=== PATIENT | female | born 1955 | race Caucasian/White ===

== ENCOUNTER → 2020-09-16 09:24 | Outpatient (BNVA) | payer OTHER, SELFPAY | PROVIDERS: PCP Internal Medicine; Visit Provider Orthopaedic Surgery | DX: M25.461 Effusion, right knee (principal); M17.0 Bilateral primary osteoarthritis of knee | CPT/HCPCS: 20610; J1100 ==

== ENCOUNTER 2024-01-16 13:41 | Outpatient (AMB) | payer MEDICARE, OTHER, SELFPAY ==
--- NOTE | 2024-01-16 14:05 | MHC.OFFVIS ---
Vital Signs 01/16/24 14:09 Height 5 ft Weight 140 lb BMI 27.3 Intake Visit Reasons: OV-B/L knee pain Intake Note: Izzy is a 68 year old female who presents as a new patient with bilateral knee pain. Patient reports her pain has been going on for about 2 years and is a 6 on the 1-10 pain scale. She is using advil, ice and elevation for the pain with some relief. She states she has had surgery on her left knee in 2014. She got fairly good relief from the surgery initially. She denies injury. Her Right knee is worse she can't kneel on it at all. She has had 2 cortisone injections given into her knees over the last 9 years. The injections gave her fairly good relief. She wishes to hold off on surgery if at all possible. Allergies doxycycline Allergy (Unknown, Verified 01/16/24 14:12) hives meperidine [From DEMEROL] Allergy (Unknown, Verified 01/16/24 14:12) PASSED OUT Medication List - Last Reconciled 01/16/24 by Koko Miramontes MD amlodipine 2.5 mg PO DAILY losartan-hydrochlorothiazide 50-12.5 mg 1 tab PO DAILY PFSH Surgical History Status post arthroscopic surgery of left knee (~2014) Family History Father No problems noted. Mother No problems noted. Social History Alcohol intake: current Patient Tobacco Use Status: Never used Tobacco Current occupational status: retired Current occupation: right handed Physical Exam Vital Signs: BMI result Body Mass Index 27.3 Const Other: Well-nourished well-developed very friendly female awake alert and oriented x3 in no acute distress Extrem Other: Bilateral lower extremity examination shows good capillary refill, no skin lesions noted, normal sensation light touch Bilateral knee examination shows minimal effusions, palpable crepitus with range of motion, pain with range of motion, no instability Results Reviewed Results Reviewed: X-rays of the patient's bilateral knee show joint space narrowing, subchondral sclerosis, no acute bony abnormalities Assessment & Plan Assessment & Plan (1) Arthritis of left knee: Code(s): M17.12 - Unilateral primary osteoarthritis, left knee Category: Medical (2) Arthritis of right knee: Code(s): M17.11 - Unilateral primary osteoarthritis, right knee Category: Medical Plan Ms. Hale presents with bilateral knee pains due to degenerative joint disease. I had a lengthy discussion with the patient regarding the treatment options. She wishes to hold off on surgery for as long as possible. I agree with this plan. The risks and benefits of bilateral knee cortisone injections were discussed at length with the patient. The patient wishes to proceed with the injections in 2 weeks just before she goes on a 1 month vacation in [place]. She will follow-up as instructed. Feel free to call me at any time should questions regarding her orthopedic management arise. Thank you very much for asking me to see this very friendly patient. I spent 22 minutes in reviewing the patient's records and imaging studies, seeing the patient and documenting in the medical record. Orders: Orders XR knee LT 3V Today M25.562 - Pain in left knee XR knee RT 3V Today M25.561 - Pain in right knee Coding Level of Care Code New Pt Level 2 (05849) Diagnoses Arthritis of left knee M17.12 Arthritis of right knee M17.11
[2024-01-16 14:09] VITALS: BMI 27.3
== END 2024-01-16 14:31 | disposition home or self-care (01) ==
PROVIDERS: PCP Internal Medicine; Visit Provider Orthopaedic Surgery
DX: M17.0 Bilateral primary osteoarthritis of knee (principal)
CPT/HCPCS: 99203

== ENCOUNTER 2024-01-16 14:34 | Outpatient (REF) | payer MEDICARE, OTHER, SELFPAY ==
--- NOTE | ~2024-01-16 | XR_ITS ---
EXAMINATION: XR BILATERAL KNEES CLINICAL INFORMATION: Pain in bilateral knees. COMPARISON: 11/28/2018. TECHNIQUE: 3 views of each knee. FINDINGS: LEFT KNEE: Bones are diffusely demineralized. Fcvhqqvd-uc-vpiukq narrowing of the medial compartment with prominent marginal osteophytes. Trace joint effusion. Increased posterior patellar osteophytes. Increased narrowing of the patellofemoral compartment. RIGHT KNEE: Bones are diffusely demineralized. Dskgiibw-pc-ckmnwf narrowing of the medial compartment with prominent marginal osteophytes. Trace joint effusion. Increased posterior patellar osteophytes. Increased narrowing of the patellofemoral compartment. XR/XR knee RT 3V IMPRESSION: Progression of degenerative changes in the bilateral knees.
--- NOTE | ~2024-01-16 | XR_ITS ---
EXAMINATION: XR BILATERAL KNEES CLINICAL INFORMATION: Pain in bilateral knees. COMPARISON: 11/28/2018. TECHNIQUE: 3 views of each knee. FINDINGS: LEFT KNEE: Bones are diffusely demineralized. Zuxkxvza-rg-xdvdxw narrowing of the medial compartment with prominent marginal osteophytes. Trace joint effusion. Increased posterior patellar osteophytes. Increased narrowing of the patellofemoral compartment. RIGHT KNEE: Bones are diffusely demineralized. Zpkuynmq-df-cwcihm narrowing of the medial compartment with prominent marginal osteophytes. Trace joint effusion. Increased posterior patellar osteophytes. Increased narrowing of the patellofemoral compartment. XR/XR knee LT 3V IMPRESSION: Progression of degenerative changes in the bilateral knees.
== END 2024-01-16 14:35 | disposition home or self-care (01) ==
LOC: HO.HOSX 14:34
PROVIDERS: Visit Provider Orthopaedic Surgery
DX: M17.0 Bilateral primary osteoarthritis of knee (principal)
CPT/HCPCS: 73562

== ENCOUNTER 2024-02-06 10:24 | Outpatient (AMB) | payer MEDICARE, OTHER, SELFPAY ==
[2024-02-06 10:35] VITALS: BMI 27.3
--- NOTE | 2024-02-06 10:35 | A.OFFVIS_ITS ---
Vital Signs 02/06/24 10:35 Height 5 ft Weight 140 lb BMI 27.3 Intake Visit Reasons: OV- B/L knee inj Intake Note: Izzy is a 68 year old female who presents for a follow up for her bilateral knee pain. Patient reports her pain is worse in her Right knee and has little pain in her Left knee at this time. She would like a cortisone injection in her Right knee today. She has done physical therapy exercises which aggravated her pain. She has also tried Tylenol and anti-inflammatory medicines which gave her minimal relief. Allergies doxycycline Allergy (Unknown, Verified 02/06/24 10:42) hives meperidine [From DEMEROL] Allergy (Unknown, Verified 02/06/24 10:42) PASSED OUT Medication List - Last Reconciled 02/07/24 by Koko Miramontes MD amlodipine 2.5 mg PO DAILY losartan-hydrochlorothiazide 50-12.5 mg 1 tab PO DAILY PFSH Surgical History Status post arthroscopic surgery of left knee (~2014) Family History Father No problems noted. Mother No problems noted. Social History Alcohol intake: current Patient Tobacco Use Status: Never used Tobacco Current occupational status: retired Current occupation: right handed Physical Exam Vital Signs: BMI result Body Mass Index 27.3 Const Other: Well-nourished well-developed very friendly female awake alert and oriented x3 in no acute distress Extrem Other: Bilateral lower extremity examination shows good capillary refill, no skin lesions noted, normal sensation light touch Right knee examination shows a minimal, mild crepitus with range of motion, pain with range of motion, no instability Office Procedures Joint Injection/Drain Joint Injection/Drain Primary Site: right knee Prep: site was prepped using aseptic technique Injected: 40 mg of, DepoMedrol and 1% plain lidocaine Procedure: The patient tolerated the procedure well Coding 48835 - Large joint Procedure code (CPT) selection complete Results Reviewed Results Reviewed: X-rays of the patient's right knee show joint space narrowing, subchondral sclerosis, no acute bony abnormalities Assessment & Plan Assessment & Plan (1) Arthritis of right knee: Code(s): M17.11 - Unilateral primary osteoarthritis, right knee Category: Medical Plan Ms. Hale presents with bilateral knee pains, right greater than left, due to degenerative joint disease. I had a lengthy discussion with the patient re garding the treatment options. The risks and benefits of a right knee cortisone injection were discussed at length with the patient. The patient wished to proceed. She tolerated the injection well. At this point the patient's left knee discomfort is tolerable to her. She will continue with her home exercise program. She will follow up me on an as-needed basis should her symptoms not plateau at an unacceptable level over the next few months. Feel free to call me at any time should questions regarding her orthopedic management arise. I spent 21 minutes in reviewing the patient's records and imaging studies, seeing the patient and documenting in the medical record. Orders: Orders AMB Joint Injection/Aspiration 02/06/24 M17.11 - Unilateral primary osteoarthritis, right knee Coding Level of Care Code Est Pt Level 3 (50385) Diagnoses Arthritis of right knee M17.11 CPT Codes Coding - 30570 Large joint: 81898 - Large joint ([id number])
== END 2024-02-06 11:09 | disposition home or self-care (01) ==
PROVIDERS: PCP Internal Medicine; Visit Provider Orthopaedic Surgery
DX: M17.11 Unilateral primary osteoarthritis, right knee (principal)
CPT/HCPCS: 20610; 99213

== ENCOUNTER → 2024-02-06 10:24 | Outpatient (BNVA) | payer OTHER, SELFPAY | PROVIDERS: PCP Internal Medicine; Visit Provider Orthopaedic Surgery | DX: M17.11 Unilateral primary osteoarthritis, right knee (principal) | CPT/HCPCS: 20610; J1010 ==

== ENCOUNTER 2024-09-09 08:36 | Outpatient (AMB) | payer MEDICARE, OTHER, SELFPAY ==
[2024-09-09 08:39] VITALS: BMI 27.3
--- NOTE | 2024-09-09 08:39 | MHC.OFFVIS ---
Vital Signs 09/09/24 08:39 Height 5 ft Weight 140 lb BMI 27.3 Intake Visit Reasons: Low back pain radiating down right leg Intake Note: Izzy is a 68 year old female who presents with complaints of progressively worsening low back pain which radiates down her right leg to her right foot. She also has intermittent neck pain. The patient describes her back pain as sharp in nature. The patient states that at times her pain is so severe that she has difficulty walking. She has tried Tylenol and anti-inflammatory medicines which gave her minimal relief. Her pain has gotten worse over the last year in spite of continued non operative treatments. She has failed the last 6 weeks of conservative treatment which has included physical therapy exercises, topical creams, Tylenol and anti-inflammatory medicines. At this point the patient's low back pain is interfering with her activities of daily living and her ability to sleep well through the night. Allergies doxycycline Allergy (Unknown, Verified 09/09/24 08:48) hives meperidine [From DEMEROL] Allergy (Unknown, Verified 09/09/24 08:48) PASSED OUT Medication List - Last Reconciled 09/09/24 by Koko Miramontes MD amlodipine 2.5 mg PO DAILY losartan-hydrochlorothiazide 50-12.5 mg 1 tab PO DAILY [facility] Surgical History Status post arthroscopic surgery of left knee (~2014) Family History Father No problems noted. Mother No problems noted. Social History Alcohol intake: current Patient Tobacco Use Status: Never used Tobacco Current occupational status: retired Current occupation: right handed Physical Exam Vital Signs: BMI result Body Mass Index 27.3 Const Other: Well-nourished well-developed very friendly female awake alert and oriented x3 in no acute distress Back/Spine/Pelvis Other: Low back examination shows right-sided paraspinal muscle tenderness, pain with range of motion, positive straight leg raise test on the right at 70 degrees, 4/5 strength with testing of her right hip flexors and knee extensors when compared to 5/5 strength on her left side Assessment & Plan Assessment & Plan (1) Low back pain radiating to right leg: Code(s): M54.50 - Low back pain, unspecified; M79.604 - Pain in right leg Category: Medical Plan Ms. Hale presents with progressively worsening low back pain which radiates down her right leg as well as associated right leg weakness possibly due to lumbar stenosis or a disc herniation. Thus, I will send the patient for an MRI of her lumbar spine for further evaluation. I will see her back once the MRI is completed. She will call me prior to that time should her symptoms worsen in any way. Feel free to call me at any time should questions regarding her orthopedic management arise. I spent 21 minutes in reviewing the patient's records and imaging studies, seeing the patient and documenting in the medical record. Orders: Orders MR lumbar spine wo con Today M54.50 - Low back pain, unspecified, M79.604 - Pain in right leg Coding Level of Care Code Est Pt Level 3 (60234) Complex EM visit Add On G2211 Diagnoses Low back pain radiating to right leg M54.50; M79.604
== END 2024-09-09 09:00 | disposition home or self-care (01) ==
PROVIDERS: PCP Internal Medicine; Visit Provider Orthopaedic Surgery
DX: M54.50 Low back pain, unspecified (principal); M79.604 Pain in right leg
CPT/HCPCS: 99213; G2211

== ENCOUNTER → 2024-09-09 08:36 | Outpatient (BNVA) | payer MEDICARE, OTHER, SELFPAY | PROVIDERS: PCP Internal Medicine; Visit Provider Orthopaedic Surgery | DX: M54.50 Low back pain, unspecified (principal); M79.604 Pain in right leg | CPT/HCPCS: 99212 ==

== ENCOUNTER → 2024-10-02 10:18 | Outpatient (BNV) | payer MEDICARE, OTHER, SELFPAY | PROVIDERS: PCP Internal Medicine; Visit Provider Specialist | DX: M79.604 Pain in right leg (principal) | CPT/HCPCS: 72148 ==

== ENCOUNTER 2024-10-02 10:25 | Outpatient (REF) | payer MEDICARE, OTHER, SELFPAY ==
--- NOTE | ~2024-10-02 | MR_ITS ---
CLINICAL HISTORY: M79.604 - Pain in right leg MR lumbar spine without gadolinium Comparison: None Findings: No scoliosis or spondylolisthesis. No acute fracture or pathologic bone lesion. Cauda equina and conus medullaris within normal limits. Multiple level minimal to moderate broad-based degenerative disc bulge and degenerative facet change No stenoses. Paraspinous musculature intact. IMPRESSION: No acute findings. This document has been electronically signed by: Mazin Espinoza MD on 10/03/2024 08:37:28
== END 2024-10-02 10:26 | disposition home or self-care (01) ==
LOC: HO.MRI 10:25
PROVIDERS: PCP Internal Medicine; Visit Provider Orthopaedic Surgery
DX: M79.604 Pain in right leg (principal); M54.50 Low back pain, unspecified
CPT/HCPCS: 72148

== ENCOUNTER 2024-11-25 10:56 | Outpatient (AMB) | payer MEDICARE, OTHER, SELFPAY ==
--- NOTE | 2024-11-25 10:58 | MHC.OFFVIS ---
Vital Signs 11/25/24 11:01 Height 5 ft Weight 140 lb BMI 27.3 Intake Visit Reasons: OV- lumbar spine MRI review Intake Note: Izzy is a 68 year old female who presents with complaints of progressively worsening low back pain which radiates down her right leg to her right foot as well as pain along the posterior aspect of her right knee. She also has intermittent neck pain. The patient describes her back pain as sharp in nature. The patient states that at times her knee pain is so severe that she has difficulty walking. She has tried Tylenol and anti-inflammatory medicines which gave her minimal relief. Her pain has gotten worse over the last year in spite of continued non operative treatments. She has failed the last 6 weeks of conservative treatment which has included physical therapy exercises, topical creams, Tylenol and anti-inflammatory medicines. At this point the patient's low back pain and posterior right knee pain are interfering with her activities of daily living and her ability to sleep well through the night. Allergies doxycycline Allergy (Unknown, Verified 11/25/24 11:01) hives meperidine [From DEMEROL] Allergy (Unknown, Verified 11/25/24 11:01) PASSED OUT Medication List - Last Reconciled 11/25/24 by Koko Miramontes MD amlodipine 2.5 mg PO DAILY losartan-hydrochlorothiazide 50-12.5 mg 1 tab PO DAILY [facility] Surgical History Status post arthroscopic surgery of left knee (~2014) Family History Father No problems noted. Mother No problems noted. Social History Alcohol intake: current Patient Tobacco Use Status: Never used Tobacco Current occupational status: retired Current occupation: right handed Physical Exam Vital Signs: BMI result Body Mass Index 27.3 Const Other: Well-nourished well-developed very friendly female awake alert and oriented x3 in no acute distress Back/Spine/Pelvis Other: Low back examination shows right-sided paraspinal muscle tenderness, pain with range of motion, positive straight leg raise test on right at 70 degrees Extrem Other: Right knee examination shows a minimal effusion, palpable crepitus with range of motion, pain with range of motion, no instability Results Reviewed Results Reviewed: X-rays of the patient's right knee taken previously show moderate joint space narrowing most significant in the patellofemoral joint, no acute bony abnormalities MRI of the patient's lumbar spine shows ?multiple level of minimal to moderate broad-based degenerative disc bulge and degenerative facet changes Assessment & Plan Assessment & Plan (1) Right knee pain: Code(s): M25.561 - Pain in right knee Category: Medical (2) Low back pain radiating to right leg: Code(s): M54.50 - Low back pain, unspecified; M79.604 - Pain in right leg Category: Medical Plan: Ms. Hale presents with low back pain which radiates down her right leg as well as pain along the posterior aspect of her right knee of unclear etiology. The patient's symptoms might be coming from her degenerative disc disease or her right knee arthritis. Thus, I will arrange for her to have a follow-up appointment with Dr. Whitmore from our pain management Department to see if she is a candidate for diagnostic and possibly therapeutic injections into her knee or back. Feel free to call me at any time should questions regarding her orthopedic arise. I spent 21 minutes in reviewing the patient's records and imaging studies, seeing the patient and documenting in the medical record. Plan I spent 21 minutes in reviewing the patient's records and imaging studies, seeing the patient and documenting in the medical record. Orders: Referrals Pain Management Referral M25.561 - Pain in right knee, M54.50 - Low back pain, unspecified, M79.604 - Pain in right leg Coding Level of Care Code Est Pt Level 3 (09204) Complex EM visit Add On G2211 Diagnoses Right knee pain M25.561 Low back pain radiating to right leg M54.50; M79.604
[2024-11-25 11:01] VITALS: BMI 27.3
== END 2024-11-25 11:35 | disposition home or self-care (01) ==
LOC: HO.HOS 10:57
PROVIDERS: PCP Internal Medicine; Visit Provider Orthopaedic Surgery
DX: M54.50 Low back pain, unspecified (principal); M79.604 Pain in right leg; M25.561 Pain in right knee
CPT/HCPCS: 99213; G2211

== ENCOUNTER → 2024-11-25 10:56 | Outpatient (BNVA) | payer MEDICARE, OTHER, SELFPAY | PROVIDERS: PCP Internal Medicine; Visit Provider Orthopaedic Surgery | DX: M25.561 Pain in right knee (principal); M54.50 Low back pain, unspecified; M79.604 Pain in right leg | CPT/HCPCS: 99212 ==

== ENCOUNTER 2025-01-14 10:18 | Outpatient (AMB) | payer MEDICARE, OTHER, SELFPAY ==
--- NOTE | 2025-01-14 10:24 | MHC.OFFVIS ---
Vital Signs 01/14/25 10:26 Height 5 ft Weight 144 lb BMI 28.1 BP 171/72 H Blood Pressure Location Lt brachial Position Sitting Respiration 16 Pulse 63 Pulse Source Pulse Oximeter Pulse Oximetry (%) 97 Oxygen Delivery Method Room Air Intake Visit Reasons: Pain in right knee Vice President Of Compliance Required: No Allergies doxycycline Allergy (Unknown, Verified 01/14/25 10:28) hives meperidine [From DEMEROL] Allergy (Unknown, Verified 01/14/25 10:28) PASSED OUT Medication List - Last Reconciled 01/14/25 by Jo Celis LPN amlodipine 2.5 mg PO DAILY losartan-hydrochlorothiazide 50-12.5 mg 1 tab PO DAILY HPI HPI Pain in right knee: Details: History of Present Illness The patient is a 69-year-old female presenting with complaints related to low back degenerative disc disease and arthritis of her right knee. Over the last six months, she has been experiencing sharp, stabbing pain behind her knees, triggered by movement such as pivoting, but not by stationary positions or during rest. The episodes, which last for about two minutes, reach a pain intensity of 10/10 but do not impact her sleep or day-to-day activities. Previously performed MRI scans suggest possible issues with lower spinal discs; however, they do not confirm these as sources of the knee pain. Cortisone injections taken for knee arthritis did not affect this particular pain issue. Historically, pain began on the right side and progressed to include the left, exacerbated without swelling, stiffness, or at rest discomfort, leading to consideration of local knee issues rather than nerve-related discomfort. The patient, with a known left-sided meniscus resection 10 years ago, now also fears instability and possible falls, exacerbated by environmental conditions such as cobblestone walking. Pain Description - Onset: Approximately six months ago. - Pain quality: Sharp, stabbing sensation. No burning, numbness or tingling. - Location: Behind the knees. - Triggering movements: Pivoting or moving rapidly in either direction. - Peak pain intensity: 10/10. - Duration: Lasting about two minutes per episode. - Frequency: Occurs with movement, absent at rest or inactivity. - Exacerbating factors: Any dynamic movement, especially pivoting. - Alleviating factors: Stationary positions or rest. - Impact on activities: No interference with sleep or daily activities. Physical Exam - Appears afebrile. - Alert and oriented. - Mood and affect appropriate. - Follows and participates in conversation appropriately. - Respiratory effort is unlabored. - Able to transition from sit to stand unassisted. - Ambulates with bilaterally normal heel strike and toe off. - Able to stand and walk on toes and heels. - Mild tenderness to palpation in the popliteal fossa bilaterally. Results - MRI of the lumbar spine: No definitive findings connecting back issues to knee pain. - Cortisone injections history for knee arthritis: No relief for current pain episodes. Pain Management - Affect: Anxiety regarding potential falls due to knee instability. - Analgesia: High pain ratings during episodes; current medication effectiveness unreported. - Adverse Effects: NONE stated. - Activities of Daily Living: Pain affects movement but not sleep; fear of falling persists during sudden changes in motion. - Aberrant Drug Related Behaviors: NONE reported. [facility] Surgical History Status post arthroscopic surgery of left knee (~2014) Family History Father No problems noted. Mother No problems noted. Social History Alcohol intake: current Patient Tobacco Use Status: Never used Tobacco Current occupational status: retired Current occupation: right handed Physical Exam Vital Signs: Last Vital Signs Pulse 63 01/14/25 10:26 Resp 16 01/14/25 10:26 BP 171/72 H 01/14/25 10:26 Pulse Ox 97 01/14/25 10:26 Oxygen Delivery Method Room Air 01/14/25 10:26 BMI result Body Mass Index 28.1 Assessment & Plan Assessment & Plan (1) Left knee pain: Code(s): M25.562 - Pain in left knee Category: Medical (2) Right knee pain: Code(s): M25.561 - Pain in right knee Category: Medical Plan Plan - Arrange MRI for knees to gather more information on internal structure and possible pathology. - Assess potential benefits from PRP injections for inflammation mitigation and soft tissue regeneration post-MRI. - Collaborate with patient regarding physical therapy as mechanical issues grow clearer. - Monitor progression and effectiveness of interventions following the MRI results. Patient was informed and verbally consented to the use of an ambient scribe for clinic note documentation during this visit. Discussion Notes I discussed the potential sources of the patient's knee pain, likely originating from within the knee rather than the back. The recommendation involves an MRI specifically targeting the knees, as prior lumbar spine MRI did not reveal the cause tied to nerve root entrapment. We discussed the notion of soft tissue involvement, potentially addressing meniscal or soft tissue issues affecting the knee. Differentials include distal hamstring tendinopathy and meniscal injury. After reviewing her concerns regarding mobility and risk of falling, an MRI was ordered to visualize the knee's internal structures better and seek clarity on future interventions. I proposed potential treatments, such as platelet-rich plasma injections, should inflammation or soft tissue degeneration prove significant. We also reviewed the possibility of mechanical pain derivation, recommending evaluating further based on MRI determinations. I assured the patient that diagnostic procedures and follow-up options would be communicated timely, ensuring optimal pain management and adventist of function. Patient Instructions - Await phone call to schedule knee MRI appointment. - Monitor and note any changes in pain pattern or frequency. - Contact if any new concerning symptoms arise. - Prepare for additional physical therapy consultation post-MRI if pain mechanics warrant it. - Continue usual daily activities, avoiding sudden motions that trigger pain. Orders: Orders MR knee LT wo con 01/14/25 M25.562 - Pain in left knee MR knee RT wo con 01/14/25 M25.561 - Pain in right knee Coding Level of Care Code New Pt Level 4 (55885) Diagnoses Left knee pain M25.562 Right knee pain M25.561
[2025-01-14 10:26] VITALS: BP 171/72; PULSE 63; RESP 16; O2SAT 97; BMI 28.1
--- OUTSIDE RECORDS SUMMARY | 2025-01-14 11:33 | XMS_ITS | Encounter Summary ---
Author Organization [facility] Address [address] [place] [address] Care Team Providers Care Newspaper Inserter Name Role Phone Brigette Garcia MD Primary Care Provider [facility] Dale Cardenas MD Unavailable [phone] Joan Lynn NP Unavailable [phone] Encounter Details Date Type Department Care Team Description 12/25/2023 SCAN Card[facility] [address] [facility] [address] [place] [id number] Abstract, Provider Social History Tobacco Use Types Packs/Day Years Used Date Smoking Tobacco: Never Smokeless Tobacco: Never Alcohol Use Standard Drinks/Week Comments Yes 0 (1 standard drink = 0.6 oz pur e alcohol) red wine 3-4 times/weekly Sex Assigned at Date Recorded Not on file Job Start Date Occupation Industry Not on file Not on file Not on file documented as of this encounter Plan of Treatment Not on file documented as of this encounter Visit Diagnoses Not on filedocumented in this encounter Care Teams Newspaper Inserter Relationship Specialty Start Date End Date Brigette Garcia MD PCP - General Internal Medicine 07/25/22 Dale Cardenas MD [address] [facility] [address] [place] [address] Development Executive Cardiovascular Disease 12/28/23 Joan Lynn NP [address] [place] [address] [address] [place] [address] Cardiology 05/14/24 documented as of this encounter
--- OUTSIDE RECORDS SUMMARY | 2025-01-14 11:33 | XMS_ITS | Clinical Summary ---
Author Organization [facility] Address [address] [place] [address] Care Team Providers Care Aquatics Coordinator Name Role Phone Brigette Garcia MD Primary Care Provider [phone] Allergies Active Allergy Reactions Criticality Noted Date Comments Meperidine 05/04/2022 Doxycycline 05/04/2022 Medications Medication Sig Dispensed Refills Start Date End Date Status alendronate (FOSAMAX) tablet 10 mg Take 10 mg by mouth every morning before breakfast. Take with water on empty stomach/Nothing by mouth and do not lie down for next 30 minutes 0 Active Active Problems No known active problems Social History Tobacco Use Types Packs/Day Years Used Date Smoking Tobacco: Never Smokeless Tobacco: Never Alcohol Use Standard Drinks/Week Comments Yes 7 (1 standard drink = 0.6 oz pur e alcohol) Sex and Gender Information Value Date Recorded Sex Assigned at Not on file Gender Identity Not on file Sexual Orientation Not on file Job Start Date Occupation Industry Not on file Not on file Not on file Last Filed Vital Signs Vital Sign Reading Time Taken Comments Blood Pressure 150/71 04/27/2022 11:26 AM EDT Pulse 69 04/27/2022 11:26 AM EDT Temperature 36.8 ??C (98.2 ??F) 04/27/2022 11:26 AM E DT Respiratory Rate - - Oxygen Saturation 99% 04/27/2022 11:26 AM EDT Inhaled Oxygen Concentration - - Weight 63 kg (139 lb) 04/27/2022 11:26 AM EDT Height - - Body Mass Index - - Plan of Treatment Health Maintenance Due Date Last Done Comments Hepatitis C Screening 1955 COVID-19 Vaccine (#1) 05/13/1958 Depression Screening 1969 Preventative Health Evaluation 11/11/1975 Colon Cancer Screening (Colonoscopy) 2002 Breast Cancer Screening (Mammogram) 11/11/2007 Shingrix-Zoster Vaccine (1 of 2) 11/11/2007 DTap / Tdap / Td (2 - Td or Tdap) 05/15/2017 007 Fall Risk Assessment 2022 Osteoporosis Screening (DEXA Scan) 2022 Pneumococcal Vaccine (1 of 1 - PCV) 2022 Influenza Vaccine (#1) 2024 RSV Adult > 60+ Yrs or Pregn ant (1 - 1-dose 75+ series) 2032 Hepatitis B Vaccines Aged Out No long er eligible based on patient's age to complete this topic RSV Ped < 20 months Aged Out No longe r eligible based on patient's age to complete this topic Care Teams Aquatics Coordinator Relationship Specialty Start Date End Date Brigette Garcia MD [address] [place] [address] PCP - General Internal Medicine 03/27/22
--- OUTSIDE RECORDS SUMMARY | 2025-01-14 11:33 | XMS_ITS | Encounter Summary ---
Author Organization [facility] Address [address] [place] [address] Care Team Providers Care Senior Principal Name Role Phone Nimo Cerda MD Primary Care Provider [phone] Brigette Garcia MD Primary Care Provider Dale Lawton MD Unavailable [phone] Joan Lynn NP Unavailable [phone] Reason for Visit * Reason Onset Date Comments REFERRAL 02/25/2014 Encounter Details Date Type Department Care Team Description 02/25/2014 Telephone Adult Medicine [address] [id number] Berkley See PA-C REFERRAL Social History Tobacco Use Types Packs/Day Years Used Date Smoking Tobacco: Never Smokeless Tobacco: Never Alcohol Use Standard Drinks/Week Comments Yes 0 (1 standard drink = 0.6 oz pur e alcohol) red wine 3-4 times/weekly Sex Assigned at Date Recorded Not on file Job Start Date Occupation Industry Not on file Not on file Not on file documented as of this encounter Miscellaneous Notes * Telephone Encounter - Adelaida Navarrete - 02/25/2014 1:19 PM EDT Pt was put on the Urology referrals report for: uti frequent; Priority: Next Available; Pt was called and a letter was sent; pt has not responded. documented in this encounter Plan of Treatment Not on file documented as of this encounter Visit Diagnoses Not on filedocumented in this encounter Care Teams Senior Principal Relationship Specialty Start Date End Date Nimo Cerda MD [address] [place] [address] PCP - General 01/02/1998 07/24/22 Brigette Garcia MD [address] [place] [address] PCP - General Internal Medicine 07/25/22 Dale Cardenas MD [address] [place] [address] [address] [place] [address] Sugar Boiler Cardiovascular Disease 12/28/23 Joan Lynn NP [address] [place] [address] [address] [place] [address] Cardiology 05/14/24 documented as of this encounter
--- OUTSIDE RECORDS SUMMARY | 2025-01-14 11:33 | XMS_ITS | Encounter Summary ---
Author Organization [facility] Address [address] [place] [address] Care Team Providers Care Extruding Press Adjuster Name Role Phone Nimo Cerda MD Primary Care Provider [phone] Brigette Garcia MD Primary Care Provider Dale Lawton MD Unavailable [phone] Joan Lynn NP Unavailable [phone] Encounter Details Date Type Department Care Team Description 03/16/2005 Orders Only Medical [address] [place] [address] [phone] Nimo Cerda MD [address] [place] [address] [phone] ROUTINE GENERAL MEDICAL EXAMINATION AT A HEALTH CARE FACILITY (Primary Dx) Social History Tobacco Use Types Packs/Day Years Used Date Smoking Tobacco: Never Assessed Sex Assigned at Date Recorded Not on file Job Start Date Occupation Industry Not on file Not on file Not on file documented as of this encounter Plan of Treatment Scheduled Orders Name Type Priority Associated Diagnoses Orde r Schedule VENIPUNCTURE Lab Routine Routine General Medical Examination At A Health Care Facility Ordered: 03/16/2005 documented as of this encounter Procedures Procedure Name Priority Date/Time Associated Diagnosis Comments CHG BLOOD COUNT COMPLETE AUTO&AUTO DIFRNTL WBC Routine 03/16/2005 9:26 AM EDT Routine General Medical Examination At A Health Care Facility CHG LIPID PANEL Routine 03/16/2005 9:26 AM EDT Routine General Medical Examination At A Health Care Facility documented in this encounter Results * (ABNORMAL) CBC (AUTO DIFF & PLATELET) (03/16/2005 9:26 AM EDT) WHITE BLOOD COUNT 4.5(L) 4.8 - 10.8 x10-3 [facility] RED BLOOD COUNT 5.0(H) 3.8 - 4.8 x10-6 [facility] Hemoglobin 14.1 12.0 - 15.0 g/dL [facility] Hematocrit 42.8 36 - 46 % [facility] MEAN CORPUSCULAR VOLUME 85.9 79 - 98 fl [facility] MEAN CORPUSCULAR HEMOGLOBIN 28.3 27 - 32 pg [facility] MEAN CORPUSCULAR HGB CONC 32.9 32 - 37 g/dl [facility] RED CELL DISTRIBUTION WIDTH 12.5 11 - 15 % [facility] PLT COUNT 215 130 - 400 x10-3 [facility] NEUTROPHILS % 53 41 - 85 % [facility] LYMPH % 35 15 - 48 % [facility] 03/16/2005 9:26 AM EDT 03/16/2005 9:27 AM EDT Nimo Cerda MD LAB [facility] * LIPID PROFILE (03/16/2005 9:26 AM EDT) Cholesterol 156 0 - 200 mg/dL [facility] TRIGLYCERIDES 42 0 - 150 mg/dL [facility] HDL CHOLESTEROL 78 >40 mg/dL [facility] LDL CALCULATED 70 0 - 100 mg/dL [facility] TC-HDLC RATIO 2.0 0 - 4.4 mg/dL [facility] 03/16/2005 9:26 AM EDT 03/16/2005 9:27 AM EDT Nimo Cerda MD LAB [facility] documented in this encounter Visit Diagnoses Diagnosis Routine general medical examination at a health care facility- Primary documented in this encounter Care Teams Extruding Press Adjuster Relationship Specialty Start Date End Date Nimo Cerda MD [address] [place] [address] PCP - General 01/02/1998 07/24/22 Brigette Garcia MD [address] [place] [address] PCP - General Internal Medicine 07/25/22 Dale Cardenas MD [address] [place] [address] [address] [place] [address] Television Service Engineer Cardiovascular Disease 12/28/23 Joan Lynn NP [address] [place] [address] [address] [place] [address] Cardiology 05/14/24 documented as of this encounter
--- OUTSIDE RECORDS SUMMARY | 2025-01-14 11:33 | XMS_ITS | Encounter Summary ---
Author Organization [facility] Address [address] [place] [address] Care Team Providers Care Aged Or Disabled Carer Name Role Phone Nimo Cerda MD Primary Care Provider [phone] Brigette Garcia MD Primary Care Provider Dale Lawton MD Unavailable Joan Lynn LICENSED REAL ESTATE BROKER Unavailable [phone] Encounter Details Date Type Department Care Team Description 04/17/2017 Telephone Medical Records [address] [place] [address] Abstract, Provider Social History Tobacco Use Types [...] on filedocumented in this encounter Care Teams Aged Or Disabled Carer Relationship Specialty Start Date End Date Nimo Cerda MD [address] [place] [address] PCP - General 01/02/1998 07/24/22 Brigette Garcia MD [address] [place] [address] PCP - General Internal Medicine 07/25/22 Dale Cardenas MD [address] [place] [address] Electro Winning Operator Cardiovascular Disease 12/28/23 Joan Lynn NP [address] [place] [address] [address] [place] [address] Cardiology 05/14/24 documented as of this encounter
--- OUTSIDE RECORDS SUMMARY | 2025-01-14 11:33 | XMS_ITS | Encounter Summary ---
Author Organization [facility] Address [address] [place] [address] Care Team Providers Care Custodial Operations Manager Name Role Phone Nimo Cerda MD Primary Care Provider [phone] Brigette Garcia MD Primary Care Provider Dale Lawton MD Unavailable [phone] Jona Lynn NP Unavailable [phone] Encounter Details Date Type Department Care Team Description 02/10/2021 Photovoltaic Installer Report Medical Records [address] [place] [address] Debbie Turner MD Social History Tobacco Use Types Packs/Day Years [...] on filedocumented in this encounter Care Teams Custodial Operations Manager Relationship Specialty Start Date End Date Nimo Cerda MD [address] [place] [address] PCP - General 01/02/1998 07/24/22 Brigette Garcia MD [address] [place] [address] PCP - General Internal Medicine 07/25/22 Dale Cardenas MD [address] [place] [address] [address] [place] [address] Power Digger Operator Cardiovascular Disease 12/28/23 Joan Lynn, LIBRADO [address] [place] [address] [address] [place] [address] Cardiology 05/14/24 documented as of this encounter
--- OUTSIDE RECORDS SUMMARY | 2025-01-14 11:33 | XMS_ITS ---
Author Organization [facility] Address [address] [place] [address] Care Team Providers Care Eap Counselor Name Role Phone PATRICIA STEWARD Unavailable [phone] YOBANY SIMMS Unavailable [phone] REASON FOR VISIT appt and medicine Encounters Encounter Location Date Provider Diagnosis [phone] [address] 12/24/2024 YOBANY SIMMS PLAN OF TREATMENT Next Appt Details Provider Name:YOBANY SIMMS, 03/31/2025 11:15:00 AM, [address], [place], [address], Progress Notes * HALELori GONZALEZjorgeDOB:1955 (69 yo F)Acc No.[id number]:12/24/2024 Patient:??Izzy HLAE :1955?Age:69 Y?Sex:Fe male Address:[address] [place] [address] * true * Date:??
--- OUTSIDE RECORDS SUMMARY | 2025-01-14 11:33 | XMS_ITS | Encounter Summary ---
Author Organization [facility] Address [address] [place] [address] Care Team Providers Care Lead Systems Analyst Name Role Phone Nimo Cerda MD Primary Care Provider [phone] Brigette Garcia MD Primary Care Provider Dale Lawton MD Unavailable [phone] Joan Lynn CLINICAL APPLICATION MANAGER Unavailable [phone] Encounter Details Date Type Department Care Team Description 04/10/2017 Correctional Guard Report Medical Records [address] [place] [address] Olvin Herrera Social History Tobacco Use Types Packs/Day Years [...] on filedocumented in this encounter Care Teams Lead Systems Analyst Relationship Specialty Start Date End Date Nimo Cerda MD [address] [place] [address] PCP - General 01/02/1998 07/24/22 Brigette Garcia MD [address] [place] [address] PCP - General Internal Medicine 07/25/22 Dale Cardenas MD [address] [place] [address] [place] [address] Harbormaster Cardiovascular Disease 12/28/23 Joan Lynn NP [address] [place] [address] [address] [place] [address] Cardiology 05/14/24 documented as of this encounter
--- OUTSIDE RECORDS SUMMARY | 2025-01-14 11:33 | XMS_ITS | Encounter Summary ---
Author Organization [facility] Address [address] [place] [address] Care Team Providers Care Community Health Navigator Name Role Phone Nimo Cerda MD Primary Care Provider [phone] Brigette Garcia MD Primary Care Provider [facility]availformerly [facility] e Dale Cardenas MD Unavailable [phone] Joan Lynn NP Unavailable [phone] Encounter Details Date Type Department Care Team Description 03/15/2017 Fiberglass Insulation Installer Report Medical Records [address] [place] [address] [facility] [address] [place] [address] Social History Tobacco Use Types Packs/Day Years [...] on filedocumented in this encounter Care Teams Community Health Navigator Relationship Specialty Start Date End Date Nimo Cerda MD [address] [place] [address] PCP - General 01/02/1998 07/24/22 Brigette Garcia MD [address] [place] [address] PCP - General Internal Medicine 07/25/22 Dale Cardenas MD [address] [place] [address] [address] [place], [place] [id number] Center Machine Set Up Operator Cardiovascular Disease 12/28/23 Joan Lynn, LIBRADO [address] [place] [address] [address] [place] [address] Cardiology 05/14/24 documented as of this encounter
--- OUTSIDE RECORDS SUMMARY | 2025-01-14 11:33 | XMS_ITS | Encounter Summary ---
Author Organization [facility] Address [address] [place] [address] Care Team Providers Care Metal Expediter Name Role Phone Nimo Cerda MD Primary Care Provider [phone] Brigette Garcia MD Primary Care Provider Dale Lawton MD Unavailable [phone] Joan Lnyn NAVAL ARCHITECT Unavailable [phone] Encounter Details Date Type Department Care Team Description 10/28/2014 Release of Information Medical Records [address] [place] [address] Abstract, Provider Social History Tobacco Use Types [...] on filedocumented in this encounter Care Teams Metal Expediter Relationship Specialty Start Date End Date Nimo Cerda MD [address] [place] [address] PCP - General 01/02/1998 07/24/22 Brigette Garcia MD [address] [place] [address] PCP - General Internal Medicine 07/25/22 Dale Cardenas MD [address] [place] [address] Director Apparel Cardiovascular Disease 12/28/23 Joan Lynn NP [address] [place] [address] [address] [place] [address] Cardiology 05/14/24 documented as of this encounter
--- OUTSIDE RECORDS SUMMARY | 2025-01-14 11:33 | XMS_ITS | Encounter Summary ---
Author Organization [facility] Address [address] [place] [address] Care Team Providers Care Front Line Leader Name Role Phone Nimo Cerda MD Primary Care Provider [phone] Brigette Garcia MD Primary Care Provider Dale Lawton MD Unavailable [phone] Joan Lynn NP Unavailable [phone] Reason for Visit * Reason Onset Date Comments Provider Call Back 09/11/2013 Encounter Details Date Type Department Care Team Description 09/11/2013 Telephone Gastroenterology - [address] [address] Venu Nogueira MD Provider Call Back Social History Tobacco Use Types Packs/Day Years Used Date Smoking Tobacco: Never Smokeless Tobacco: Never Alcohol Use Standard Drinks/Week Comments Yes 0 (1 standard drink = 0.6 oz pur e alcohol) socially Sex Assigned at Date Recorded Not on file Job Start Date Occupation Industry Not on file Not on file Not on file documented as of this encounter Miscellaneous Notes * Telephone Encounter - Venu Nogueira MD - 09/11/2013 11:57 AM EST She can continue this. * Telephone Encounter - Patsy Matos - 09/11/2013 10:20 AM EST Patient is calling because she is on an Antibiotic for Styes in her eyes, it is call Doxycycline-Hyclate- 50mg per day, would she be okay to continue taking this or should she stop documented in this encounter Plan of Treatment Not on file documented as of this encounter Visit Diagnoses Not on filedocumented in this encounter Care Teams Front Line Leader Relationship Specialty Start Date End Date Nimo Cerda MD [address] [place] [address] PCP - General 01/02/1998 07/24/22 Brigette Garcia MD [address] [place] [address] PCP - General Internal Medicine 07/25/22 Dale Cardenas MD [address] [place] [address] [address] [place] [address] Tube Lancer Cardiovascular Disease 12/28/23 Joan Lynn NP [address] [place] [address] [address] [place] [address] Cardiology 05/14/24 documented as of this encounter
--- OUTSIDE RECORDS SUMMARY | 2025-01-14 11:34 | XMS_ITS | Encounter Summary ---
Author Organization [facility] Address [address] [place] [address] Care Team Providers Care Logging Crew Supervisor Name Role Phone Nimo Cerda MD Primary Care Provider [phone] Brigette Garcia MD Primary Care Provider Dale Lawton MD Unavailable [phone] Joan Lynn NP Unavailable [phone] Reason for Visit * Reason Onset Date Comments Urinary Tract Infection 12/06/2012 Encounter Details Date Type Department Care Team Description 12/06/2012 Telephone Adult Medicine [address] [phone] Nimo Cerda MD [address] [place] [address] [phone] Urinary Tract Infection Social History Tobacco Use Types Packs/Day Years [...] encounter Miscellaneous Notes * Telephone Encounter - Farheen Manuela López - 12/06/2012 11:56 AM EDT Pt has had bladder pain and pressure x 3 days Pt has not had any chest pain or SOB, denies any N/V/D or fever, has lower abd pain and pressure with bloating in the lower pelvic area .she has no dysuria, no urgency or frequency, she has no blood in the urine, she has not been constipated Pt to see Jesse stephenson at 3:00 Past Medical History Diagnosis Date ??? 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 Chest pain, unspecified 05/15/2007 ETT (-) 2005 Outpatient Prescriptions Prior to Visit Medication Sig Dispense Refill ??? MULTIVITAMIN OR qd * Telephone Encounter - Toña Kowalski - 12/06/2012 11:39 AM EDT Symptoms patient is presenting: pt has uti or bladder infection, pt having pain and pressure How long has patient had these symptoms?: 3 days PCP: Nimo Cerda MD [facility] Plan: PPO $15 [place] [id number] Product Type: PPO [id number] documented in this encounter Plan of Treatment Not on file documented as of this encounter Visit Diagnoses Not on filedocumented in this encounter Care Teams Logging Crew Supervisor Relationship Specialty Start Date End Date Nimo Cerda MD [address] [place] [address] PCP - General 01/02/1998 07/24/22 Brigette Garcia MD [address] [place] [address] PCP - General Internal Medicine 07/25/22 Dale Cardenas MD [address] [place] [address] [place] [address] Plate Glass Polisher Cardiovascular Disease 12/28/23 Joan Lynn NP [address] [place] [address] [place] [address] Cardiology 05/14/24 documented as of this encounter
--- OUTSIDE RECORDS SUMMARY | 2025-01-14 11:34 | XMS_ITS | Clinical Summary ---
Author Organization [facility] Address [address] [place] [address] Care Team Providers Care Property Custodian Name Role Phone Brigette Garcia MD Primary Care Provider Dale Lawton MD Unavailable [phone] Joan Lynn NP Unavailable [phone] Allergies Active Allergy Reactions Severity Noted Date Comments Meperidine Hcl 2005 Doxycycline 2019 hives Medications Medication Sig Dispensed Refills Start Date End Date Status Multiple Vitamins-Minerals (MULTIVITAMIN & MINERAL OR) Take 1 Tablet by mouth daily. 0 Active losartan (COZAAR) 50 MG tablet Take 1 Tablet by mouth daily. 0 Active aspirin 81 MG EC tablet Take 1 Tablet by mouth daily. 0 Active amlodipine (NORVASC) 5 MG tablet Take 1 Tablet by mouth daily. 90 Tablet 2 05/14/2024 Active Active Problems Problem Noted Date Snoring 05/14/2024 Last Assessment & Plan: Patient reports that she does snore during the night. Will order sleep apnea study. SEAY (dyspnea on exertion) 05/14/2024 Last Assessment & Plan: Patient still reporting some dyspnea on exertion especially when she is going upstairs. She has had recent 48-hour Holter monitor, EKG, and stress echo testing which did not reveal an underlying cause. Did discuss with the patient the importance of proper weight management, she has added 10 pounds over the past year which could be contributing to this dyspnea on exertion. I have also educated the patient on the importance of exercise. I have instructed her to follow-up with her PCP as source of dyspnea on exertion does not appear to be cardiac related. Abnormal stress test 01/07/2024 Last Assessment & Plan: Patient's stress test is abnormal from EKG standpoint and from a dyspnea standpoint. I suspect the EKG changes are unchanged compared to what was noted on the abnormal stress test she had done in 2005. My suspicion is that these changes are secondary to mild left ventricular hypertrophy with ST segment changes secondary to diastolic dysfunction. In fact majority of her symptoms may be secondary to diastolic dysfunction due to poorly controlled blood pressure. Her pressure in the office today is high on multiple times checked. I started her on 2.5 mg of amlodipine and she stay on lisinopril hydrochlorothiazide. I am sending her for repeat stress echocardiogram. Send her for 48-hour Holter monitor to assess for arrhythmia. Palpitation 01/07/2024 Last Assessment & Plan: May be secondary to poorly controlled blood pressure Burn 10/06/2019 Last Assessment & Plan: Explained appears to be healing, based on her history that it is getting smaller and less inflamed. She should continue urgent care instructions and schedule follow up with PCP. Elevated BP without diagnosis of hyperte nsion 10/06/2019 Last Assessment & Plan: Patient with significant hypertension.I think this patient suffers from hypertension and diastolic dysfunction. In the past she has had poorly controlled blood pressures. I am adding 2.5 mg of amlodipine I warned about lightheadedness and dizziness but I really think that the majority of her symptoms are brought on by diastolic dysfunction. We can repeat the stress test using stress echocardiography but again my suspicion is that this is diastolic dysfunction playing a part in her symptoms Hyperlipidemia 01/09/2019 Bursitis of right hip 11/14/2017 Perioral Dermatitis/ cheilitis/ PATCH TE STING BY ALLERGY ALL NEGATIVE 04/02/2017 Hypertension 04/02/2017 Last Assessment & Plan: Patient is hypertensive at today's appointment at 140/90. She reports this is consistent with readings at home and at her other medical appointments. She is currently utilizing 2.5 mg amlodipine p.o. as well as the combination losartan 50 mg/hydrochlorothiazide 12.5 mg p.o. daily. Patient will have amlodipine titrated up to 5 mg p.o. daily. She will be asked to continue to take blood pressure measurements at home. She has been educated on the common side effects of these medications. Patient has an appointment with her primary care provider next month at which point her blood pressure will be monitored again. If necessary would recommend increasing amlodipine to 10 mg daily if her blood pressure remains elevated. OSTEOPOROSIS 09/06/2006 Resolved Problems Problem Noted Date Resolved Date Elevated lipoprotein(a) 01/09/2019 01/10/20 19 Overweight 11/15/2015 04/13/2017 Chest pain, unspecified 05/15/2007 04/02/20 17 Overview: ETT (-) 2005 Immunizations Name Administration Dates Next Due TD (STATE SUPPLIED FOR ADULTS AND CHILDREN) 12/10 Tdap 05/15/2007 Family History Medical History Relation Name Comments Cancer of the Colon Father Cancer, Other Father [place] Father at age 75 Multiple Myeloma Mother 75 neg breast Other 1 neg ovarian Other 2 No Known Problems Sister Rajani CA Breast Negative Hx CA Ovarian Negative Hx Cancer of the Pancreas Negative Hx Cancer of the Prostate Negative Hx Uterine Cancer Negative Hx Relation Name Status Comments Father (Age 75) Mother (Age 75) Other 1 Other 2 Sister Rajani Alive Social History Tobacco Use Types Packs/Day Years Used Date Smoking Tobacco: Never Passive Smoke Exposure: Never Smokeless Tobacco: Never Tobacco Cessation:Counseling Given: Not Answered Alcohol Use Standard Drinks/Week Comments Yes 0 (1 standard drink = 0.6 oz pur e alcohol) red wine 3-4 times/weekly Sex Assigned at Date Recorded Not on file Job Start Date Occupation Industry Not on file Not on file Not on file Last Filed Vital Signs Vital Sign Reading Time Taken Comments Blood Pressure 140/90 05/14/2024 8:14 AM EDT Pulse 53 05/14/2024 8:14 AM EDT Temperature 36.4 ??C (97.6 ??F) 12/08/2021 8:35 AM ED T Respiratory Rate 16 12/08/2021 8:35 AM EDT Oxygen Saturation 98% 05/14/2024 8:14 AM EDT Inhaled Oxygen Concentration - - Weight 66.3 kg (146 lb 1.6 oz) 05/14/2024 8:14 A M EDT Height 152.4 cm (5') 05/14/2024 8:14 AM EDT Body Mass Index 28.53 05/14/2024 8:14 AM EDT Plan of Treatment Health Maintenance Due Date Last Done Comments Covid-19 Vaccine (#1) 05/13/1956 DEPRESSION SCREEN 1969 SHINGLES VACCINE (1 of 2) 11/11/2007 FALL RISK ASSESSMENT 2022 PNEUMOCOCCAL VACCINE (1 - PCV) 2022 BONE DENSITY SCREENING 01/10/2023 , 01/09/2018, 01/26/2016, Additional history exists MAMMOGRAM 07/30/2024 07/30/2023, 07/11, 07/21/2021, Additional history exists BMI CHECK/ADVISE 09/10/2024 07/22/2020, 10/2019, 01/09/2019, Additional history exists CHOLESTEROL SCREENING 01/06/2025 01/07/2020 , 01/02/2019, 04/02/2017, Additional history exists INFLUENZA (Season Ended) 2025 DTAP/TDAP/TD (3 - Td or Tdap) 01/02/2029 01/02/2019, 05/15/2007 COLON CANCER SCREENING 01/18/2031 , 01/18/2021, 09/17/2013, Additional history exists HEPATITIS C SCREENING Completed 07/27/2014 Care Teams Property Custodian Relationship Specialty Start Date End Date Brigette Garcia MD PCP - General Internal Medicine 07/25/22 Dale Cardenas MD [address] [place] [address] [address] [place] [address] [employer] Cardiovascular Disease 12/28/23 Joan Lynn NP [address] [place] [address] [address] [place] [address] Cardiology 05/14/24
--- OUTSIDE RECORDS SUMMARY | 2025-01-14 11:34 | XMS_ITS | Patient Health Record ---
Author Organization [employer] [facility] Address [address] [facility] [place] [address] Care Team Providers Care Improvement Intern Name Role Phone PATRICIA GARCIA Unavailable [phone] YOBANY SIMMS Unavailable [phone] LAUREANO HAGAN Unavailable [phone] ALLERGIES Allergen (clinical drug ingredient) Drug/Non Drug Allergy documented on EMR Reaction Allergy Type Onset Date Status meperidine Demerol Unknown Drug Allergy Active doxycycline Doxycycline Unknown Drug Allergy Act rob RESULTS Component Value Reference Range Notes Tristan Dexa Axial Skeleton Reviewed date:02/12/2024 10:49:46 AM Interpretation: Performing Lab: Notes/Report: Original Ordering Provider: PATRICIA GARCIA MD [facility] LIPID PANEL, STANDARD Reviewed date:03/27/2024 08:07:17 AM Interpretation: Performing Lab:NL2, [facility] [address] [place], [place] [address] Annita Cunningham Notes/Report: FASTING:YES FASTING: YES CHOLESTEROL, TOTAL 208 <200 mg/dL HDL CHOLESTEROL 74 > OR = 50 mg/dL TRIGLYCERIDES 98 <150 mg/dL LDL-CHOLESTEROL 114 Reference range: <100 Desirable range <100 mg/dL for primary prevention; <70 mg/dL for patients with CHD or diabetic patients with > or = 2 CHD risk factors. LDL-C is now calculated using the Tamiko calculation, which is a validated novel method providing better accuracy than the Friedewald equation in the estimation of LDL-C. Klaus BAKER et al. PEG. 2013;310(19): 1189-2929 (http://education.[employer].com/f aq/RQM329) CHOL/HDLC RATIO 2.8 <5.0 (calc) NON HDL CHOLESTEROL 134 <130 mg/dL (calc) For patients with diabetes plus 1 major ASCVD risk factor, treating to a non-HDL-C goal of <100 mg/dL (LDL-C of <70 mg/dL) is considered a therapeutic option. COMPREHENSIVE METABOLIC PANE L Reviewed date:03/27/2024 08:07:11 AM Interpretation: Performing Lab:2, [facility] [address] Annita Cunningham Notes/Report: FASTING:YES FASTING: YES GLUCOSE 88 65-99 mg/dL Fasting reference interval UREA NITROGEN (BUN) 13 7-25 mg/dL CREATININE 0.57 0.50-1.05 mg/dL EGFR 100 > OR = 60 mL/min/1.73m2 BUN/CREATININE RATIO SEE NOTE: 6-22 (calc) Not Reported: BUN and Creatinine are within reference range. SODIUM 140 135-146 mmol/L POTASSIUM 4.1 3.5-5.3 mmol/L CHLORIDE 103 98-110 mmol/L CARBON DIOXIDE 34 20-32 mmol/L CALCIUM 9.4 8.6-10.4 mg/dL PROTEIN, TOTAL 6.6 6.1-8.1 g/dL ALBUMIN 4.2 3.6-5.1 g/dL GLOBULIN 2.4 1.9-3.7 g/dL (calc) ALBUMIN/GLOBULIN RATIO 1.8 1.0-2.5 (calc) BILIRUBIN, TOTAL 0.5 0.2-1.2 mg/dL ALKALINE PHOSPHATASE 50 37-153 U/L AST 19 10-35 U/L ALT 23 6-29 U/L CBC (INCLUDES DIFF/PLT) Reviewed date:03/27/2024 08:06:54 AM Interpretation: Performing Lab:NL2, [facility] [address] Annita Cunningham Notes/Report: FASTING:YES FASTING: YES WHITE BLOOD CELL COUNT 4.7 3.8-10.8 Thousand/uL RED BLOOD CELL COUNT 4.92 3.80-5.10 Million/uL HEMOGLOBIN 14.1 11.7-15.5 g/dL HEMATOCRIT 44.6 35.0-45.0 % MCV 90.7 80.0-100.0 fL MCH 28.7 27.0-33.0 pg MCHC 31.6 32.0-36.0 g/dL RDW 13.3 11.0-15.0 % PLATELET COUNT 255 140-400 Thousand/uL MPV 9.4 7.5-12.5 fL ABSOLUTE NEUTROPHILS [phone] cells/uL ABSOLUTE LYMPHOCYTES 7008 034-7607 cells/uL ABSOLUTE MONOCYTES 277 200-950 cells/uL ABSOLUTE EOSINOPHILS 80 15-500 cells/uL ABSOLUTE BASOPHILS 38 0-200 cells/uL NEUTROPHILS 60.9 LYMPHOCYTES 30.7 MONOCYTES 5.9 EOSINOPHILS 1.7 BASOPHILS 0.8 URINALYSIS, COMPLETE Reviewed date:03/27/2024 08:07:02 AM Interpretation: Performing Lab:NL2, [facility] [id number] [place], [place] [address] Annita Cunningham Notes/Report: FASTING:YES FASTING: YES COLOR YELLOW YELLOW APPEARANCE CLEAR CLEAR SPECIFIC GRAVITY 1.010 1.001-1.035 PH 7.5 5.0-8.0 GLUCOSE NEGATIVE NEGATIVE BILIRUBIN NEGATIVE NEGATIVE KETONES NEGATIVE NEGATIVE OCCULT BLOOD NEGATIVE NEGATIVE PROTEIN NEGATIVE NEGATIVE NITRITE NEGATIVE NEGATIVE LEUKOCYTE ESTERASE TRACE NEGATIVE WBC NONE SEEN < OR = 5 /HPF RBC NONE SEEN < OR = 2 /HPF SQUAMOUS EPITHELIAL CELLS NONE SEEN < OR = 5 /HPF BACTERIA NONE SEEN NONE SEEN /HPF HYALINE CAST NONE SEEN NONE SEEN /LPF NOTE This urine was analyzed for the presence of WBC, RBC, bacteria, casts, and other formed elements. Only those elements seen were reported. D-DIMER Reviewed date:07/29/2024 08:16:15 AM Interpretation: Performing Lab: Notes/Report: D-Dimer <230 ng/mL (D-Dimer units) is the threshold for exclusion of DVT/PE. D-Dimer may be elevated in: Critically ill, severely infected, trauma patients, DIC, acute CVA, acute VA, unstable angina, AF, old age, , and smoking. D-Dimer may be decreased with: Initiation of heparin therapy and oral anticoagulants. D-Dimer, Quant (D-DU) <150 <=230 ng/mL DDU MG MAMMO DIGITAL SCREENING W KAREY QUEZADA Reviewed date:08/13/2024 03:00:15 PM Interpretation: Performing Lab: Notes/Report: Note See Note [facility], a member of [employer] Patient Name: IZZY HALE Date of : 1955 Reason for Exam: Breast cancer screen, avg risk, asymptomatic (Age => 42y) Exam Date: 08/11/2024 [id number] EST Report Status: Final Ordering Provider: PATRICIA GARCIA PCP: PATRICIA GARCIA EXAM: MG MAMMO DIGIT AL SCREENING W KAREY QUEZADA EXAM DATE: 08/11/2024 8:03 AM HISTORY: Breast canc er screen, avg risk, asymptomatic (Age => 42y) COMPARISON: Mammogra ms dating back to 05/25/2020 with most recent of 07/30/2023. TECHNIQUE: Bilateral digital breast tomosynthesis was performed in the CC and MLO projections. Computer aided detection with ralali 3D 3.1 was employed. TISSUE DENSITY: b. T here are scattered areas of fibroglandular density. FINDINGS: No suspicious masses , grouped microcalcifications, or areas of architectural distortion are seen. The skin and vascularity are unremarkable. IMPRESSION: Stable mammographic appearance of the breasts. No evidence of malignancy is seen. A negative mammogram in the presence of a clinically suspicious palpable abnormality does not preclude the possibility of malignancy or alter the indications for biopsy. BI-RADS: Category 1: Negative RECOMMENDATION(S): 1: Routine screening mammogram BILATERAL in 1 year. Mammo Location: [facility] Radiology Department, [address] [place] [address], [address], . -------- FINAL REPOR T -------- Dictated By: Monique Nunez Dictated Date: 08/11 15:10 ET Assigned Physician: Monique Nunez Reviewed and Electronically Signed By: Monique Nunez Signed Date: 024 15:12 ET Workstation ID: [id number] Transcribed By: Self Edit Transcribed Date: 08/11/2024 15:10 ET XR ESOPHAGRAM Reviewed date:10/02/2024 07:57:32 AM Interpretation: Performing Lab: Notes/Report: Note See Note [facility], a member of [employer] Patient Name: IZZY HALE Date of : 1955 Reason for Exam: R09.[id number] Exam Date: 10/01/2024 [id number] EST Report Status: Final Ordering Provider: LAUREANO HAGAN PCP: PATRICIA GARCIA FINDINGS: Double con trast esophagram performed. COMPARISON: None HISTORY: Pt complain s of constant need to clear throat, globus sensation, SOB x ~ 1 year, increased frequency of symptoms, rare heartburn- TUMS relieves symptoms, stable wgt, no previous surgery. Medical Representative radiographs: Frontal view of the chest. Lateral view of the neck Technique: Medical Representative radiographs: Frontal view of the chest. Lateral view of the neck Gas-forming crystals were administered orally. High density and low density barium administered orally under fluoroscopic control. The patient was exam ined upright and recumbent. Simple provocative maneuvers were performed to assess for the presence of gastroesophageal reflux. A 12.5 mm barium tab let was administered. Findings: Medical Representative: CHEST: No mediastina l or hilar mass. Lung volumes are large. No consolidation or major zone of atelectasis. Mild convex right scoliosis. Biapical thickening likely postinflammatory. Chondroid lesion in the proximal left humerus could be enchondroma or bone infarct. Lateral view of the neck: Mild anterolisthesis of C4 relative to C5. The airway is patent. No prevertebral soft tissue swelling. Pharyngoesophagram: Rapid sequence imaging of the hypopharynx during swallowing demonstrates prompt initiation of swallowing. There is normal soft palate elevation and normal epiglottic motion. There is no laryngeal penetration or ivan aspiration. There is no residual in the vallecula nor in the piriform sinuses. Thoracic esophagus: Normal distensibility and mucosal pattern without evidence of ulceration, stricture or mass formation. Hiatal hernia: A sma ll reducible sliding type hiatal hernia was present. Reflux: There was mi ld GE reflux demonstrated while rolling on the table. 12.5 mm Barium pill: Swallowed without difficulty. Prompt passage of pill from the esophagus into the stomach. DAP: 431.9 mGym^2 IMPRESSION: Small hiatal hernia. Mild GE reflux. No mass or ulcer. -------- FINAL REPOR T -------- Dictated By: John Alex Dictated Date: 10/01 10:41 ET Assigned Physician: John Burgess Reviewed and Electronically Signed By: John Burgess Signed Date: 025 10:47 ET Workstation ID: [id number] Transcribed By: Self Edit Transcribed Date: 10/01/2024 10:41 ET Urinalysis, Complete-[id number] Reviewed date:10/05/2024 07:16:40 PM Interpretation: Performing Lab:[facility], [address] [place] [address], Phone - [phone], Director - [place] Notes/Report: Specific Atwood 1.009 1.005-1.030 pH 7.5 5.0-7.5 Urine-Color Yellow Yellow Appearance Clear Clear WBC Esterase Trace Negative Protein Negative Negative/Trace Glucose Negative Negative Ketones Negative Negative Occult Blood Negative Negative Bilirubin Negative Negative Urobilinogen,Semi-Qn 0.2 0.2-1.0 mg/dL Nitrite, Urine Negative Negative Microscopic Examination See below: Microscopic was indicated and was performed. Microscopic Examination WBC None seen 0 - 5 /hpf RBC None seen 0 - 2 /hpf Epithelial Cells (non renal) None seen 0 - 10 /hpf Epithelial Cells (renal) Casts None seen None seen /lpf Cast Type Crystals Crystal Type Mucus Threads Bacteria None seen None seen/Few Yeast Trichomonas Comment CBC With Differential/Platel et-[id number] Reviewed date:10/05/2024 07:09:56 PM Interpretation: Performing Lab:[facility], [address] [place] [address], Phone - [phone], Director - [place] Notes/Report: WBC 4.3 3.4-10.8 x10E3/uL RBC 5.02 3.77-5.28 x10E6/uL Hemoglobin 14.3 11.1-15.9 g/dL Hematocrit 43.2 34.0-46.6 % MCV 86 79-97 fL MCH 28.5 26.6-33.0 pg MCHC 33.1 31.5-35.7 g/dL RDW 12.4 11.7-15.4 % Platelets 224 150-450 x10E3/uL Neutrophils 55 Not Estab. % Lymphs 34 Not Estab. % Monocytes 8 Not Estab. % Eos 2 Not Estab. % Basos 1 Not Estab. % Immature Cells Neutrophils (Absolute) 2.4 1.4-7.0 x10E3/uL Lymphs (Absolute) 1.4 0.7-3.1 x10E3/uL Monocytes(Absolute) 0.3 0.1-0.9 x10E3/uL Eos (Absolute) 0.1 0.0-0.4 x10E3/uL Baso (Absolute) 0.0 0.0-0.2 x10E3/uL Immature Granulocytes 0 Not Estab. % Immature Grans (Abs) 0.0 0.0-0.1 x10E3/uL NRBC Hematology Comments: Lipid Panel-[id number] Reviewed date:10/05/2024 07:09:56 PM Interpretation: Performing Lab:[facility], [facility], Phone - [phone], Director - MDJodry Notes/Report: Cholesterol, Total 176 100-199 mg/dL Triglycerides 54 0-149 mg/dL HDL Cholesterol 73 >39 mg/dL VLDL Cholesterol Maicol 11 5-40 mg/dL LDL Chol Calc (NIH) 92 0-99 mg/dL LDL Calc Comment: Comp. Metabolic Panel (14)-3 [id number] Reviewed date:10/05/2024 07:16:50 PM Interpretation: Performing Lab:[facility], [facility], [place], Phone - [phone], Director - MDJodry Notes/Report: Glucose 95 70-99 mg/dL BUN 16 8-27 mg/dL Creatinine 0.66 0.57-1.00 mg/dL eGFR 97 >59 mL/min/1.73 BUN/Creatinine Ratio 24 12-28 Sodium 141 134-144 mmol/L Potassium 4.4 3.5-5.2 mmol/L Chloride 103 96-106 mmol/L Carbon Dioxide, Total 26 20-29 mmol/L Calcium 9.4 8.7-10.3 mg/dL Protein, Total 6.3 6.0-8.5 g/dL Albumin 4.4 3.9-4.9 g/dL Globulin, Total 1.9 1.5-4.5 g/dL Bilirubin, Total 0.5 0.0-1.2 mg/dL Alkaline Phosphatase 43 44-121 IU/L AST (SGOT) 19 0-40 IU/L ALT (SGPT) 17 0-32 IU/L REASON FOR REFERRAL Reason please evaluate. Diagnosis 1 Shortness of breath (R06.02) Referral Organization [facility] Referring Provider First Name LAUREANO Referring Provider Last Name BENTLEY Referring Provider Speciality Internal M edicine Referred Provider Specialty Pulmonology Clinical Notes Arabella Will 04/2024 09:47:09 AM > faxed pt info to dr. Jordan's office. p) [phone] f) [phone], Octavio Tee 08/21/2024 01:42:25 PM > refaxed, Octavio Tee 11/24/2024 02:36:18 PM > refaxed to [phone] Referral Priority Routine MEDICATIONS Medication SIG (Take, Route, Frequency, Duration) Notes Start Date End Date Status Prolia 60 MG/ML 60 mg Subcutaneous e very 6 months for 1 days 06/03/2024 Active Azithromycin 250 MG two tablets day 1, o ne tablet day 2-5 Orally daily for 5 days 01/08/2025 Active Losartan Potassium-HCTZ 50-12.5 MG TAKE 1 TABLET BY MOUTH EVERY DAY FOR 90 DAYS for 90 Active Calcium Active Multivitamin Active Aspir-Low Active amLODIPine Besylate 2.5 MG 1 tablet Oral ly Once a day for 90 days Active Lpueeqve-Foopwpdat-Myqfwki h 3.5-01814-3.1 1 application into the lower eyelid of affected eye Ophthalmic Three times a day for 7 days 01/08/2025 Active IMMUNIZATIONS Vaccine Route Administration Date Status Comme nts SHINGRIX SC Subcutaneous 06/06/2022 Administered SHINGRIX IM Intramuscular 10/19/2022 Administered PROBLEMS Problem Type ICD Code Onset Dates Problem Status W/U Status Risk SNOMED Code Notes Problem Vitamin D deficiency, unspecified (E55.9) Active confirmed 67182784 Problem Age-related osteoporosis without current pathological fracture (M81.0) Active confirmed 46908665 Problem Shortness of breath (R06.02) Active confirmed Shortness of breath (006825366) Problem Encounter for screening for diabetes mellitus (Z13.1) Active confirmed 441181116 Problem Type 2 diabetes mellitus without complications (E11.9) Active confirmed Type II diabete s mellitus without complication (088863334) Problem Essential hypertension (I10) Active confirmed 00486217 Problem Hyperlipidemia, unspecified hyperlipidemia type (E78.5) Active confirmed 76868113 Problem Annual physical exam (Z00.00) Active confirmed 308021581 Problem Seasonal allergies (J30.2) Active confirmed Seasonal a llergy (368230581) Problem Vitamin D deficiency (E55.9) Active confirmed Vitamin D deficiency (52789154) Problem Osteoporosis without current pathological fracture, unspecified osteoporosis type (M81.0) Active confirmed 20912830 Problem Clavicle pain (M89.8X1) Active confirmed Clavicle pain (773196824) Problem Platelets decreased (D69.6) Active confirmed Thrombocyt openic disorder (746714636) Problem Mass of lower extremity, unspecified laterality (R22.40) Active confirmed Problem Elevated lipids (E78.5) Active confirmed Elevated fastin g lipid profile (167977587685) Problem Lipid screening (Z13.220) Active confirmed 684565328 Problem Osteoporosis (M81.0) Active confirmed Osteoporosis (47057202) Problem GERD (gastroesophageal reflux disease) (K21.9) Active confirmed Gastroesophagea l reflux disease (941587167) Problem Knee pain (M25.569) Active confirmed Knee pain (7925977241) Problem Osteoarthritis (M19.90) Active confirmed Osteoarthritis (456022646) Problem Globus sensation (R09.A2) Active confirmed Globus sensatio n (475312549) VITAL SIGNS Heart Rate 76 /min 01/08/2025 Oximetry 97 % 01/08/2025 Blood pressure diastolic 84 mm Hg 01/08/2025 Height 60 in 01/08/2025 Blood pressure systolic 134 mm Hg 01/08/2025 Weight 148.5 lbs 01/08/2025 BMI 29 kg/m2 01/08/2025 Encounters Encounter Location Date Provider Diagnosis [facility] [address] [place] [address] 07/09/2024 TALAL GARCIA Pernicious anemia D51.0 [facility] [address] [place] [address] 08/15/2024 LAUREANO HAGAN [facility] [address] [place] [address] 10/07/2024 YOBANY SIMMS [facility] [address] [place] [address] 04/02/2024 YOBANY SIMMS Hypertension, unspecified type I10 ; Wellness examination Z00.00 ; Osteoporosis without current pathological fracture, unspecified osteoporosis type M81.0 ; Elevated lipids E78.5 ; Shortness of breath R06.02 ; Encounter for screening for depression Z13.31 ; Encounter for screening for other disorder Z13.89 and Other specified counseling Z71.89 [facility] [address] [place] [address] 07/15/2024 LAUREANO BENTLEY Knee pain M25.569 ; Clavicle pain M89.8X1 ; Globus sensation R09.A2 and Essential hypertension I10 [facility] [address] [place] [address] 10/09/2024 YOBANY SIMMS Hypertension, unspecified type I10 ; Osteoporosis without current pathological fracture, unspecified osteoporosis type M81.0 ; Elevated lipids E78.5 ; Shortness of breath R06.02 ; Seasonal allergies J30.2 and Vitamin D deficiency E55.9 [facility] [address] [place] [address] 01/08/2025 YOBANY SIMMS Elevated lipids E78. 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 and Hordeolum externum of right upper eyelid H00.011 [address] [place] [address] 02/18/2024 PATRICIA GARCIA [facility] [address] [place] [address] 04/23/2024 PATRICIA GARCIA [facility] [address] [place] [address] 06/03/2024 TALVIKI GARCIA [facility] [address] [place] [address] 06/18/2024 TALVIKI GARCIA [facility] [address] [place] [address] 06/27/[address] [place] [address] 06/30/2024 YOBANY SIMMS [address] [place] [address] 07/22/[address] [place] [address] 08/14/[address] [place] [address] 10/06/2024 YOBANY SIMMS [facility] [address] [facility] [place] [address] 10/09/2024 PATRICIA GARCIA [facility] [address] [place] [address] 11/20/2024 PATRICIA GARCIA [facility] [address] [place] [address] 11/20/2024 YOBANY SIMMS Osteoporosis without current pathological fracture, unspecified osteoporosis type M81.0 [address] [place] [address] 12/24/2024 YOBANY SIMMS [address] [place] [address] 01/07/2025 PATRICIA GARCIA ASSESSMENTS Encounter Date Diagnosis Assessment Notes Treatment Notes Treatment Clinical Notes Section Notes 04/02/2024 Hypertension, unspecified type (ICD-10 - I10) Patient up-to-date on all routine screening and vaccines. Healthcare proxy is her Fran. # Chest palpitations: EKG showing bradycardia at Previous visit, but otherwise without concern. Ordered exercise stress test which was positive during the test, so she is following with cardiology Dr. Cardenas. Having repeat echo, was put on a monitor, Taking amlodipine 2.5 mg. Blood pressure stable. Follow with cardiology in May. # Osteoporosis: Decrease in bone density 5 4% since 2022. Patient has tried Fosamax, which she got jaw pain so she discontinued. Also trialed Evista, which she did not tolerate well. Discussed Prolia, but she is not interested at this time. States she will take vitamin D/calcium, and think about it for her next visit in 6 months. Is aware of the risk factors of untreated osteoporosis. #Hypertension: BP today in office is stable. Continue with hydrochlorothiazide, losartan, and amlodipine. #Multivitamin: Patient should continue taking for an added benefit of nutrition #Vitamin D3: Patient should continue taking supplement for her Osteoporosis # Hyperlipidemia: Total cholesterol 208. Discussed lifestyle # Patient with shortness of breath, following with cardiology to rule out cardiac etiology, they think it is related to her blood pressure, questioning also pulmonary anterolaterally. Carbon dioxide 34. Will start with chest x-ray due to shortness of breath but may need pulmonary function testing. Patient to follow-up in 6 months for repeat blood work, chest x-ray in the meantime. Follow-up with cardiology in the meantime. Patient seen and examined. Comprehensive discussion was done on the following. 1. Nutrition: It is important to follow a healthy diet based on lots of vegetables and legumes and good fat. Avoid processed food and processed carbohydrates. Prepare your own meals. Read labels and avoid high fructose corn syrup, processed chemicals added to increase shelf life and preprepared meals. Avoid fast foods. Eat slowly and plan meals for a week. Try to count calories and be mindful off daily calorie intake. Get into the habit of keeping an eye on your weight by using an appropriate scale. Learn to log exercise and discussed fitness Apps like [employer] which can help keep log off calories taken versus calories burned. Local food should be preferred. Discussed Dirty Dozen Versus Clean Fifteen. Discussed healthy supplements like fish oil, Tumeric, Curcumin, Melatonin, Resveratrol, Probiotics, Vitamin-D, Alpha-Lipoic acid, Vitamin-D and coconut oil. 2. It is important to exercise regularly. Is a good habit to walk at least 30 minutes a day. Gentle weightlifting with standard precautions to protect the back. Finding activity like cycling or hiking and get into the habit of engaging in it. Stretching before and after the exercises important. It is also important to contact me if there are any problems like shortness of breath, chest pain, back pain and joint or muscle pain associated with the exercise. 3. Discussed age appropriate screening guidelines. Colonoscopy needs to start at age 50 with stool for occult blood as appropriate. There is a new test that can test for genetic abnormalities in the stool sample, Cologuard. This would not replace a colonoscopy but could be used as a screening tool for patients who do not want a colonoscopy. We discussed the importance of early detection of colon cancer. 4. Discussed current guidelines with respect to breast examination, mammogram and pap smear for early detection of breast and cervical cancer. Patient advised to follow up with these appointments. 5. Discussed safe driving and no use of smart phone while driving 6. Age-appropriate immunizations were discussed. A tetanus booster is needed every 10 years. Flu vaccine is recommended every year just before the start of the flu season. Shingles vaccine is recommended after age 50 but not all insurances cover it. Pneumonia vaccine is given after age 65 unless there are certain comorbidities for which it is started earlier. 7. Diagnostic labs were discussed. These could include/not limited to CBC CMP and lipids with fasting blood glucose and insulin levels. Vitamin D and hemoglobin A1c testing might be appropriate. All quetsions answered to patients satisfaction. Patient verbalized understanding of diagnosis and treatments explained. To call sooner prior to next visit it any questions/concerns arise. Case discussed with collaborating physician Sukhi Garcia who reviewed the assessment and plan. Chart, medications, labs, vital signs reviewed. Dictation was accomplished with the use of [employer] voice recognition software, prone to medical misidentifications and grammatical errors. This is unintentional and the practitioner does try to identify and correct these, but some could still be present. Please do not hesitate to contact practitioner for clarification. 04/02/2024 Wellness examination (ICD-10 - Z00.00) Patient up-to-date on all routine screening and vaccines. Healthcare proxy is her Fran. # Chest palpitations: EKG showing bradycardia at Previous visit, but otherwise without concern. Ordered exercise stress test which was positive during the test, so she is following with cardiology Dr. Cardenas. Having repeat echo, was put on a monitor, Taking amlodipine 2.5 mg. Blood pressure stable. Follow with cardiology in May. # Osteoporosis: Decrease in bone density 5 4% since 2022. Patient has tried Fosamax, which she got jaw pain so she discontinued. Also trialed Evista, which she did not tolerate well. Discussed Prolia, but she is not interested at this time. States she will take vitamin D/calcium, and think about it for her next visit in 6 months. Is aware of the risk factors of untreated osteoporosis. #Hypertension: BP today in office is stable. Continue with hydrochlorothiazide, losartan, and amlodipine. #Multivitamin: Patient should continue taking for an added benefit of nutrition #Vitamin D3: Patient should continue taking supplement for her Osteoporosis # Hyperlipidemia: Total cholesterol 208. Discussed lifestyle # Patient with shortness of breath, following with cardiology to rule out cardiac etiology, they think it is related to her blood pressure, questioning also pulmonary anterolaterally. Carbon dioxide 34. Will start with chest x-ray due to shortness of breath but may need pulmonary function testing. Patient to follow-up in 6 months for repeat blood work, chest x-ray in the meantime. Follow-up with cardiology in the meantime. Patient seen and examined. Comprehensive discussion was done on the following. 1. Nutrition: It is important to follow a healthy diet based on lots of vegetables and legumes and good fat. Avoid processed food and processed carbohydrates. Prepare your own meals. Read labels and avoid high fructose corn syrup, processed chemicals added to increase shelf life and preprepared meals. Avoid fast foods. Eat slowly and plan meals for a week. Try to count calories and be mindful off daily calorie intake. Get into the habit of keeping an eye on your weight by using an appropriate scale. Learn to log exercise and discussed fitness Apps like [employer] which can help keep log off calories taken versus calories burned. Local food should be preferred. Discussed D[employer] Vers[employer] Fifteen. Discussed healthy supplements like fish oil, Tumeric, Curcumin, Melatonin, Resveratrol, Probiotics, Vitamin-D, Alpha-Lipoic acid, Vitamin-D and coconut oil. 2. It is important to exercise regularly. Is a good habit to walk at least 30 minutes a day. Gentle weightlifting with standard precautions to protect the back. Finding activity like cycling or hiking and get into the habit of engaging in it. Stretching before and after the exercises important. It is also important to contact me if there are any problems like shortness of breath, chest pain, back pain and joint or muscle pain associated with the exercise. 3. Discussed age appropriate screening guidelines. Colonoscopy needs to start at age 50 with stool for occult blood as appropriate. There is a new test that can test for genetic abnormalities in the stool sample, Cologuard. This would not replace a colonoscopy but could be used as a screening tool for patients who do not want a colonoscopy. We discussed the importance of early detection of colon cancer. 4. Discussed current guidelines with respect to breast examination, mammogram and pap smear for early detection of breast and cervical cancer. Patient advised to follow up with these appointments. 5. Discussed safe driving and no use of smart phone while driving 6. Age-appropriate immunizations were discussed. A tetanus booster is needed every 10 years. Flu vaccine is recommended every year just before the start of the flu season. Shingles vaccine is recommended after age 50 but not all insurances cover it. Pneumonia vaccine is given after age 65 unless there are certain comorbidities for which it is started earlier. 7. Diagnostic labs were discussed. These could include/not limited to CBC CMP and lipids with fasting blood glucose and insulin levels. Vitamin D and hemoglobin A1c testing might be appropriate. All quetsions answered to patients satisfaction. Patient verbalized understanding of diagnosis and treatments explained. To call sooner prior to next visit it any questions/concerns arise. Case discussed with collaborating physician Sukhi Garcia who reviewed the assessment and plan. Chart, medications, labs, vital signs reviewed. Dictation was accomplished with the use of [employer] voice recognition software, prone to medical misidentifications and grammatical errors. This is unintentional and the practitioner does try to identify and correct these, but some could still be present. Please do not hesitate to contact practitioner for clarification. 07/15/2024 Clavicle pain (ICD-10 - M89.8X1) Izzy is a pleasant 68-year-old female who presents today for multitude of concerns. #Elevated blood pressure readin/80, patient states that her blood pressure normally does not run this high, checks it at home we will continue to monitor #Right knee pain: States that she experiences a occasional sharp pain behind her right knee, states that this knee has been bothersome, follows with [facility]. Sustained a cortisone injection back in January, intermittently becomes swollen she utilizes icing and Aleve to alleviate the swelling. Ordered a behind the right knee ultrasound today to rule out a Quinones's cyst. Consider obtaining an MRI if imaging is normal. Additionally ordered a right knee x-ray to ensure there are no bony abnormalities. #Shortness of breath: Patient was seen on 05/18/2024, she underwent a stress echo that revealed normal resting echo with preserved ejection fraction and no regional wall motion abnormalities. Additionally in January 2024 she underwent 48-hour Holter monitoring that revealed predominant sinus rhythm. Additionally she had a EKG conducted, and was ordered a sleep study. Will refer to pulmonology, as the patient may benefit from pulmonary function testing. #Right clavicular discomfort: Patient states that her clavicle is growing into her trachea, upon physical exam there are no abnormalities between her right and left clavicular bones. Bilateral clavicular x-ray ordered today. #Globus sensation: Barium swallow ordered today All questions have been answered to patient's satisfaction. Patient verbalized understanding of diagnosis and treatments explained. Advised to call sooner prior to next visit it any questions/concerns arise. Case discussed with Sukhi FRANK who reviewed the assessment and plan. Chart, medications, labs, vital signs reviewed. Dictation was accomplished with the use of [employer] voice recognition software, which is prone to medical misidentifications and grammatical errors. This are unintentional and the practitioner does try to identify and correct these, but some could still be present. Please do not hesitate to contact practitioner for clarification. 07/15/2024 Knee pain (ICD-10 - M25.569) Izzy is a pleasant 68-year-old female who presents today for multitude of concerns. #Elevated blood pressure readin/80, patient states that her blood pressure normally does not run this high, checks it at home we will continue to monitor #Right knee pain: States that she experiences a occasional sharp pain behind her right knee, states that this knee has been bothersome, follows with [facility]. Sustained a cortisone injection back in January, intermittently becomes swollen she utilizes icing and Aleve to alleviate the swelling. Ordered a behind the right knee ultrasound today to rule out a Quinones's cyst. Consider obtaining an MRI if imaging is normal. Additionally ordered a right knee x-ray to ensure there are no bony abnormalities. #Shortness of breath: Patient was seen on 05/18/2024, she underwent a stress echo that revealed normal resting echo with preserved ejection fraction and no regional wall motion abnormalities. Additionally in January 2024 she underwent 48-hour Holter monitoring that revealed predominant sinus rhythm. Additionally she had a EKG conducted, and was ordered a sleep study. Will refer to pulmonology, as the patient may benefit from pulmonary function testing. #Right clavicular discomfort: Patient states that her clavicle is growing into her trachea, upon physical exam there are no abnormalities between her right and left clavicular bones. Bilateral clavicular x-ray ordered today. #Globus sensation: Barium swallow ordered today All questions have been answered to patient's satisfaction. Patient verbalized understanding of diagnosis and treatments explained. Advised to call sooner prior to next visit it any questions/concerns arise. Case discussed with Sukhi FRANK who reviewed the assessment and plan. Chart, medications, labs, vital signs reviewed. Dictation was accomplished with the use of [employer] voice recognition software, which is prone to medical misidentifications and grammatical errors. This are unintentional and the practitioner does try to identify and correct these, but some could still be present. Please do not hesitate to contact practitioner for clarification. 07/09/2024 Pernicious anemia (ICD-10 - D51.0) 10/09/2024 Hypertension, unspecified type (ICD-10 - I10) # Chest palpitations: EKG showing bradycardia at Previous visit, but otherwise without concern. Ordered exercise stress test which was positive during the test, so she is following with cardiology Dr. Cardenas. Having repeat echo, was put on a monitor, Taking amlodipine 2.5 mg. Blood pressure stable. Follow with cardiology November 2024. # Osteoporosis: Decrease in bone density 5 4% since 2022. Patient has tried Fosamax, which she got jaw pain so she discontinued. Also trialed Evista, which she did not tolerate well.States she will take vitamin D/calcium. Has been doing Prolia, first injection was July 10, 2024, due end of December/beginning of January for second injection. Will schedule. #Hypertension: BP today in office is stable. Continue with hydrochlorothiazide, losartan, and amlodipine. #Multivitamin: Patient should continue taking for an added benefit of nutrition #Vitamin D3: Patient should continue taking supplement for her Osteoporosis # Hyperlipidemia: Total cholesterol 208. Most recent lipid panel 10/04/2024 with resolution. Total cholesterol 176, LDL 92. Patient is pleased with progress and continuing with lifestyle changes. # Patient with shortness of breath, following with cardiology , Ruling out cardiac ideology. Also questioning pulmonary etiology. Chest x-ray was within normal limits. Sent for pulmonary function testing, results still pending. Patient scheduled for a sleep study 2024 # Patient had a barium swallow secondary to concerns for globus sensation. Barium swallow showing small hiatal hernia and acid reflux. Discussed conservative treatments. Patient states it is tolerable, no further workup needed at this time but if symptoms persist consider endoscopy. # Patient was having concerns in regards to her right clavicle, x-ray obtained which was within normal limits. No further workup needed at this time # Patient has concerns for knee pain, ultrasound ordered to rule out bursitis which was not obtained. She did get an x-ray showing osteoarthritis. Following with orthopedics in November # Patient's following with orthopedics, just had an MRI of her spine which was within normal limits for acute ideology but showing degenerative changes and disc bulge. Patient scheduled with orthopedics in November. Patient will follow-up at the end of December/ of January for Prolia injection, sooner as needed. Time spent with patient 60 minutes or greater than 50% on patient occasion and care coordination All quetsions answered to patients satisfaction. Patient verbalized understanding of diagnosis and treatments explained. To call sooner prior to next visit it any questions/concerns arise. Case discussed with collaborating physician Sukhi Garcia who reviewed the assessment and plan. Chart, medications, labs, vital signs reviewed. Dictation was accomplished with the use of [employer] voice recognition software, prone to medical misidentifications and grammatical errors. This is unintentional and the practitioner does try to identify and correct these, but some could still be present. Please do not hesitate to contact practitioner for clarification. 10/09/2024 Osteoporosis without current pathological fracture, unspecified osteoporosis type (ICD-10 - M81.0) # Chest palpitations: EKG showing bradycardia at Previous visit, but otherwise without concern. Ordered exercise stress test which was positive during the test, so she is following with cardiology Dr. Cardenas. Having repeat echo, was put on a monitor, Taking amlodipine 2.5 mg. Blood pressure stable. Follow with cardiology November 2024. # Osteoporosis: Decrease in bone density 5 4% since 2022. Patient has tried Fosamax, which she got jaw pain so she discontinued. Also trialed Evista, which she did not tolerate well.States she will take vitamin D/calcium. Has been doing Prolia, first injection was July 10, 2024, due end of December/january for second injection. Will schedule. #Hypertension: BP today in office is stable. Continue with hydrochlorothiazide, losartan, and amlodipine. #Multivitamin: Patient should continue taking for an added benefit of nutrition #Vitamin D3: Patient should continue taking supplement for her Osteoporosis # Hyperlipidemia: Total cholesterol 208. Most recent lipid panel 10/04/2024 with resolution. Total cholesterol 176, LDL 92. Patient is pleased with progress and continuing with lifestyle changes. # Patient with shortness of breath, following with cardiology , Ruling out cardiac ideology. Also questioning pulmonary etiology. Chest x-ray was within normal limits. Sent for pulmonary function testing, results still pending. Patient scheduled for a sleep study 2024 # Patient had a barium swallow secondary to concerns for globus sensation. Barium swallow showing small hiatal hernia and acid reflux. Discussed conservative treatments. Patient states it is tolerable, no further workup needed at this time but if symptoms persist consider endoscopy. # Patient was having concerns in regards to her right clavicle, x-ray obtained which was within normal limits. No further workup needed at this time # Patient has concerns for knee pain, ultrasound ordered to rule out bursitis which was not obtained. She did get an x-ray showing osteoarthritis. Following with orthopedics in November # Patient's following with orthopedics, just had an MRI of her spine which was within normal limits for acute ideology but showing degenerative changes and disc bulge. Patient scheduled with orthopedics in November. Patient will follow-up at the end of December/beginning of January for Prolia injection, sooner as needed. Time spent with patient 60 minutes or greater than 50% on patient occasion and care coordination All quetsions answered to patients satisfaction. Patient verbalized understanding of diagnosis and treatments explained. To call sooner prior to next visit it any questions/concerns arise. Case discussed with collaborating physician Sukhi Garcia who reviewed the assessment and plan. Chart, medications, labs, vital signs reviewed. Dictation was accomplished with the use of [employer] voice recognition software, prone to medical misidentifications and grammatical errors. This is unintentional and the practitioner does try to identify and correct these, but some could still be present. Please do not hesitate to contact practitioner for clarification. 11/20/2024 Osteoporosis without current pathological fracture, unspecified osteoporosis type (ICD-10 - M81.0) 01/08/2025 Age-related osteoporosis without current pathological fracture (ICD-10 - M81.0) # Stye/blepharitis of the right eye. Patient will contact energy audit advisor. Allergic to doxycycline therefore we will try azithromycin, and topical neomycin polymyxin dexamethasone ointment. Discussed proper use, and side effects. # Chest palpitations: EKG showing bradycardia at Previous visit, but otherwise without concern. Ordered exercise stress test which was positive during the test, so she is following with cardiology Dr. Cardenas. Having repeat echo, was put on a monitor, Taking amlodipine 2.5 mg. Blood pressure stable. Follow with cardiology # Osteoporosis: Decrease in bone density 5 4% since 2022. Patient has tried Fosamax, which she got jaw pain so she discontinued. Also trialed Evista, which she did not tolerate well.States she will take vitamin D/calcium. Has been doing Prolia, first injection was July 10, 2024, Second injection January 08, 2025,Will be due in July. #Hypertension: BP today in office is stable. Continue with hydrochlorothiazide, losartan, and amlodipine. #Multivitamin: Patient should continue taking for an added benefit of nutrition #Vitamin D3: Patient should continue taking supplement for her Osteoporosis # Hyperlipidemia: Total cholesterol 208. Most recent lipid panel 10/04/2024 with resolution. Total cholesterol 176, LDL 92. Patient is pleased with progress and continuing with lifestyle changes. # Patient with shortness of breath, following with cardiology , Ruling out cardiac ideology. Also questioning pulmonary etiology. Chest x-ray was within normal limits. Sent for pulmonary function testing, results still pending. Patient had sleep study on 2024. # Patient had a barium swallow secondary to concerns for globus sensation. Barium swallow showing small hiatal hernia and acid reflux. Discussed conservative treatments. Patient states it is tolerable, no further workup needed at this time but if symptoms persist consider endoscopy. # Patient was having concerns in regards to her right clavicle, x-ray obtained which was within normal limits. No further workup needed at this time # Patient has concerns for knee pain, ultrasound ordered to rule out bursitis which was not obtained. She did get an x-ray showing osteoarthritis. Following with orthopedics # Patient's following with orthopedics, just had an MRI of her spine which was within normal limits for acute ideology but showing degenerative changes and disc bulge. Patient scheduled with orthopedics in November. Follow-up in March for Medicare wellness visit with fasting labs. Sooner as needed.In the meantime. 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 Esqueda. Patient wants me to hold off on referral today. All quetsions answered to patients satisfaction. Patient verbalized understanding of diagnosis and treatments explained. To call sooner prior to next visit it any questions/concerns arise. Case discussed with collaborating physician Sukhi Garcia who reviewed the assessment and plan. Chart, medications, labs, vital signs reviewed. Dictation was accomplished with the use of [employer] voice recognition software, prone to medical misidentifications and grammatical errors. This is unintentional and the practitioner does try to identify and correct these, but some could still be present. Please do not hesitate to contact practitioner for clarification. 01/08/2025 Elevated lipids (ICD-10 - E78.5) # Stye/blepharitis of the right eye. Patient will contact energy audit advisor. Allergic to doxycycline therefore we will try azithromycin, and topical neomycin polymyxin dexamethasone ointment. Discussed proper use, and side effects. # Chest palpitations: EKG showing bradycardia at Previous visit, but otherwise without concern. Ordered exercise stress test which was positive during the test, so she is following with cardiology Dr. Cardenas. Having repeat echo, was put on a monitor, Taking amlodipine 2.5 mg. Blood pressure stable. Follow with cardiology # Osteoporosis: Decrease in bone density 5 4% since 2022. Patient has tried Fosamax, which she got jaw pain so she discontinued. Also trialed Evista, which she did not tolerate well.States she will take vitamin D/calcium. Has been doing Prolia, first injection was July 10, 2024, Second injection January 08, 2025,Will be due in July. #Hypertension: BP today in office is stable. Continue with hydrochlorothiazide, losartan, and amlodipine. #Multivitamin: Patient should continue taking for an added benefit of nutrition #Vitamin D3: Patient should continue taking supplement for her Osteoporosis # Hyperlipidemia: Total cholesterol 208. Most recent lipid panel 10/04/2024 with resolution. Total cholesterol 176, LDL 92. Patient is pleased with progress and continuing with lifestyle changes. # Patient with shortness of breath, following with cardiology , Ruling out cardiac ideology. Also questioning pulmonary etiology. Chest x-ray was within normal limits. Sent for pulmonary function testing, results still pending. Patient had sleep study on 2024. # Patient had a barium swallow secondary to concerns for globus sensation. Barium swallow showing small hiatal hernia and acid reflux. Discussed conservative treatments. Patient states it is tolerable, no further workup needed at this time but if symptoms persist consider endoscopy. # Patient was having concerns in regards to her right clavicle, x-ray obtained which was within normal limits. No further workup needed at this time # Patient has concerns for knee pain, ultrasound ordered to rule out bursitis which was not obtained. She did get an x-ray showing osteoarthritis. Following with orthopedics # Patient's following with orthopedics, just had an MRI of her spine which was within normal limits for acute ideology but showing degenerative changes and disc bulge. Patient scheduled with orthopedics in November. Follow-up in March for Medicare wellness visit with fasting labs. Sooner as needed.In the meantime. 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 Esqueda. Patient wants me to hold off on referral today. All quetsions answered to patients satisfaction. Patient verbalized understanding of diagnosis and treatments explained. To call sooner prior to next visit it any questions/concerns arise. Case discussed with collaborating physician Sukhi Garcia who reviewed the assessment and plan. Chart, medications, labs, vital signs reviewed. Dictation was accomplished with the use of [employer] voice recognition software, prone to medical misidentifications and grammatical errors. This is unintentional and the practitioner does try to identify and correct these, but some could still be present. Please do not hesitate to contact practitioner for clarification. 01/08/2025 Seasonal allergies (ICD-10 - J30.2) # Stye/blepharitis of the right eye. Patient will contact energy audit advisor. Allergic to doxycycline therefore we will try azithromycin, and topical neomycin polymyxin dexamethasone ointment. Discussed proper use, and side effects. # Chest palpitations: EKG showing bradycardia at Previous visit, but otherwise without concern. Ordered exercise stress test which was positive during the test, so she is following with cardiology Dr. Cardenas. Having repeat echo, was put on a monitor, Taking amlodipine 2.5 mg. Blood pressure stable. Follow with cardiology # Osteoporosis: Decrease in bone density 5 4% since 2022. Patient has tried Fosamax, which she got jaw pain so she discontinued. Also trialed Evista, which she did not tolerate well.States she will take vitamin D/calcium. Has been doing Prolia, first injection was July 10, 2024, Second injection January 08, 2025,Will be due in July. #Hypertension: BP today in office is stable. Continue with hydrochlorothiazide, losartan, and amlodipine. #Multivitamin: Patient should continue taking for an added benefit of nutrition #Vitamin D3: Patient should continue taking supplement for her Osteoporosis # Hyperlipidemia: Total cholesterol 208. Most recent lipid panel 10/04/2024 with resolution. Total cholesterol 176, LDL 92. Patient is pleased with progress and continuing with lifestyle changes. # Patient with shortness of breath, following with cardiology , Ruling out cardiac ideology. Also questioning pulmonary etiology. Chest x-ray was within normal limits. Sent for pulmonary function testing, results still pending. Patient had sleep study on 2024. # Patient had a barium swallow secondary to concerns for globus sensation. Barium swallow showing small hiatal hernia and acid reflux. Discussed conservative treatments. Patient states it is tolerable, no further workup needed at this time but if symptoms persist consider endoscopy. # Patient was having concerns in regards to her right clavicle, x-ray obtained which was within normal limits. No further workup needed at this time # Patient has concerns for knee pain, ultrasound ordered to rule out bursitis which was not obtained. She did get an x-ray showing osteoarthritis. Following with orthopedics # Patient's following with orthopedics, just had an MRI of her spine which was within normal limits for acute ideology but showing degenerative changes and disc bulge. Patient scheduled with orthopedics in November. Follow-up in March for Medicare wellness visit with fasting labs. Sooner as needed.In the meantime. 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 Esqueda. Patient wants me to hold off on referral today. All quetsions answered to patients satisfaction. Patient verbalized understanding of diagnosis and treatments explained. To call sooner prior to next visit it any questions/concerns arise. Case discussed with collaborating physician Sukhi Garcia who reviewed the assessment and plan. Chart, medications, labs, vital signs reviewed. Dictation was accomplished with the use of [employer] voice recognition software, prone to medical misidentifications and grammatical errors. This is unintentional and the practitioner does try to identify and correct these, but some could still be present. Please do not hesitate to contact practitioner for clarification. 10/09/2024 Elevated lipids (ICD-10 - E78.5) # Chest palpitations: EKG showing bradycardia at Previous visit, but otherwise without concern. Ordered exercise stress test which was positive during the test, so she is following with cardiology Dr. Cardenas. Having repeat echo, was put on a monitor, Taking amlodipine 2.5 mg. Blood pressure stable. Follow with cardiology November 2024. # Osteoporosis: Decrease in bone density 5 4% since 2022. Patient has tried Fosamax, which she got jaw pain so she discontinued. Also trialed Evista, which she did not tolerate well.States she will take vitamin D/calcium. Has been doing Prolia, first injection was July 10, 2024, due end of December/january for second injection. Will schedule. #Hypertension: BP today in office is stable. Continue with hydrochlorothiazide, losartan, and amlodipine. #Multivitamin: Patient should continue taking for an added benefit of nutrition #Vitamin D3: Patient should continue taking supplement for her Osteoporosis # Hyperlipidemia: Total cholesterol 208. Most recent lipid panel 10/04/2024 with resolution. Total cholesterol 176, LDL 92. Patient is pleased with progress and continuing with lifestyle changes. # Patient with shortness of breath, following with cardiology , Ruling out cardiac ideology. Also questioning pulmonary etiology. Chest x-ray was within normal limits. Sent for pulmonary function testing, results still pending. Patient scheduled for a sleep study 2024 # Patient had a barium swallow secondary to concerns for globus sensation. Barium swallow showing small hiatal hernia and acid reflux. Discussed conservative treatments. Patient states it is tolerable, no further workup needed at this time but if symptoms persist consider endoscopy. # Patient was having concerns in regards to her right clavicle, x-ray obtained which was within normal limits. No further workup needed at this time # Patient has concerns for knee pain, ultrasound ordered to rule out bursitis which was not obtained. She did get an x-ray showing osteoarthritis. Following with orthopedics in November # Patient's following with orthopedics, just had an MRI of her spine which was within normal limits for acute ideology but showing degenerative changes and disc bulge. Patient scheduled with orthopedics in November. Patient will follow-up at the end of December/january for Prolia injection, sooner as needed. Time spent with patient 60 minutes or greater than 50% on patient occasion and care coordination All quetsions answered to patients satisfaction. Patient verbalized understanding of diagnosis and treatments explained. To call sooner prior to next visit it any questions/concerns arise. Case discussed with collaborating physician Sukhi Garcia who reviewed the assessment and plan. Chart, medications, labs, vital signs reviewed. Dictation was accomplished with the use of [employer] voice recognition software, prone to medical misidentifications and grammatical errors. This is unintentional and the practitioner does try to identify and correct these, but some could still be present. Please do not hesitate to contact practitioner for clarification. 07/15/2024 Globus sensation (ICD-10 - R09.A2) Izzy is a pleasant 68-year-old female who presents today for multitude of concerns. #Elevated blood pressure readin/80, patient states that her blood pressure normally does not run this high, checks it at home we will continue to monitor #Right knee pain: States that she experiences a occasional sharp pain behind her right knee, states that this knee has been bothersome, follows with [facility]. Sustained a cortisone injection back in January, intermittently becomes swollen she utilizes icing and Aleve to alleviate the swelling. Ordered a behind the right knee ultrasound today to rule out a Quinones's cyst. Consider obtaining an MRI if imaging is normal. Additionally ordered a right knee x-ray to ensure there are no bony abnormalities. #Shortness of breath: Patient was seen on 05/18/2024, she underwent a stress echo that revealed normal resting echo with preserved ejection fraction and no regional wall motion abnormalities. Additionally in January 2024 she underwent 48-hour Holter monitoring that revealed predominant sinus rhythm. Additionally she had a EKG conducted, and was ordered a sleep study. Will refer to pulmonology, as the patient may benefit from pulmonary function testing. #Right clavicular discomfort: Patient states that her clavicle is growing into her trachea, upon physical exam there are no abnormalities between her right and left clavicular bones. Bilateral clavicular x-ray ordered today. #Globus sensation: Barium swallow ordered today All questions have been answered to patient's satisfaction. Patient verbalized understanding of diagnosis and treatments explained. Advised to call sooner prior to next visit it any questions/concerns arise. Case discussed with Sukhi FRANK who reviewed the assessment and plan. Chart, medications, labs, vital signs reviewed. Dictation was accomplished with the use of [employer] voice recognition software, which is prone to medical misidentifications and grammatical errors. This are unintentional and the practitioner does try to identify and correct these, but some could still be present. Please do not hesitate to contact practitioner for clarification. 04/02/2024 Osteoporosis without current pathological fracture, unspecified osteoporosis type (ICD-10 - M81.0) Patient up-to-date on all routine screening and vaccines. Healthcare proxy is her Fran. # Chest palpitations: EKG showing bradycardia at Previous visit, but otherwise without concern. Ordered exercise stress test which was positive during the test, so she is following with cardiology Dr. Cardenas. Having repeat echo, was put on a monitor, Taking amlodipine 2.5 mg. Blood pressure stable. Follow with cardiology in May. # Osteoporosis: Decrease in bone density 5 4% since 2022. Patient has tried Fosamax, which she got jaw pain so she discontinued. Also trialed Evista, which she did not tolerate well. Discussed Prolia, but she is not interested at this time. States she will take vitamin D/calcium, and think about it for her next visit in 6 months. Is aware of the risk factors of untreated osteoporosis. #Hypertension: BP today in office is stable. Continue with hydrochlorothiazide, losartan, and amlodipine. #Multivitamin: Patient should continue taking for an added benefit of nutrition #Vitamin D3: Patient should continue taking supplement for her Osteoporosis # Hyperlipidemia: Total cholesterol 208. Discussed lifestyle # Patient with shortness of breath, following with cardiology to rule out cardiac etiology, they think it is related to her blood pressure, questioning also pulmonary anterolaterally. Carbon dioxide 34. Will start with chest x-ray due to shortness of breath but may need pulmonary function testing. Patient to follow-up in 6 months for repeat blood work, chest x-ray in the meantime. Follow-up with cardiology in the meantime. Patient seen and examined. Comprehensive discussion was done on the following. 1. Nutrition: It is important to follow a healthy diet based on lots of vegetables and legumes and good fat. Avoid processed food and processed carbohydrates. Prepare your own meals. Read labels and avoid high fructose corn syrup, processed chemicals added to increase shelf life and preprepared meals. Avoid fast foods. Eat slowly and plan meals for a week. Try to count calories and be mindful off daily calorie intake. Get into the habit of keeping an eye on your weight by using an appropriate scale. Learn to log exercise and discussed fitness Apps like [employer] which can help keep log off calories taken versus calories burned. Local food should be preferred. Discussed Dirty Dozen Vers[employer] Clean Fifteen. Discussed healthy supplements like fish oil, Tumeric, Curcumin, Melatonin, Resveratrol, Probiotics, Vitamin-D, Alpha-Lipoic acid, Vitamin-D and coconut oil. 2. It is important to exercise regularly. Is a good habit to walk at least 30 minutes a day. Gentle weightlifting with standard precautions to protect the back. Finding activity like cycling or hiking and get into the habit of engaging in it. Stretching before and after the exercises important. It is also important to contact me if there are any problems like shortness of breath, chest pain, back pain and joint or muscle pain associated with the exercise. 3. Discussed age appropriate screening guidelines. Colonoscopy needs to start at age 50 with stool for occult blood as appropriate. There is a new test that can test for genetic abnormalities in the stool sample, Cologuard. This would not replace a colonoscopy but could be used as a screening tool for patients who do not want a colonoscopy. We discussed the importance of early detection of colon cancer. 4. Discussed current guidelines with respect to breast examination, mammogram and pap smear for early detection of breast and cervical cancer. Patient advised to follow up with these appointments. 5. Discussed safe driving and no use of smart phone while driving 6. Age-appropriate immunizations were discussed. A tetanus booster is needed every 10 years. Flu vaccine is recommended every year just before the start of the flu season. Shingles vaccine is recommended after age 50 but not all insurances cover it. Pneumonia vaccine is given after age 65 unless there are certain comorbidities for which it is started earlier. 7. Diagnostic labs were discussed. These could include/not limited to CBC CMP and lipids with fasting blood glucose and insulin levels. Vitamin D and hemoglobin A1c testing might be appropriate. All quetsions answered to patients satisfaction. Patient verbalized understanding of diagnosis and treatments explained. To call sooner prior to next visit it any questions/concerns arise. Case discussed with collaborating physician Sukhi Garcia who reviewed the assessment and plan. Chart, medications, labs, vital signs reviewed. Dictation was accomplished with the use of [employer] voice recognition software, prone to medical misidentifications and grammatical errors. This is unintentional and the practitioner does try to identify and correct these, but some could still be present. Please do not hesitate to contact practitioner for clarification. 04/02/2024 Elevated lipids (ICD-10 - E78.5) Patient up-to-date on all routine screening and vaccines. Healthcare proxy is her Fran. # Chest palpitations: EKG showing bradycardia at Previous visit, but otherwise without concern. Ordered exercise stress test which was positive during the test, so she is following with cardiology Dr. Cardenas. Having repeat echo, was put on a monitor, Taking amlodipine 2.5 mg. Blood pressure stable. Follow with cardiology in May. # Osteoporosis: Decrease in bone density 5 4% since 2022. Patient has tried Fosamax, which she got jaw pain so she discontinued. Also trialed Evista, which she did not tolerate well. Discussed Prolia, but she is not interested at this time. States she will take vitamin D/calcium, and think about it for her next visit in 6 months. Is aware of the risk factors of untreated osteoporosis. #Hypertension: BP today in office is stable. Continue with hydrochlorothiazide, losartan, and amlodipine. #Multivitamin: Patient should continue taking for an added benefit of nutrition #Vitamin D3: Patient should continue taking supplement for her Osteoporosis # Hyperlipidemia: Total cholesterol 208. Discussed lifestyle # Patient with shortness of breath, following with cardiology to rule out cardiac etiology, they think it is related to her blood pressure, questioning also pulmonary anterolaterally. Carbon dioxide 34. Will start with chest x-ray due to shortness of breath but may need pulmonary function testing. Patient to follow-up in 6 months for repeat blood work, chest x-ray in the meantime. Follow-up with cardiology in the meantime. Patient seen and examined. Comprehensive discussion was done on the following. 1. Nutrition: It is important to follow a healthy diet based on lots of vegetables and legumes and good fat. Avoid processed food and processed carbohydrates. Prepare your own meals. Read labels and avoid high fructose corn syrup, processed chemicals added to increase shelf life and preprepared meals. Avoid fast foods. Eat slowly and plan meals for a week. Try to count calories and be mindful off daily calorie intake. Get into the habit of keeping an eye on your weight by using an appropriate scale. Learn to log exercise and discussed fitness Apps like [employer] which can help keep log off calories taken versus calories burned. Local food should be preferred. Discussed D[employer]zen Versus [employer]teen. Discussed healthy supplements like fish oil, Tumeric, Curcumin, Melatonin, Resveratrol, Probiotics, Vitamin-D, Alpha-Lipoic acid, Vitamin-D and coconut oil. 2. It is important to exercise regularly. Is a good habit to walk at least 30 minutes a day. Gentle weightlifting with standard precautions to protect the back. Finding activity like cycling or hiking and get into the habit of engaging in it. Stretching before and after the exercises important. It is also important to contact me if there are any problems like shortness of breath, chest pain, back pain and joint or muscle pain associated with the exercise. 3. Discussed age appropriate screening guidelines. Colonoscopy needs to start at age 50 with stool for occult blood as appropriate. There is a new test that can test for genetic abnormalities in the stool sample, Cologuard. This would not replace a colonoscopy but could be used as a screening tool for patients who do not want a colonoscopy. We discussed the importance of early detection of colon cancer. 4. Discussed current guidelines with respect to breast examination, mammogram and pap smear for early detection of breast and cervical cancer. Patient advised to follow up with these appointments. 5. Discussed safe driving and no use of smart phone while driving 6. Age-appropriate immunizations were discussed. A tetanus booster is needed every 10 years. Flu vaccine is recommended every year just before the start of the flu season. Shingles vaccine is recommended after age 50 but not all insurances cover it. Pneumonia vaccine is given after age 65 unless there are certain comorbidities for which it is started earlier. 7. Diagnostic labs were discussed. These could include/not limited to CBC CMP and lipids with fasting blood glucose and insulin levels. Vitamin D and hemoglobin A1c testing might be appropriate. All quetsions answered to patients satisfaction. Patient verbalized understanding of diagnosis and treatments explained. To call sooner prior to next visit it any questions/concerns arise. Case discussed with collaborating physician Sukhi Garcia who reviewed the assessment and plan. Chart, medications, labs, vital signs reviewed. Dictation was accomplished with the use of [employer] voice recognition software, prone to medical misidentifications and grammatical errors. This is unintentional and the practitioner does try to identify and correct these, but some could still be present. Please do not hesitate to contact practitioner for clarification. 10/09/2024 Shortness of breath (ICD-10 - R06.02) # Chest palpitations: EKG showing bradycardia at Previous visit, but otherwise without concern. Ordered exercise stress test which was positive during the test, so she is following with cardiology Dr. Cardenas. Having repeat echo, was put on a monitor, Taking amlodipine 2.5 mg. Blood pressure stable. Follow with cardiology November 2024. # Osteoporosis: Decrease in bone density 5 4% since 2022. Patient has tried Fosamax, which she got jaw pain so she discontinued. Also trialed Evista, which she did not tolerate well.States she will take vitamin D/calcium. Has been doing Prolia, first injection was July 10, 2024, due end of December/january for second injection. Will schedule. #Hypertension: BP today in office is stable. Continue with hydrochlorothiazide, losartan, and amlodipine. #Multivitamin: Patient should continue taking for an added benefit of nutrition #Vitamin D3: Patient should continue taking supplement for her Osteoporosis # Hyperlipidemia: Total cholesterol 208. Most recent lipid panel 10/04/2024 with resolution. Total cholesterol 176, LDL 92. Patient is pleased with progress and continuing with lifestyle changes. # Patient with shortness of breath, following with cardiology , Ruling out cardiac ideology. Also questioning pulmonary etiology. Chest x-ray was within normal limits. Sent for pulmonary function testing, results still pending. Patient scheduled for a sleep study 2024 # Patient had a barium swallow secondary to concerns for globus sensation. Barium swallow showing small hiatal hernia and acid reflux. Discussed conservative treatments. Patient states it is tolerable, no further workup needed at this time but if symptoms persist consider endoscopy. # Patient was having concerns in regards to her right clavicle, x-ray obtained which was within normal limits. No further workup needed at this time # Patient has concerns for knee pain, ultrasound ordered to rule out bursitis which was not obtained. She did get an x-ray showing osteoarthritis. Following with orthopedics in November # Patient's following with orthopedics, just had an MRI of her spine which was within normal limits for acute ideology but showing degenerative changes and disc bulge. Patient scheduled with orthopedics in November. Patient will follow-up at the end of December/january for Prolia injection, sooner as needed. Time spent with patient 60 minutes or greater than 50% on patient occasion and care coordination All quetsions answered to patients satisfaction. Patient verbalized understanding of diagnosis and treatments explained. To call sooner prior to next visit it any questions/concerns arise. Case discussed with collaborating physician Sukhi Garcia who reviewed the assessment and plan. Chart, medications, labs, vital signs reviewed. Dictation was accomplished with the use of [employer] voice recognition software, prone to medical misidentifications and grammatical errors. This is unintentional and the practitioner does try to identify and correct these, but some could still be present. Please do not hesitate to contact practitioner for clarification. 07/15/2024 Essential hypertension (ICD-10 - I10) Izzy is a pleasant 68-year-old female who presents today for multitude of concerns. #Elevated blood pressure readin/80, patient states that her blood pressure normally does not run this high, checks it at home we will continue to monitor #Right knee pain: States that she experiences a occasional sharp pain behind her right knee, states that this knee has been bothersome, follows with [facility]. Sustained a cortisone injection back in January, intermittently becomes swollen she utilizes icing and Aleve to alleviate the swelling. Ordered a behind the right knee ultrasound today to rule out a Quinones's cyst. Consider obtaining an MRI if imaging is normal. Additionally ordered a right knee x-ray to ensure there are no bony abnormalities. #Shortness of breath: Patient was seen on 05/18/2024, she underwent a stress echo that revealed normal resting echo with preserved ejection fraction and no regional wall motion abnormalities. Additionally in January 2024 she underwent 48-hour Holter monitoring that revealed predominant sinus rhythm. Additionally she had a EKG conducted, and was ordered a sleep study. Will refer to pulmonology, as the patient may benefit from pulmonary function testing. #Right clavicular discomfort: Patient states that her clavicle is growing into her trachea, upon physical exam there are no abnormalities between her right and left clavicular bones. Bilateral clavicular x-ray ordered today. #Globus sensation: Barium swallow ordered today All questions have been answered to patient's satisfaction. Patient verbalized understanding of diagnosis and treatments explained. Advised to call sooner prior to next visit it any questions/concerns arise. Case discussed with Sukhi FRANK who reviewed the assessment and plan. Chart, medications, labs, vital signs reviewed. Dictation was accomplished with the use of [employer] voice recognition software, which is prone to medical misidentifications and grammatical errors. This are unintentional and the practitioner does try to identify and correct these, but some could still be present. Please do not hesitate to contact practitioner for clarification. 01/08/2025 Vitamin D deficiency (ICD-10 - E55.9) # Stye/blepharitis of the right eye. Patient will contact energy audit advisor. Allergic to doxycycline therefore we will try azithromycin, and topical neomycin polymyxin dexamethasone ointment. Discussed proper use, and side effects. # Chest palpitations: EKG showing bradycardia at Previous visit, but otherwise without concern. Ordered exercise stress test which was positive during the test, so she is following with cardiology Dr. Cardenas. Having repeat echo, was put on a monitor, Taking amlodipine 2.5 mg. Blood pressure stable. Follow with cardiology # Osteoporosis: Decrease in bone density 5 4% since 2022. Patient has tried Fosamax, which she got jaw pain so she discontinued. Also trialed Evista, which she did not tolerate well.States she will take vitamin D/calcium. Has been doing Prolia, first injection was July 10, 2024, Second injection January 08, 2025,Will be due in July. #Hypertension: BP today in office is stable. Continue with hydrochlorothiazide, losartan, and amlodipine. #Multivitamin: Patient should continue taking for an added benefit of nutrition #Vitamin D3: Patient should continue taking supplement for her Osteoporosis # Hyperlipidemia: Total cholesterol 208. Most recent lipid panel 10/04/2024 with resolution. Total cholesterol 176, LDL 92. Patient is pleased with progress and continuing with lifestyle changes. # Patient with shortness of breath, following with cardiology , Ruling out cardiac ideology. Also questioning pulmonary etiology. Chest x-ray was within normal limits. Sent for pulmonary function testing, results still pending. Patient had sleep study on 2024. # Patient had a barium swallow secondary to concerns for globus sensation. Barium swallow showing small hiatal hernia and acid reflux. Discussed conservative treatments. Patient states it is tolerable, no further workup needed at this time but if symptoms persist consider endoscopy. # Patient was having concerns in regards to her right clavicle, x-ray obtained which was within normal limits. No further workup needed at this time # Patient has concerns for knee pain, ultrasound ordered to rule out bursitis which was not obtained. She did get an x-ray showing osteoarthritis. Following with orthopedics # Patient's following with orthopedics, just had an MRI of her spine which was within normal limits for acute ideology but showing degenerative changes and disc bulge. Patient scheduled with orthopedics in November. Follow-up in March for Medicare wellness visit with fasting labs. Sooner as needed.In the meantime. 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 Esqueda. Patient wants me to hold off on referral today. All quetsions answered to patients satisfaction. Patient verbalized understanding of diagnosis and treatments explained. To call sooner prior to next visit it any questions/concerns arise. Case discussed with collaborating physician Sukhi Garcia who reviewed the assessment and plan. Chart, medications, labs, vital signs reviewed. Dictation was accomplished with the use of [employer] voice recognition software, prone to medical misidentifications and grammatical errors. This is unintentional and the practitioner does try to identify and correct these, but some could still be present. Please do not hesitate to contact practitioner for clarification. 01/08/2025 Essential hypertension (ICD-10 - I10) # Stye/blepharitis of the right eye. Patient will contact energy audit advisor. Allergic to doxycycline therefore we will try azithromycin, and topical neomycin polymyxin dexamethasone ointment. Discussed proper use, and side effects. # Chest palpitations: EKG showing bradycardia at Previous visit, but otherwise without concern. Ordered exercise stress test which was positive during the test, so she is following with cardiology Dr. Cardenas. Having repeat echo, was put on a monitor, Taking amlodipine 2.5 mg. Blood pressure stable. Follow with cardiology # Osteoporosis: Decrease in bone density 5 4% since 2022. Patient has tried Fosamax, which she got jaw pain so she discontinued. Also trialed Evista, which she did not tolerate well.States she will take vitamin D/calcium. Has been doing Prolia, first injection was July 10, 2024, Second injection January 08, 2025,Will be due in July. #Hypertension: BP today in office is stable. Continue with hydrochlorothiazide, losartan, and amlodipine. #Multivitamin: Patient should continue taking for an added benefit of nutrition #Vitamin D3: Patient should continue taking supplement for her Osteoporosis # Hyperlipidemia: Total cholesterol 208. Most recent lipid panel 10/04/2024 with resolution. Total cholesterol 176, LDL 92. Patient is pleased with progress and continuing with lifestyle changes. # Patient with shortness of breath, following with cardiology , Ruling out cardiac ideology. Also questioning pulmonary etiology. Chest x-ray was within normal limits. Sent for pulmonary function testing, results still pending. Patient had sleep study on 2024. # Patient had a barium swallow secondary to concerns for globus sensation. Barium swallow showing small hiatal hernia and acid reflux. Discussed conservative treatments. Patient states it is tolerable, no further workup needed at this time but if symptoms persist consider endoscopy. # Patient was having concerns in regards to her right clavicle, x-ray obtained which was within normal limits. No further workup needed at this time # Patient has concerns for knee pain, ultrasound ordered to rule out bursitis which was not obtained. She did get an x-ray showing osteoarthritis. Following with orthopedics # Patient's following with orthopedics, just had an MRI of her spine which was within normal limits for acute ideology but showing degenerative changes and disc bulge. Patient scheduled with orthopedics in November. Follow-up in March for Medicare wellness visit with fasting labs. Sooner as needed.In the meantime. 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 Esqueda. Patient wants me to hold off on referral today. All quetsions answered to patients satisfaction. Patient verbalized understanding of diagnosis and treatments explained. To call sooner prior to next visit it any questions/concerns arise. Case discussed with collaborating physician Sukhi Garcia who reviewed the assessment and plan. Chart, medications, labs, vital signs reviewed. Dictation was accomplished with the use of [employer] voice recognition software, prone to medical misidentifications and grammatical errors. This is unintentional and the practitioner does try to identify and correct these, but some could still be present. Please do not hesitate to contact practitioner for clarification. 10/09/2024 Seasonal allergies (ICD-10 - J30.2) # Chest palpitations: EKG showing bradycardia at Previous visit, but otherwise without concern. Ordered exercise stress test which was positive during the test, so she is following with cardiology Dr. Cardenas. Having repeat echo, was put on a monitor, Taking amlodipine 2.5 mg. Blood pressure stable. Follow with cardiology November 2024. # Osteoporosis: Decrease in bone density 5 4% since 2022. Patient has tried Fosamax, which she got jaw pain so she discontinued. Also trialed Evista, which she did not tolerate well.States she will take vitamin D/calcium. Has been doing Prolia, first injection was July 10, 2024, due end of December/january for second injection. Will schedule. #Hypertension: BP today in office is stable. Continue with hydrochlorothiazide, losartan, and amlodipine. #Multivitamin: Patient should continue taking for an added benefit of nutrition #Vitamin D3: Patient should continue taking supplement for her Osteoporosis # Hyperlipidemia: Total cholesterol 208. Most recent lipid panel 10/04/2024 with resolution. Total cholesterol 176, LDL 92. Patient is pleased with progress and continuing with lifestyle changes. # Patient with shortness of breath, following with cardiology , Ruling out cardiac ideology. Also questioning pulmonary etiology. Chest x-ray was within normal limits. Sent for pulmonary function testing, results still pending. Patient scheduled for a sleep study 2024 # Patient had a barium swallow secondary to concerns for globus sensation. Barium swallow showing small hiatal hernia and acid reflux. Discussed conservative treatments. Patient states it is tolerable, no further workup needed at this time but if symptoms persist consider endoscopy. # Patient was having concerns in regards to her right clavicle, x-ray obtained which was within normal limits. No further workup needed at this time # Patient has concerns for knee pain, ultrasound ordered to rule out bursitis which was not obtained. She did get an x-ray showing osteoarthritis. Following with orthopedics in November # Patient's following with orthopedics, just had an MRI of her spine which was within normal limits for acute ideology but showing degenerative changes and disc bulge. Patient scheduled with orthopedics in November. Patient will follow-up at the end of December/january for Prolia injection, sooner as needed. Time spent with patient 60 minutes or greater than 50% on patient occasion and care coordination All quetsions answered to patients satisfaction. Patient verbalized understanding of diagnosis and treatments explained. To call sooner prior to next visit it any questions/concerns arise. Case discussed with collaborating physician Sukhi Garcia who reviewed the assessment and plan. Chart, medications, labs, vital signs reviewed. Dictation was accomplished with the use of [employer] voice recognition software, prone to medical misidentifications and grammatical errors. This is unintentional and the practitioner does try to identify and correct these, but some could still be present. Please do not hesitate to contact practitioner for clarification. 04/02/2024 Shortness of breath (ICD-10 - R06.02) Patient up-to-date on all routine screening and vaccines. Healthcare proxy is her Fran. # Chest palpitations: EKG showing bradycardia at Previous visit, but otherwise without concern. Ordered exercise stress test which was positive during the test, so she is following with cardiology Dr. Cardenas. Having repeat echo, was put on a monitor, Taking amlodipine 2.5 mg. Blood pressure stable. Follow with cardiology in May. # Osteoporosis: Decrease in bone density 5 4% since 2022. Patient has tried Fosamax, which she got jaw pain so she discontinued. Also trialed Evista, which she did not tolerate well. Discussed Prolia, but she is not interested at this time. States she will take vitamin D/calcium, and think about it for her next visit in 6 months. Is aware of the risk factors of untreated osteoporosis. #Hypertension: BP today in office is stable. Continue with hydrochlorothiazide, losartan, and amlodipine. #Multivitamin: Patient should continue taking for an added benefit of nutrition #Vitamin D3: Patient should continue taking supplement for her Osteoporosis # Hyperlipidemia: Total cholesterol 208. Discussed lifestyle # Patient with shortness of breath, following with cardiology to rule out cardiac etiology, they think it is related to her blood pressure, questioning also pulmonary anterolaterally. Carbon dioxide 34. Will start with chest x-ray due to shortness of breath but may need pulmonary function testing. Patient to follow-up in 6 months for repeat blood work, chest x-ray in the meantime. Follow-up with cardiology in the meantime. Patient seen and examined. Comprehensive discussion was done on the following. 1. Nutrition: It is important to follow a healthy diet based on lots of vegetables and legumes and good fat. Avoid processed food and processed carbohydrates. Prepare your own meals. Read labels and avoid high fructose corn syrup, processed chemicals added to increase shelf life and preprepared meals. Avoid fast foods. Eat slowly and plan meals for a week. Try to count calories and be mindful off daily calorie intake. Get into the habit of keeping an eye on your weight by using an appropriate scale. Learn to log exercise and discussed fitness Apps like [employer] which can help keep log off calories taken versus calories burned. Local food should be preferred. Discussed D[employer] Vers[employer] Fifteen. Discussed healthy supplements like fish oil, Tumeric, Curcumin, Melatonin, Resveratrol, Probiotics, Vitamin-D, Alpha-Lipoic acid, Vitamin-D and coconut oil. 2. It is important to exercise regularly. Is a good habit to walk at least 30 minutes a day. Gentle weightlifting with standard precautions to protect the back. Finding activity like cycling or hiking and get into the habit of engaging in it. Stretching before and after the exercises important. It is also important to contact me if there are any problems like shortness of breath, chest pain, back pain and joint or muscle pain associated with the exercise. 3. Discussed age appropriate screening guidelines. Colonoscopy needs to start at age 50 with stool for occult blood as appropriate. There is a new test that can test for genetic abnormalities in the stool sample, Cologuard. This would not replace a colonoscopy but could be used as a screening tool for patients who do not want a colonoscopy. We discussed the importance of early detection of colon cancer. 4. Discussed current guidelines with respect to breast examination, mammogram and pap smear for early detection of breast and cervical cancer. Patient advised to follow up with these appointments. 5. Discussed safe driving and no use of smart phone while driving 6. Age-appropriate immunizations were discussed. A tetanus booster is needed every 10 years. Flu vaccine is recommended every year just before the start of the flu season. Shingles vaccine is recommended after age 50 but not all insurances cover it. Pneumonia vaccine is given after age 65 unless there are certain comorbidities for which it is started earlier. 7. Diagnostic labs were discussed. These could include/not limited to CBC CMP and lipids with fasting blood glucose and insulin levels. Vitamin D and hemoglobin A1c testing might be appropriate. All quetsions answered to patients satisfaction. Patient verbalized understanding of diagnosis and treatments explained. To call sooner prior to next visit it any questions/concerns arise. Case discussed with collaborating physician Sukhi Garica who reviewed the assessment and plan. Chart, medications, labs, vital signs reviewed. Dictation was accomplished with the use of [employer] voice recognition software, prone to medical misidentifications and grammatical errors. This is unintentional and the practitioner does try to identify and correct these, but some could still be present. Please do not hesitate to contact practitioner for clarification. 10/09/2024 Vitamin D deficiency (ICD-10 - E55.9) # Chest palpitations: EKG showing bradycardia at Previous visit, but otherwise without concern. Ordered exercise stress test which was positive during the test, so she is following with cardiology Dr. Cardenas. Having repeat echo, was put on a monitor, Taking amlodipine 2.5 mg. Blood pressure stable. Follow with cardiology November 2024. # Osteoporosis: Decrease in bone density 5 4% since 2022. Patient has tried Fosamax, which she got jaw pain so she discontinued. Also trialed Evista, which she did not tolerate well.States she will take vitamin D/calcium. Has been doing Prolia, first injection was July 10, 2024, due end of December/beginning january for second injection. Will schedule. #Hypertension: BP today in office is stable. Continue with hydrochlorothiazide, losartan, and amlodipine. #Multivitamin: Patient should continue taking for an added benefit of nutrition #Vitamin D3: Patient should continue taking supplement for her Osteoporosis # Hyperlipidemia: Total cholesterol 208. Most recent lipid panel 10/04/2024 with resolution. Total cholesterol 176, LDL 92. Patient is pleased with progress and continuing with lifestyle changes. # Patient with shortness of breath, following with cardiology , Ruling out cardiac ideology. Also questioning pulmonary etiology. Chest x-ray was within normal limits. Sent for pulmonary function testing, results still pending. Patient scheduled for a sleep study 2024 # Patient had a barium swallow secondary to concerns for globus sensation. Barium swallow showing small hiatal hernia and acid reflux. Discussed conservative treatments. Patient states it is tolerable, no further workup needed at this time but if symptoms persist consider endoscopy. # Patient was having concerns in regards to her right clavicle, x-ray obtained which was within normal limits. No further workup needed at this time # Patient has concerns for knee pain, ultrasound ordered to rule out bursitis which was not obtained. She did get an x-ray showing osteoarthritis. Following with orthopedics in November # Patient's following with orthopedics, just had an MRI of her spine which was within normal limits for acute ideology but showing degenerative changes and disc bulge. Patient scheduled with orthopedics in November. Patient will follow-up at the end of December/january for Prolia injection, sooner as needed. Time spent with patient 60 minutes or greater than 50% on patient occasion and care coordination All quetsions answered to patients satisfaction. Patient verbalized understanding of diagnosis and treatments explained. To call sooner prior to next visit it any questions/concerns arise. Case discussed with collaborating physician Sukhi Garcia who reviewed the assessment and plan. Chart, medications, labs, vital signs reviewed. Dictation was accomplished with the use of [employer] voice recognition software, prone to medical misidentifications and grammatical errors. This is unintentional and the practitioner does try to identify and correct these, but some could still be present. Please do not hesitate to contact practitioner for clarification. 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 Patient will contact energy audit advisor. Allergic to doxycycline therefore we will try azithromycin, and topical neomycin polymyxin dexamethasone ointment. Discussed proper use, and side effects. # Chest palpitations: EKG showing bradycardia at Previous visit, but otherwise without concern. Ordered exercise stress test which was positive during the test, so she is following with cardiology Dr. Cardenas. Having repeat echo, was put on a monitor, Taking amlodipine 2.5 mg. Blood pressure stable. Follow with cardiology # Osteoporosis: Decrease in bone density 5 4% since 2022. Patient has tried Fosamax, which she got jaw pain so she discontinued. Also trialed Evista, which she did not tolerate well.States she will take vitamin D/calcium. Has been doing Prolia, first injection was July 10, 2024, Second injection January 08, 2025,Will be due in July. #Hypertension: BP today in office is stable. Continue with hydrochlorothiazide, losartan, and amlodipine. #Multivitamin: Patient should continue taking for an added benefit of nutrition #Vitamin D3: Patient should continue taking supplement for her Osteoporosis # Hyperlipidemia: Total cholesterol 208. Most recent lipid panel 10/04/2024 with resolution. Total cholesterol 176, LDL 92. Patient is pleased with progress and continuing with lifestyle changes. # Patient with shortness of breath, following with cardiology , Ruling out cardiac ideology. Also questioning pulmonary etiology. Chest x-ray was within normal limits. Sent for pulmonary function testing, results still pending. Patient had sleep study on 2024. # Patient had a barium swallow secondary to concerns for globus sensation. Barium swallow showing small hiatal hernia and acid reflux. Discussed conservative treatments. Patient states it is tolerable, no further workup needed at this time but if symptoms persist consider endoscopy. # Patient was having concerns in regards to her right clavicle, x-ray obtained which was within normal limits. No further workup needed at this time # Patient has concerns for knee pain, ultrasound ordered to rule out bursitis which was not obtained. She did get an x-ray showing osteoarthritis. Following with orthopedics # Patient's following with orthopedics, just had an MRI of her spine which was within normal limits for acute ideology but showing degenerative changes and disc bulge. Patient scheduled with orthopedics in November. Follow-up in March for Medicare wellness visit with fasting labs. Sooner as needed.In the meantime. 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 Esqueda. Patient wants me to hold off on referral today. All quetsions answered to patients satisfaction. Patient verbalized understanding of diagnosis and treatments explained. To call sooner prior to next visit it any questions/concerns arise. Case discussed with collaborating physician Sukhi Garcia who reviewed the assessment and plan. Chart, medications, labs, vital signs reviewed. Dictation was accomplished with the use of [employer] voice recognition software, prone to medical misidentifications and grammatical errors. This is unintentional and the practitioner does try to identify and correct these, but some could still be present. Please do not hesitate to contact practitioner for clarification. 04/02/2024 Encounter for screening for depression (ICD-10 - Z13.31) Patient up-to-date on all routine screening and vaccines. Healthcare proxy is her Fran. # Chest palpitations: EKG showing bradycardia at Previous visit, but otherwise without concern. Ordered exercise stress test which was positive during the test, so she is following with cardiology Dr. Cardenas. Having repeat echo, was put on a monitor, Taking amlodipine 2.5 mg. Blood pressure stable. Follow with cardiology in May. # Osteoporosis: Decrease in bone density 5 4% since 2022. Patient has tried Fosamax, which she got jaw pain so she discontinued. Also trialed Evista, which she did not tolerate well. Discussed Prolia, but she is not interested at this time. States she will take vitamin D/calcium, and think about it for her next visit in 6 months. Is aware of the risk factors of untreated osteoporosis. #Hypertension: BP today in office is stable. Continue with hydrochlorothiazide, losartan, and amlodipine. #Multivitamin: Patient should continue taking for an added benefit of nutrition #Vitamin D3: Patient should continue taking supplement for her Osteoporosis # Hyperlipidemia: Total cholesterol 208. Discussed lifestyle # Patient with shortness of breath, following with cardiology to rule out cardiac etiology, they think it is related to her blood pressure, questioning also pulmonary anterolaterally. Carbon dioxide 34. Will start with chest x-ray due to shortness of breath but may need pulmonary function testing. Patient to follow-up in 6 months for repeat blood work, chest x-ray in the meantime. Follow-up with cardiology in the meantime. Patient seen and examined. Comprehensive discussion was done on the following. 1. Nutrition: It is important to follow a healthy diet based on lots of vegetables and legumes and good fat. Avoid processed food and processed carbohydrates. Prepare your own meals. Read labels and avoid high fructose corn syrup, processed chemicals added to increase shelf life and preprepared meals. Avoid fast foods. Eat slowly and plan meals for a week. Try to count calories and be mindful off daily calorie intake. Get into the habit of keeping an eye on your weight by using an appropriate scale. Learn to log exercise and discussed fitness Apps like [employer] which can help keep log off calories taken versus calories burned. Local food should be preferred. Discussed [employer] Versus [employer]. Discussed healthy supplements like fish oil, Tumeric, Curcumin, Melatonin, Resveratrol, Probiotics, Vitamin-D, Alpha-Lipoic acid, Vitamin-D and coconut oil. 2. It is important to exercise regularly. Is a good habit to walk at least 30 minutes a day. Gentle weightlifting with standard precautions to protect the back. Finding activity like cycling or hiking and get into the habit of engaging in it. Stretching before and after the exercises important. It is also important to contact me if there are any problems like shortness of breath, chest pain, back pain and joint or muscle pain associated with the exercise. 3. Discussed age appropriate screening guidelines. Colonoscopy needs to start at age 50 with stool for occult blood as appropriate. There is a new test that can test for genetic abnormalities in the stool sample, Cologuard. This would not replace a colonoscopy but could be used as a screening tool for patients who do not want a colonoscopy. We discussed the importance of early detection of colon cancer. 4. Discussed current guidelines with respect to breast examination, mammogram and pap smear for early detection of breast and cervical cancer. Patient advised to follow up with these appointments. 5. Discussed safe driving and no use of smart phone while driving 6. Age-appropriate immunizations were discussed. A tetanus booster is needed every 10 years. Flu vaccine is recommended every year just before the start of the flu season. Shingles vaccine is recommended after age 50 but not all insurances cover it. Pneumonia vaccine is given after age 65 unless there are certain comorbidities for which it is started earlier. 7. Diagnostic labs were discussed. These could include/not limited to CBC CMP and lipids with fasting blood glucose and insulin levels. Vitamin D and hemoglobin A1c testing might be appropriate. All quetsions answered to patients satisfaction. Patient verbalized understanding of diagnosis and treatments explained. To call sooner prior to next visit it any questions/concerns arise. Case discussed with collaborating physician Sukhi Garcia who reviewed the assessment and plan. Chart, medications, labs, vital signs reviewed. Dictation was accomplished with the use of [employer] voice recognition software, prone to medical misidentifications and grammatical errors. This is unintentional and the practitioner does try to identify and correct these, but some could still be present. Please do not hesitate to contact practitioner for clarification. 01/08/2025 Hordeolum externum of right upper eyelid (ICD-10 - H00.011) # Stye/blepharitis of the right eye. Patient will contact energy audit advisor. Allergic to doxycycline therefore we will try azithromycin, and topical neomycin polymyxin dexamethasone ointment. Discussed proper use, and side effects. # Chest palpitations: EKG showing bradycardia at Previous visit, but otherwise without concern. Ordered exercise stress test which was positive during the test, so she is following with cardiology Dr. Cardenas. Having repeat echo, was put on a monitor, Taking amlodipine 2.5 mg. Blood pressure stable. Follow with cardiology # Osteoporosis: Decrease in bone density 5 4% since 2022. Patient has tried Fosamax, which she got jaw pain so she discontinued. Also trialed Evista, which she did not tolerate well.States she will take vitamin D/calcium. Has been doing Prolia, first injection was July 10, 2024, Second injection January 08, 2025,Will be due in July. #Hypertension: BP today in office is stable. Continue with hydrochlorothiazide, losartan, and amlodipine. #Multivitamin: Patient should continue taking for an added benefit of nutrition #Vitamin D3: Patient should continue taking supplement for her Osteoporosis # Hyperlipidemia: Total cholesterol 208. Most recent lipid panel 10/04/2024 with resolution. Total cholesterol 176, LDL 92. Patient is pleased with progress and continuing with lifestyle changes. # Patient with shortness of breath, following with cardiology , Ruling out cardiac ideology. Also questioning pulmonary etiology. Chest x-ray was within normal limits. Sent for pulmonary function testing, results still pending. Patient had sleep study on 2024. # Patient had a barium swallow secondary to concerns for globus sensation. Barium swallow showing small hiatal hernia and acid reflux. Discussed conservative treatments. Patient states it is tolerable, no further workup needed at this time but if symptoms persist consider endoscopy. # Patient was having concerns in regards to her right clavicle, x-ray obtained which was within normal limits. No further workup needed at this time # Patient has concerns for knee pain, ultrasound ordered to rule out bursitis which was not obtained. She did get an x-ray showing osteoarthritis. Following with orthopedics # Patient's following with orthopedics, just had an MRI of her spine which was within normal limits for acute ideology but showing degenerative changes and disc bulge. Patient scheduled with orthopedics in November. Follow-up in March for Medicare wellness visit with fasting labs. Sooner as needed.In the meantime. 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 Esqueda. Patient wants me to hold off on referral today. All quetsions answered to patients satisfaction. Patient verbalized understanding of diagnosis and treatments explained. To call sooner prior to next visit it any questions/concerns arise. Case discussed with collaborating physician Sukhi Garcia who reviewed the assessment and plan. Chart, medications, labs, vital signs reviewed. Dictation was accomplished with the use of [employer] voice recognition software, prone to medical misidentifications and grammatical errors. This is unintentional and the practitioner does try to identify and correct these, but some could still be present. Please do not hesitate to contact practitioner for clarification. 04/02/2024 Encounter for screening for other disorder (ICD-10 - Z13.89) Patient up-to-date on all routine screening and vaccines. Healthcare proxy is her Fran. # Chest palpitations: EKG showing bradycardia at Previous visit, but otherwise without concern. Ordered exercise stress test which was positive during the test, so she is following with cardiology Dr. Cardenas. Having repeat echo, was put on a monitor, Taking amlodipine 2.5 mg. Blood pressure stable. Follow with cardiology in May. # Osteoporosis: Decrease in bone density 5 4% since 2022. Patient has tried Fosamax, which she got jaw pain so she discontinued. Also trialed Evista, which she did not tolerate well. Discussed Prolia, but she is not interested at this time. States she will take vitamin D/calcium, and think about it for her next visit in 6 months. Is aware of the risk factors of untreated osteoporosis. #Hypertension: BP today in office is stable. Continue with hydrochlorothiazide, losartan, and amlodipine. #Multivitamin: Patient should continue taking for an added benefit of nutrition #Vitamin D3: Patient should continue taking supplement for her Osteoporosis # Hyperlipidemia: Total cholesterol 208. Discussed lifestyle # Patient with shortness of breath, following with cardiology to rule out cardiac etiology, they think it is related to her blood pressure, questioning also pulmonary anterolaterally. Carbon dioxide 34. Will start with chest x-ray due to shortness of breath but may need pulmonary function testing. Patient to follow-up in 6 months for repeat blood work, chest x-ray in the meantime. Follow-up with cardiology in the meantime. Patient seen and examined. Comprehensive discussion was done on the following. 1. Nutrition: It is important to follow a healthy diet based on lots of vegetables and legumes and good fat. Avoid processed food and processed carbohydrates. Prepare your own meals. Read labels and avoid high fructose corn syrup, processed chemicals added to increase shelf life and preprepared meals. Avoid fast foods. Eat slowly and plan meals for a week. Try to count calories and be mindful off daily calorie intake. Get into the habit of keeping an eye on your weight by using an appropriate scale. Learn to log exercise and discussed fitness Apps like [employer] which can help keep log off calories taken versus calories burned. Local food should be preferred. Discussed Dirty Dozen Versus Clean Fifteen. Discussed healthy supplements like fish oil, Tumeric, Curcumin, Melatonin, Resveratrol, Probiotics, Vitamin-D, Alpha-Lipoic acid, Vitamin-D and coconut oil. 2. It is important to exercise regularly. Is a good habit to walk at least 30 minutes a day. Gentle weightlifting with standard precautions to protect the back. Finding activity like cycling or hiking and get into the habit of engaging in it. Stretching before and after the exercises important. It is also important to contact me if there are any problems like shortness of breath, chest pain, back pain and joint or muscle pain associated with the exercise. 3. Discussed age appropriate screening guidelines. Colonoscopy needs to start at age 50 with stool for occult blood as appropriate. There is a new test that can test for genetic abnormalities in the stool sample, Cologuard. This would not replace a colonoscopy but could be used as a screening tool for patients who do not want a colonoscopy. We discussed the importance of early detection of colon cancer. 4. Discussed current guidelines with respect to breast examination, mammogram and pap smear for early detection of breast and cervical cancer. Patient advised to follow up with these appointments. 5. Discussed safe driving and no use of smart phone while driving 6. Age-appropriate immunizations were discussed. A tetanus booster is needed every 10 years. Flu vaccine is recommended every year just before the start of the flu season. Shingles vaccine is recommended after age 50 but not all insurances cover it. Pneumonia vaccine is given after age 65 unless there are certain comorbidities for which it is started earlier. 7. Diagnostic labs were discussed. These could include/not limited to CBC CMP and lipids with fasting blood glucose and insulin levels. Vitamin D and hemoglobin A1c testing might be appropriate. All quetsions answered to patients satisfaction. Patient verbalized understanding of diagnosis and treatments explained. To call sooner prior to next visit it any questions/concerns arise. Case discussed with collaborating physician Sukhi Garcia who reviewed the assessment and plan. Chart, medications, labs, vital signs reviewed. Dictation was accomplished with the use of [employer] voice recognition software, prone to medical misidentifications and grammatical errors. This is unintentional and the practitioner does try to identify and correct these, but some could still be present. Please do not hesitate to contact practitioner for clarification. 04/02/2024 Other specified counseling (ICD-10 - Z71.89) Patient up-to-date on all routine screening and vaccines. Healthcare proxy is her Fran. # Chest palpitations: EKG showing bradycardia at Previous visit, but otherwise without concern. Ordered exercise stress test which was positive during the test, so she is following with cardiology Dr. Cardenas. Having repeat echo, was put on a monitor, Taking amlodipine 2.5 mg. Blood pressure stable. Follow with cardiology in May. # Osteoporosis: Decrease in bone density 5 4% since 2022. Patient has tried Fosamax, which she got jaw pain so she discontinued. Also trialed Evista, which she did not tolerate well. Discussed Prolia, but she is not interested at this time. States she will take vitamin D/calcium, and think about it for her next visit in 6 months. Is aware of the risk factors of untreated osteoporosis. #Hypertension: BP today in office is stable. Continue with hydrochlorothiazide, losartan, and amlodipine. #Multivitamin: Patient should continue taking for an added benefit of nutrition #Vitamin D3: Patient should continue taking supplement for her Osteoporosis # Hyperlipidemia: Total cholesterol 208. Discussed lifestyle # Patient with shortness of breath, following with cardiology to rule out cardiac etiology, they think it is related to her blood pressure, questioning also pulmonary anterolaterally. Carbon dioxide 34. Will start with chest x-ray due to shortness of breath but may need pulmonary function testing. Patient to follow-up in 6 months for repeat blood work, chest x-ray in the meantime. Follow-up with cardiology in the meantime. Patient seen and examined. Comprehensive discussion was done on the following. 1. Nutrition: It is important to follow a healthy diet based on lots of vegetables and legumes and good fat. Avoid processed food and processed carbohydrates. Prepare your own meals. Read labels and avoid high fructose corn syrup, processed chemicals added to increase shelf life and preprepared meals. Avoid fast foods. Eat slowly and plan meals for a week. Try to count calories and be mindful off daily calorie intake. Get into the habit of keeping an eye on your weight by using an appropriate scale. Learn to log exercise and discussed fitness Apps like [employer] which can help keep log off calories taken versus calories burned. Local food should be preferred. Discussed Dirty Dozen Versus Clean Fifteen. Discussed healthy supplements like fish oil, Tumeric, Curcumin, Melatonin, Resveratrol, Probiotics, Vitamin-D, Alpha-Lipoic acid, Vitamin-D and coconut oil. 2. It is important to exercise regularly. Is a good habit to walk at least 30 minutes a day. Gentle weightlifting with standard precautions to protect the back. Finding activity like cycling or hiking and get into the habit of engaging in it. Stretching before and after the exercises important. It is also important to contact me if there are any problems like shortness of breath, chest pain, back pain and joint or muscle pain associated with the exercise. 3. Discussed age appropriate screening guidelines. Colonoscopy needs to start at age 50 with stool for occult blood as appropriate. There is a new test that can test for genetic abnormalities in the stool sample, Cologuard. This would not replace a colonoscopy but could be used as a screening tool for patients who do not want a colonoscopy. We discussed the importance of early detection of colon cancer. 4. Discussed current guidelines with respect to breast examination, mammogram and pap smear for early detection of breast and cervical cancer. Patient advised to follow up with these appointments. 5. Discussed safe driving and no use of smart phone while driving 6. Age-appropriate immunizations were discussed. A tetanus booster is needed every 10 years. Flu vaccine is recommended every year just before the start of the flu season. Shingles vaccine is recommended after age 50 but not all insurances cover it. Pneumonia vaccine is given after age 65 unless there are certain comorbidities for which it is started earlier. 7. Diagnostic labs were discussed. These could include/not limited to CBC CMP and lipids with fasting blood glucose and insulin levels. Vitamin D and hemoglobin A1c testing might be appropriate. All quetsions answered to patients satisfaction. Patient verbalized understanding of diagnosis and treatments explained. To call sooner prior to next visit it any questions/concerns arise. Case discussed with collaborating physician Sukhi Garcia who reviewed the assessment and plan. Chart, medications, labs, vital signs reviewed. Dictation was accomplished with the use of [employer] voice recognition software, prone to medical misidentifications and grammatical errors. This is unintentional and the practitioner does try to identify and correct these, but some could still be present. Please do not hesitate to contact practitioner for clarification. PLAN OF TREATMENT Pending Test Test Name Order Date Barium Swallow 07/15/2024 Mammogram 06/13/2022 X ray : Knee, right 2 views 07/15/2024 X ray : Chest with 2 views 04/02/2024 Bone Density 01/11/2023 Bone Density 01/14/2024 X ray : Clavicle, left 07/15/2024 X ray : Clavicle, right 07/15/2024 EKG 10/22/2023 LIPID PANEL, STANDARD 01/08/2025 LIPID PANEL, STANDARD 01/14/2024 LIPID PANEL, STANDARD 04/02/2024 LIPID PANEL, STANDARD 03/07/2023 LIPID PANEL, STANDARD 01/19/2022 FOOD ALLERGY PROFILE 01/19/2022 COMPREHENSIVE METABOLIC PANEL 01/19/2022 COMPREHENSIVE METABOLIC PANEL 01/14/2024 COMPREHENSIVE METABOLIC PANEL 01/08/2025 CBC (INCLUDES DIFF/PLT) 01/08/2025 CBC (INCLUDES DIFF/PLT) 01/14/2024 CBC (INCLUDES DIFF/PLT) 01/19/2022 URINALYSIS, COMPLETE 01/19/2022 URINALYSIS, COMPLETE 01/14/2024 URINALYSIS, COMPLETE 01/08/2025 RHEUMATOID FACTOR 01/19/2022 AUSTEN SCR,IFA W/REFL TITER/ PATTERN/LUPUS PNL 1 01/19/2022 DNA (DS) ANTIBODY 01/19/2022 HEMOGLOBIN A1c 01/08/2025 VITAMIN D,25-OH,TOTAL,IA 01/08/2025 VITAMIN D,25-OH,TOTAL,IA 01/19/2022 AMANDA ROSALES VIRUS ANTIBODY PANEL 2021 T[place] BORNE DISEASE, ANTIBODY PANEL 01/19 Next Appt Details Provider Name:YOBANY SIMMS, 03/31/2025 11:15:00 AM, [address], [place], [address], Insurance Providers Payer Name Payer Address Payer Phone Subscriber Number Group Number Insured Name Patient Relationship to Insured Coverage Start Date Coverage End Date Medicare Part B J14 [address] [place] [id number] [id number] Izzy Hale Self - patient is the insured 3 [employer] [address] [place] [id number] [phone] [id number] Izzy Hale Self - patient is the insured MEDICATIONS ADMINISTERED Medication Instructions Date of Administration Dosage Notes Prolia 01/08/2025 1 mL LOT #[id number] MEDICAL (GENERAL) HISTORY Medical History History ICD Code Osteoporosis M81.0 Seasonal allergies J30.2 Hiatal hernia K44.9 Osteoarthritis M19.90 GERD (gastroesophageal reflux disease) K 21.9 Surgical History Surgery Date(Month/Year) oral surgery - gum grafting left knee surgery 2014 laser eye surgery - right eye June 29
--- OUTSIDE RECORDS SUMMARY | 2025-01-14 11:34 | XMS_ITS | Encounter Summary ---
Author Organization [facility] Address [address] [place] [address] Care Team Providers Care Kettle Loader Name Role Phone Brigette Garcia MD Primary Care Provider [facility] Dale Cardenas MD Unavailable [phone] Joan Lynn NP Unavailable [phone] Encounter Details Date Type Department Care Team Description 09/14/2022 SCAN Cardio [facility] [address] [facility] [address] [place] [id number] Abstract, Provider Social History Tobacco Use Types [...] on filedocumented in this encounter Care Teams Kettle Loader Relationship Specialty Start Date End Date Brigette Garcia MD PCP - General Internal Medicine 07/25/22 Dale Cardenas MD [address] [facility] [address] [place] [address] Aircraft Inspector Cardiovascular Disease 12/28/23 Joan Lynn NP [address] [place] [address] [address] [place] [address] Cardiology 05/14/24 documented as of this encounter
--- OUTSIDE RECORDS SUMMARY | 2025-01-14 11:34 | XMS_ITS | Encounter Summary ---
Author Organization [facility] Address [address] [place] [address] Care Team Providers Care Engine Designer Name Role Phone Nimo Cerda MD Primary Care Provider [phone] Brigette Garcia MD Primary Care Provider Dale Lawton MD Unavailable [phone] Joan Lynn NP Unavailable [phone] Encounter Details Date Type Department Care Team Description 07/10/2012 Telephone Adult Medicine [address] [id number] Nimo Cerda MD [address] [place] [address] [id number] Social History Tobacco Use Types Packs/Day Years [...] Telephone Encounter - Farheen Manuela López - 07/10/2012 3:09 PM EDT Pt stung by bee on her Thumb Pt has no chest pain or SOB, denies any swelling of the face,lips tongue or mouth, she has no trouble swallowing, her thumb is swollen and red, has nl [facility] Advised home care following the insect bite Protocol. RN reinforced telephone consultation and advice. Reviewed with the patient the signs and symptoms to watch for that would require immediate attention. If symptoms change, worsen or increase in intensity, to call back immediately. Pt to call for any problems documented in this encounter Plan of Treatment Not on file documented as of this encounter Visit Diagnoses Not on filedocumented in this encounter Care Teams Engine Designer Relationship Specialty Start Date End Date Nimo Cerda MD [address] [place] [id number] PCP - General 01/02/1998 07/24/22 Brigette Garcia MD [address] [place] [phone] PCP - General Internal Medicine 07/25/22 Dale Cardenas MD [address] [place] [address] [address] [place] [address] Aquatic Director Cardiovascular Disease 12/28/23 Joan Lynn NP [address] [place] [address] [address] [place] [address] Cardiology 05/14/24 documented as of this encounter
--- OUTSIDE RECORDS SUMMARY | 2025-01-14 11:34 | XMS_ITS ---
Author Organization [employer] [facility] Address [address] [place] [address] Care Team Providers Care Paper Tube Grader Name Role Phone PATRICIA GARCIA Unavailable [phone] PADILLA SIMMSY Unavailable [phone] ALLERGIES Allergen (clinical drug ingredient) Drug/Non Drug Allergy documented on EMR Reaction Allergy Type Onset Date Status meperidine Demerol Unknown Drug Allergy Active doxycycline Doxycycline Unknown Drug Allergy Act rob REASON FOR VISIT Patient presents for follow up. MEDICATIONS Medication SIG (Take, Route, Frequency, Duration) [...] 90 DAYS for 90 Active Calcium Active Eflswdyz-Djhmanhth-Mkhptsm h 3.5-66728-2.1 1 application into the lower eyelid of affected eye Ophthalmic Three times a day for 7 days 01/08/2025 Active Multivitamin Active Aspir-Low Active amLODIPine Besylate 2.5 MG 1 tablet Oral ly Once a day for 90 days Active PROBLEMS Problem Type ICD Code Onset Dates Problem Status W/U Status Risk SNOMED Code Notes Problem Age-related osteoporosis without current pathological fracture (M81.0) Active confirmed 01562285 VITAL SIGNS Blood pressure systolic 134 mm Hg 01/09/20 25 Blood pressure diastolic 84 mm Hg 025 Heart Rate 76 /min 01/08/2025 Height 60 in 01/08/2025 Weight 148.5 lbs 01/08/2025 BMI 29 kg/m2 01/08/2025 Oximetry 97 % 01/08/2025 Encounters Encounter Location Date Provider Diagnosis [facility] [address] [place] [address] 01/08/2025 YOBANY SIMMS Elevated lipids E78. 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 Patient will contact blind eyeletter. Allergic to doxycycline therefore we will try [...] unable to get in with her own blind eyeletter, could consider referral to Dr. Esqueda. Patient [...] Dictation was accomplished with the use of [employer] voice recognition software, prone to medical misidentifications and grammatical errors. This is unintentional and the practitioner does try to identify and correct these, but some could still be present. Please do not hesitate to contact practitioner for clarification. 01/08/2025 Age-related osteoporosis without current pathological fracture (ICD-10 - M81.0) # Stye/blepharitis of the right eye. Patient will contact blind eyeletter. Allergic to doxycycline therefore we will try [...] unable to get in with her own blind eyeletter, could consider referral to Dr. Esqueda. Patient [...] Dictation was accomplished with the use of [employer] voice recognition software, prone to medical misidentifications and grammatical errors. This is unintentional and the practitioner does try to identify and correct these, but some could still be present. Please do not hesitate to contact practitioner for clarification. 01/08/2025 Seasonal allergies (ICD-10 - J30.2) # Stye/blepharitis of the right eye. Patient will contact blind eyeletter. Allergic to doxycycline therefore we will try [...] unable to get in with her own blind eyeletter, could consider referral to Dr. Esqueda. Patient [...] Dictation was accomplished with the use of [employer] voice recognition software, prone to medical misidentifications and grammatical errors. This is unintentional and the practitioner does try to identify and correct these, but some could still be present. Please do not hesitate to contact practitioner for clarification. 01/08/2025 Vitamin D deficiency (ICD-10 - E55.9) # Stye/blepharitis of the right eye. Patient will contact blind eyeletter. Allergic to doxycycline therefore we will try [...] unable to get in with her own blind eyeletter, could consider referral to Dr. Esqueda. Patient [...] Dictation was accomplished with the use of [employer] voice recognition software, prone to medical misidentifications and grammatical errors. This is unintentional and the practitioner does try to identify and correct these, but some could still be present. Please do not hesitate to contact practitioner for clarification. 01/08/2025 Essential hypertension (ICD-10 - I10) # Stye/blepharitis of the right eye. Patient will contact blind eyeletter. Allergic to doxycycline therefore we will try [...] unable to get in with her own blind eyeletter, could consider referral to Dr. Esqueda. Patient [...] Dictation was accomplished with the use of [employer] voice recognition software, prone to medical misidentifications and grammatical errors. This is unintentional and the practitioner does try to identify and correct these, but some could still be present. Please do not hesitate to contact practitioner for clarification. 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 Patient will contact blind eyeletter. Allergic to doxycycline therefore we will try [...] unable to get in with her own blind eyeletter, could consider referral to Dr. Esqueda. Patient [...] Dictation was accomplished with the use of [employer] voice recognition software, prone to medical misidentifications and grammatical errors. This is unintentional and the practitioner does try to identify and correct these, but some could still be present. Please do not hesitate to contact practitioner for clarification. 01/08/2025 Hordeolum externum of right upper eyelid (ICD-10 - H00.011) # Stye/blepharitis of the right eye. Patient will contact blind eyeletter. Allergic to doxycycline therefore we will try [...] unable to get in with her own blind eyeletter, could consider referral to Dr. Esqueda. Patient [...] Dictation was accomplished with the use of [employer] voice recognition software, prone to medical misidentifications and grammatical errors. This is unintentional and the practitioner does try to identify and correct these, but some could still be present. Please do not hesitate to contact practitioner for clarification. PLAN OF TREATMENT Medication Medication Name Sig Start Date Stop Date Notes Azithromycin 250 MG two tablets day 1, o ne tablet day 2-5 Orally daily for 5 days 01/08/2025 Uctnqqoj-Zwlgrbfxh-Ygnnfgel 3.5-31013-1.1 1 application into the lower eyelid of affected eye Ophthalmic Three times a day for 7 days 01/08/2025 Pending Test Test Name Order Date LIPID PANEL, STANDARD 01/08/2025 COMPREHENSIVE METABOLIC PANEL 01/08/2025 CBC (INCLUDES DIFF/PLT) 01/08/2025 URINALYSIS, COMPLETE 01/08/2025 HEMOGLOBIN A1c 01/08/2025 VITAMIN D,25-OH,TOTAL,IA 01/08/2025 Next Appt Details Provider Name:YOBANY SIMMS, 03/31/2025 11:15:00 AM, [address], [place], [address], MEDICATIONS ADMINISTERED Medication Instructions Date of Administration Dosage Notes Prolia 01/08/2025 1 mL LOT #[id number] Progress Notes * Izzy HALEDOB:1955 (69 yo F)Acc No.[id number]:01/08/2025 Progress Notes Patient:??Izzy HALE Provider:??YOBANY RACHEL PA-C :1955?Age:69 Y?Sex:Fe male Date:01/08/2025 [address] [id number] Subjective: * Chief Complaints: * ?1. Patient presents fo r follow up.. * HPI: ?Constitutional:? Izzy is a pleasant 69-year-old female who presents the office for follow-up visit. Past medical history includes osteoporosis, seasonal allergies, hiatal hernia, osteoarthritis, and GERD. Medication reconciliation completed today, patient's blood pressure stable.Had Prolia in June, due now. ?Taken today without any concern. Will follow-up in March for complete physical with labs. Is also doing a life screening, through a program in [place], for preventative medicine and will give us results as update. ?Does have 1 acute concern today, a stye in her right eye, that has been draining pus, with some vision changes. Has had a stye lanced in the past. Is been going on for 4 days. He has been using washes, and cold compresses. Does admit to some improved swelling, but is having Discomfort. No contacts. * ROS:?Constitutional: Patient denies any excessive fatigue with exercise, no weight loss, no fever and no night sweats ???Eyes: + eye discharge, no itching, + redness. Advised the significance of regular eye exams to screen for glaucoma and other eye problems ???Ear nose throat: no sore throat, postnasal drip, runny nose, Sneezing ???Cardiovascular: No chest pain, no shortness of breath, no dyspnea on exertion, no PND, no orthopnea, no irregular pulse ???Respiratory: No chronic cough, no hemoptysis, no sputum, no wheezing ???GI, no diarrhea, no constipation no blood in the stools, no pain associated with eating, no indigestion ???Genitourinary: No painful urination no hesitancy no blood in the urine ???Musculoskeletal,+ right clavicular discomfort, +no limitations to walking and running, +Tenderness behind right knee,no joint deformity, no joint stiffness, no chronic back pain, no noise with joint movement ???Integumentary, no new skin rash. No new changes in skin moles ???Neurological: No history of seizures, memory loss, No language dysfunction, No inability to concentrate, no localized weakness, no sensation loss, no confusion ???Psychiatric: No depression, no suicidal thoughts, no anxiety ???Endocrine: No polyuria no polyphagia or polydipsia, no heat intolerance no cold intolerance ???Hematological: No easy bruising or Lymph node swelling. * Medical History:??Osteoporos is, Seasonal allergies, Hiatal hernia, Osteoarthritis, GERD (gastroesophageal reflux disease). * Surgical History:??oral surg pepper - gum grafting , left knee surgery 2014, laser eye surgery - right eye June 2023. * Hospitalization/Major Diagno stic Procedure:??Denies Past Hospitalization. * Family History:??Father: dec eased.??Mother: .??1 sister(s) . 1 son(s) , 1 daughter(s) . .?? mom multimyloma dad heart attack and colon cancer. * Social History:?Alcohol: Declines ???Tobacco: Declines. * Medications:??Taking Calcium , Taking amLODIPine Besylate 2.5 MG Tablet 1 tablet Orally Once a day , Taking Aspir-Low , Taking Multivitamin , Taking Losartan Potassium-HCTZ 50-12.5 MG Tablet TAKE 1 TABLET BY MOUTH EVERY DAY FOR 90 DAYS , Taking Prolia 60 MG/ML Solution Prefilled Syringe 60 mg Subcutaneous every 6 months * Allergies:??Doxycycline, Dem sreekanth. Objective: * Vitals:??HR:76/min, BP:134/8 4mm Hg, Wt:148.5lbs, BMI:29Index, Ht: 60 in, Oxygen sat %:97%. * Physical Examination:?General: Age appropriate female, well appearing, no acute distress, speaking in full sentences without respiratory compromise. Well groomed, well developed. Alert, Interactive. ?Skin: Warm, dry and intact. No lesions/rashes/erythema. ?HEENT: Normocephalic/atraumatic. EOMI intact. PERRLA. Vision intact. No ptosis or lid lag. Crusting lesion with erythematous mass above right eyelid consistent with stye/blepharitis Nares without discharge or inflammation. Oral cavity free of plaques or exudates. Dentition well maintained. No pharyngeal erythema. Ear canal without cerumen or discharge. Tympanic membrane visualized including bony structures and cone of light. ?Neck/Thyroid: Supple, with no lymphadenopathy. Full ROM. Thyroid free of nodules and nonenlarged. ?Lung: Clear to auscultation bilaterally, no wheezes, rales or rhonchi. No barrel chest. Equal chest rise and fall bilaterally. ?Cardiac: S1 and S2 appreciated. No murmurs/rubs or gallops. ?Neuro: CN II-XI grossly intact. Steady gait with ambulation observed. ?Psych: Stable mood and affect. 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 # Stye/blepharitis of the ri ght eye. Patient will contact blind eyeletter. Allergic to doxycycline therefore we will try [...] unable to get in with her own blind eyeletter, could consider referral to Dr. Esqueda. Patient [...] Dictation was accomplished with the use of [employer] voice recognition software, prone to medical misidentifications and grammatical errors. This is unintentional and the practitioner does try to identify and correct these, but some could still be present. Please do not hesitate to contact practitioner for clarification. Plan: * Treatment: * Therapeutic Injections:? Prolia : 1 mL (Route: Intramuscular) given by LUIS ARMANDO HOANG on left deltoid * Labs:?? * ?Lab: HEMOGLOBIN A1 c ?Lab: VITAMIN D,25- OH,TOTAL,IA ?Lab: URINALYSIS, C OMPLETE ?Lab: COMPREHENSIVE METABOLIC PANEL ?Lab: CBC (INCLUDES DIFF/PLT) ?Lab: LIPID PANEL, STANDARD * Procedure Codes:??J0897 INJE CTION DENOSUMAB 1 MG, 51676 THER/PROPH/DIAG INJ, SC/IM * Images: Billing Information: * Visit Code:?? 31964 Office Visit, Est Pt., Level 4. Modifiers: SA * Procedure Codes:?? J0897 INJECTION DENOSUMAB 1 MG. 29794 THER/PROPH/DIAG INJ, SC/IM. Care Plan Details* * Sign off status: Completed true * Provider:??YOBANY RACHEL PA-C Date:??09/2024 History and Physical Notes * HPI (History of Present Illness) Category Sub-Category Detail Notes Category Not es Constitutional Izzy is a pleasant 69-year-old female who presents the office for follow-up visit. Past medical history includes osteoporosis, seasonal allergies, hiatal hernia, osteoarthritis, and GERD. Medication reconciliation completed today, patient's blood pressure stable.Had Prolia in June, due now. Taken today without any concern. Will follow-up in March for complete physical with labs. Is also doing a life screening, through a program in [place], for preventative medicine and will give us results as update. Does have 1 acute concern today, a stye in her right eye, that has been draining pus, with some vision changes. Has had a stye lanced in the past. Is been going on for 4 days. He has been using washes, and cold compresses. Does admit to some improved swelling, but is having Discomfort. No contacts. Physical Examination Category Sub-Category Detail Notes Section Note s General: Age appropriate female, well appearing, no acute distress, speaking in full sentences without respiratory compromise. Well groomed, well developed. Alert, Interactive. Skin: Warm, dry and intact. No lesions/rashes/erythema. HEENT: Normocephalic/atraumatic. EOMI intact. PERRLA. Vision intact. No ptosis or lid lag. Crusting lesion with erythematous mass above right eyelid consistent with stye/blepharitis Nares without discharge or inflammation. Oral cavity free of plaques or exudates. Dentition well maintained. No pharyngeal erythema. Ear canal without cerumen or discharge. Tympanic membrane visualized including bony structures and cone of light. Neck/Thyroid: Supple, with no lymphadenopathy. Full ROM. Thyroid free of nodules and nonenlarged. Lung: Clear to auscultation bilaterally, no wheezes, rales or rhonchi. No barrel chest. Equal chest rise and fall bilaterally. Cardiac: S1 and S2 appreciated. No murmurs/rubs or gallops. Neuro: CN II-XI grossly intact. Steady gait with ambulation observed. Psych: Stable mood and affect
--- OUTSIDE RECORDS SUMMARY | 2025-01-14 11:34 | XMS_ITS | Clinical Summary ---
Author Organization [facility] Address [address] [place] [address] Phone Care Team Providers Care Pilot Steam Yacht Name Role Phone Patricia Garcia MD Primary Care Provider [phone] Allergies Active Allergy Reactions Criticality Noted Date Comments Meperidine Shortness of breath High 07/28/2024 Doxycycline Hives High 07/28/2024 Severe itchin Medications amLODIPine (NORVASC) 5 mg tablet Take by mouth 1 (one) time each day. Active losartan-hydroCH LOROthiazide (HYZAAR) 50-12.5 mg per tablet Take 1 tablet by mouth 1 (one) time each day. Active denosumab (Prolia) 60 mg/mL syringe syringe Inject 1 mL (60 mg total) under the skin 1 (one) time. Every 6 mth Active aspirin 81 mg EC tablet Take 1 tablet (81 mg total) by mouth 1 (one) time each day. Active Surgical History Surgery Date Site/Laterality Comments OTHER SURGICAL HISTORY PROCEDURE: ---- OTHER ----; COMMENT: gum surgery COLONOSCOPY 2013 PROCEDURE: HISTORICAL COLONOSCOPY; COMMENT: no polyps COLONOSCOPY 2002 PROCEDURE: HISTORICAL COLONOSCOPY; COMMENT: no polyps COLONOSCOPY 01/18/2021 PROCEDURE: HISTORICAL COLONOSCOPY; COMMENT: Minimal diverticulosis, no polyps. Repeat in 10 years. Medical History Medical History Date Comments Senile osteoporosis 09/06/2006 DX:Senile os teoporosis Chest pain, unspecified 05/15/2007 DX:Chest pain, unspecified; COMMENT: ETT (-) 2004 Family History Medical History Relation Name Comments Colon cancer Father Heart attack Father at age 75 Other cancer Father Multiple myeloma Mother 75 Other: neg breast Other 1 Other: neg ovarian Other 2 No Known Problems Sister Rajani Breast cancer Neg Hx Ovarian cancer Neg Hx Pancreatic cancer Neg Hx Prostate cancer Neg Hx Uterine cancer Neg Hx Relation Name Status Comments Father (Age 75) Mother (Age 75) Other 1 Other 2 Sister Rajani Alive Social History Tobacco Use Types Packs/Day Years Used Date Smoking Tobacco: Never Smokeless Tobacco: Never Alcohol Use Standard Drinks/Week Comments Yes 7 (1 standard drink = 0.6 oz pur e alcohol) Comments No Sex and Gender Information Value Date Recorded Sex Assigned at Female 07/30/2024 9:35 AM EST Legal Sex Female 1:23 PM EST Gender Identity Female 07/30/2024 9:35 AM EST Sexual Orientation Straight 07/30/2024 9: 35 AM EST Obstetrics History Para Term AB IAB SAB Ectopic Multiple Livin g Live Births 2 2 2 2 Date Outcome GA Total Labor Labor/2nd/3rd Weight Sex Type Anes PTL Jen A1 A5 Name Clin Term Term Last Filed Vital Signs Vital Sign Reading Time Taken Comments Blood Pressure 122/76 07/28/2024 10:13 AM EST Pulse 68 07/28/2024 10:13 AM EST Temperature 36.5 ??C (97.7 ??F) 07/28/2024 10:[address] Respiratory Rate 16 07/28/2024 10:13 AM EST Oxygen Saturation 97% 07/28/2024 10:13 AM EST Inhaled Oxygen Concentration - - Weight 66.3 kg (146 lb 3.2 oz) 07/28/2024 10:13 AM EST Height 152.4 cm (5') 07/28/2024 10:13 AM EST Body Mass Index 28.55 07/28/2024 10:13 AM EST Plan of Treatment Upcoming Encounters Date Type Department Care Team (Late st Contact Info) Description 01/27/2025 9:45 AM EDT Office Visit Pulmonolgy - [place] [address] [facility] [address] [place] [address] Casey Guerra MD [address] [facility] [address] [place] [address] Health Maintenance Due Date Last Done Comments Cervical Cancer Screening: HPV 1978 Pneumococcal Vaccine: 50+ Years (1 of 1 - PCV) 11/11/2007 Zoster Vaccines (1 of 2) 11/11/2007 Cholesterol Screening (Lipid Panel) 08/19/2022 Colorectal Cancer Screening: Colonoscopy 08/19/2022 Depression Screening 08/19/2022 Hepatitis C Screening 08/19/2022 Medicare Annual Wellness Visit 08/19/2022 Social Influencers of Health Screening 08/19/2022 Falls Risk Assessment 2022 Hypertension/CHF/CAD Annual BMP Blood Test 04/04/2024 COVID-19 Vaccine ( season) 2024 03/17/2022, 08/19/2021, 12/07/2020, Additional history exists Influenza Vaccine (Season Ended) 2025 08/23/2023, 07/24/2022, 07/29/2021 Breast Cancer Screening 08/11/2026 08/11/20 24, 07/30/2023, 07/25/2022, Additional history exists DTaP,Tdap,and Td Vaccines (3 - Td or Tdap) 01/02/2029 01/02/2019, 05/15/2007 RSV Immunization Adult Patients (1 - 1-dose 75+ series) 2032 Osteoporosis Screening (Bone Density Screening) 02/07/2034 02/08/2024, 01/23/2023, 01/10/2021, Additional history exists HIB Vaccines Aged Out No longer eligi ble based on patient's age to complete this topic HPV Vaccines Aged Out No longer eligi ble based on patient's age to complete this topic Hepatitis A Vaccines Aged Out No long er eligible based on patient's age to complete this topic Hepatitis B Vaccines Aged Out No long er eligible based on patient's age to complete this topic IPV Vaccines Aged Out No longer eligi ble based on patient's age to complete this topic MMR Vaccines Aged Out No longer eligi ble based on patient's age to complete this topic Meningococcal ACWY Vaccine Aged Out N o longer eligible based on patient's age to complete this topic Meningococcal B Vaccine Aged Out No l onger eligible based on patient's age to complete this topic RSV Immunization Patients Under 20 months Aged Out No longer eligible based on patient's age to complete this topic Varicella Vaccines Aged Out No longer eligible based on patient's age to complete this topic Procedures Procedure Name Priority Date/Time Associated Diagnosis Comments MG MAMMO DIGITAL SCREENING W SAM BILAT Routine 08/11/2024 8:14 AM EST Encounter for screening mammogram for breast cancer TRISTAN DEXA AXIAL SKELETON Routine 02/08/2024 10:10 AM EDT from Last 3 Months or Most Recently Relevant to Health Maintenance Results * MG Mammo Digital Screening w Sam bilat (08/11/2024 8:14 AM EST) Anatomical Region Laterality Modality Breast Bilateral Mammography 08/11/2024 3:10 PM EST Impressions 08/11/2024 3:12 PM EST Stable mammographic appearance of the breasts. ??No evidence of malignancy is seen. A negative mammogram in the presence of a clinically suspicious palpable abnormality does not preclude the possibility of malignancy or alter the indications for biopsy. BI-RADS: ??Category 1: Negative RECOMMENDATION(S): 1: Routine screening mammogram BILATERAL in 1 year. Mammo Location: [facility], [address] [place] [address], [id number], . -------- FINAL REPORT -------- Dictated By: Monique Nunez Dictated Date: 08/11/2024 15:10 ET Assigned Physician: Monique Nunez Reviewed and Electronically Signed By: Monique Nunez Signed Date: 08/11/2024 15:12 ET Workstation ID: [id number] Transcribed By: Self Edit Transcribed Date: 08/11/2024 15:10 ET Narrative 08/11/2024 3:12 PM EST EXAM: MG MAMMO DIGITAL SCREENING W SAM BILAT EXAM DATE: 08/11/2024 8:03 AM HISTORY: ??Breast cancer screen, avg risk, asymptomatic (Age => 40y) COMPARISON: Mammograms dating back to 05/25/2020 with most recent of 07/30/2023. TECHNIQUE: Bilateral digital breast tomosynthesis was performed in the CC and MLO projections. Computer aided detection with 28msec 3D 3.1 was employed. TISSUE DENSITY: b. There are scattered areas of fibroglandular density. FINDINGS: No suspicious masses, grouped microcalcifications, or areas of architectural distortion are seen. The skin and vascularity are unremarkable. Procedure Note Monique Nunez MD - 08/11/2024 EXAM: MG MAMMO DIGITAL SCREENING W SAM BILAT EXAM DATE: 08/11/2024 8:03 AM HISTORY: Breast cancer screen, avg risk, asymptomatic (Age => 40y) COMPARISON: Mammograms dating back to 05/25/2020 with most recent of07/30/2023. TECHNIQUE: Bilateral digital breast tomosynthesis was performed in the CCand MLO projections. Computer aided detection with 28msec 3D 3.1was employed. TISSUE DENSITY: b. There are scattered areas of fibroglandular density. FINDINGS: No suspicious masses, grouped microcalcifications, or areas ofarchitectural distortion are seen. The skin and vascularity areunremarkable. IMPRESSION: Stable mammographic appearance of the breasts. No evidence of malignancyis seen. A negative mammogram in the presence of a clinically suspicious palpableabnormality does not preclude the possibility of malignancy or alter theindications for biopsy. BI-RADS: Category 1: Negative RECOMMENDATION(S): 1: Routine screening mammogram BILATERAL in 1 year. Mammo Location: [facility], [address] [place] [address], [id number], . -------- FINAL REPORT -------- Dictated By: Monique Nunez Dictated Date: 08/11/2024 15:10 ET Assigned Physician: Monique Nunez Reviewed and Electronically Signed By: Monique Nunez Signed Date: 08/11/2024 15:12 ET Workstation ID: [id number] Transcribed By: Self Edit Transcribed Date: 08/11/2024 15:10 ET Patricia Garcia MD IMG BI PROCEDURES Final Result * TRISTAN DEXA AXIAL SKELETON (02/08/2024 10:10 AM EDT) Anatomical Region Laterality Modality Mammography 02/08/2024 9:01 AM EDT Narrative 02/08/2024 10:10 AM EDT [facility] Diagnostic Imaging Department [address] [place] [address] Patient: ??IZZY HALE ?/Age/Sex: 1955 Unit#: ??[id number] ? Location/Status: ??SPDIMAM/REG CLI ? Mnemonic/Ordering Site: ??MAMDEXAAX/SPMAM Ordering Physician: ??PATRICIA GARCIA MD Tristan Dexa Axial Skeleton - 02/08/24929 Report Status:Signed HISTORY: ??The patient is a 68-year-old postmenopausal female with clinical concern for metabolic bone disease. FINDINGS: ??Dual energy x-ray absorptiometry of the lumbar spine and femurs is performed. The mean bone mineral density at L1-L4 is 0.809 gm/cm2 which is 69% of that of young normals and 82% of that of age matched controls. This yields a T-score of -3.1 and a Z-score of -1.4 which is diagnostic of osteoporosis. The mean bone mineral density of the femurs bilaterally is 0.0 gm/cm2 which is 88% of that of young normals and 105% of that of age matched controls. ??This yields a T-score of -0.9 and a Z-score of 0.4 and there is therefore no evidence of osteoporosis or osteopenia here. ??However, the T-score of the right femoral neck is -1.9 and that of the left femoral neck is -2.0 which is diagnostic of osteopenia. IMPRESSION: 1. Osteoporosis. ??There has been a decrease of 4.8% in bone mineral density in the lumbar spine since the prior examination of 01/23/2023. ??There has been a decrease of 2.8% in bone mineral density in the right femur and a decrease of 0.8% in bone mineral density in the left femur. 2. FRAX analysis yields a 10-year probability of major osteoporotic fracture of 10.6% and a 10-year probability of hip fracture of 1.6%. Code [address]272 CT Teleradiology Dictating Physician: ??LUIS SONG MD Electronically Signed by: ??LUIS SONG MD Dic Date/Time: ??02/08/24 1005 Sign date/Time: ??02/08/24 1010 Procedure Note Luis Song MD - 04/28/2024 [facility] Diagnostic Imaging Department [address] [place] [address] Patient: IZZY HALE Jose Manuel /Age/Sex: 1955 - 68 - F Unit#: [id number] Location/Status: [facility] CLI [facility] Ordering Physician: PATRICIA GARCIA MD Tristan Dexa Axial Skeleton - 02/08/24929 Report Status:Signed HISTORY: The patient is a 68-year-old postmenopausal female withclinical concern for metabolic bone disease. FINDINGS: Dual energy x-ray absorptiometry of the lumbar spine and femursis performed. The mean bone mineral density at L1-L4 is 0.809 gm/cm2 which is69% of that of young normals and 82% of that of age matched controls. Thisyields a T-score of -3.1 and a Z-score of -1.4 which is diagnostic ofosteoporosis. The mean bone mineral density of the femurs bilaterally is 0.0 gm/rj8ydwzm is 88% of that of young normals and 105% of that of age matched controls.This yields a T-score of -0.9 and a Z-score of 0.4 and there is therefore noevidence of osteoporosis or osteopenia here. However, the T-score of the rightfemoral neck is -1.9 and that of the left femoral neck is -2.0 which is diagnosticof osteopenia. IMPRESSION: 1. Osteoporosis. There has been a decrease of 4.8% in bone mineraldensity in the lumbar spine since the prior examination of 01/23/2023. There has bobby decrease of 2.8% in bone mineral density in the right femur and a decreaseof 0.8% in bone mineral density in the left femur. 2. FRAX analysis yields a 10-year probability of major osteoporoticfracture of 10.6% and a 10-year probability of hip fracture of 1.6%. Code [address]223 CT Teleradiology Dictating Physician: ULIS SONG MD Electronically Signed by: LUIS SONG MD Dic Date/Time: 02/08/24 1005 Sign date/Time: 02/08/24 1010 Patricia Garcia MD IMG BI PROCEDURES Final Result from Last 3 Months or Most Recently Relevant to Health Maintenance Insurance MEDICARE UNICARE Care Teams Pilot Steam Yacht Relationship Specialty Start Date End Date Patricia Garcia MD [address] [place] [address] [place]ICK [address] PCP - General Internal Medicine 09/30/24
--- OUTSIDE RECORDS SUMMARY | 2025-01-14 11:34 | XMS_ITS ---
Author Organization [facility] Address [address] [place] [address] Care Team Providers Care Engineering Technician Parking Name Role Phone PATRICIA STEWARD Unavailable [phone] REASON FOR VISIT CCM - medication compliance Encounters Encounter Location Date Provider Diagnosis [facility] [address] [place] [phone] 01/07/2025 PATRICIA STEWARD PLAN OF TREATMENT Next Appt Details Provider Name:YOBANY SIMMS, 03/31/2025 11:15:00 AM, [address], [place], [address], Progress Notes * Izzy HALEDOB:1955 (69 yo F)Acc No.[id number]:01/07/2025 Patient:??Izzy HALE :1955?Age:69 Y?Sex:Fe male Address:[address], [place] [address] * true * Date:??
--- OUTSIDE RECORDS SUMMARY | 2025-01-14 11:34 | XMS_ITS | Encounter Summary ---
Author Organization [facility] Address [address] [place] [address] Care Team Providers Care Finished Yarn Examiner Name Role Phone Nimo Cerda MD Primary Care Provider [phone] Brigette Garcia MD Primary Care Provider Dale Lawton MD Unavailable [phone] Joan Lynn ELECTRICAL CONTROLS TECHNICIAN Unavailable [phone] Encounter Details Date Type Department Care Team Description 11/28/2018 Crusher Machine Operator Report Medical Records [address] [place] [id number] Flex Marrufo MD Social History Tobacco Use Types Packs/Day [...] on filedocumented in this encounter Care Teams Finished Yarn Examiner Relationship Specialty Start Date End Date Nimo Cerda MD [address] [place] [address] PCP - General 01/02/1998 07/24/22 Brigette Garcia MD [address] [place] [address] PCP - General Internal Medicine 07/25/22 Dale Cardenas MD [address] [place] [address] [place] [address] Plywood Scarfer Tender Cardiovascular Disease 12/28/23 Joan Lynn NP [address] [place] [address] [address] [place] [address] Cardiology 05/14/24 documented as of this encounter
== END 2025-01-14 11:06 | disposition home or self-care (01) ==
LOC: HO.PMC 10:18
PROVIDERS: PCP Internal Medicine; Referring Provider Orthopaedic Surgery; Visit Provider Internal Medicine
DX: M25.562 Pain in left knee (principal); M25.561 Pain in right knee
CPT/HCPCS: 99204

== ENCOUNTER → 2025-01-14 10:18 | Outpatient (BNVA) | payer MEDICARE, OTHER, SELFPAY | PROVIDERS: PCP Internal Medicine; Referring Provider Orthopaedic Surgery; Visit Provider Internal Medicine | DX: M25.562 Pain in left knee (principal); M25.561 Pain in right knee | CPT/HCPCS: 99202 ==

== ENCOUNTER 2025-01-21 18:10 | Outpatient (REF) | payer MEDICARE, OTHER, SELFPAY ==
--- NOTE | ~2025-01-21 | MR_ITS ---
EXAMINATION: MRI RIGHT KNEE WITHOUT CONTRAST HISTORY: M25.561 - Pain in right knee COMPARISON: Correlation is made with plain films of the right knee dated 01/16/2024. TECHNIQUE: Coronal T1 and fat-suppressed proton density, sagittal proton density and fat-suppressed proton density, and axial fat suppressed T2 weighted MR images of the right knee were obtained. FINDINGS: Bone marrow: Bone marrow signal intensity is normal. Joint effusion: There is no significant joint effusion. Quinones's cyst: There is no Quinones's cyst. Articular cartilage: There is severe osteoarthritis of the medial compartment with cartilage loss, osteophyte formation, and subchondral marrow changes. There is mild osteoarthritis of the patellofemoral compartment with osteophyte formation. Muscles/soft tissues: The visualized muscles demonstrate normal signal intensity. Anterior cruciate ligament: There is attenuation of the anterior cruciate ligament at its insertion on the tibia. Findings may represent a partial tear. Posterior cruciate ligament: Intact Medial collateral ligament: Intact Lateral collateral ligament: Intact Medial meniscus: There is partial extrusion of the body of the medial meniscus. The body and posterior horn are diminutive in size and irregular in shape, likely representing a degenerative tear. Lateral meniscus: There is a small focus of increased signal intensity in the anterior horn which contacts the superior joint surface consistent with a tear (series 12, image 15). The body and posterior horn are intact. Flexor mechanism: The popliteus, gastrocnemius, and hamstring tendons are intact. Quadriceps tendon: Intact Patellar tendon: Intact Patellar retinacula: Intact MR/MR knee RT wo con IMPRESSION: 1. Severe osteoarthritis of the medial compartment. Mild osteoarthritis of the patellofemoral compartment. 2. Attenuation of the distal ACL which may indicate a partial tear. 3. Degenerative tear of the body and posterior horn of the medial meniscus. 4. Small tear of the anterior horn of the lateral meniscus. Electronically signed by: Aly Curtis MD 01/22/2025 09:22 AM EDT
--- NOTE | ~2025-01-21 | MR_ITS ---
EXAMINATION: MRI LEFT KNEE WITHOUT CONTRAST HISTORY: M25.562 - Pain in left knee COMPARISON: Correlation is made to plain films of the left knee dated 01/16/2024. TECHNIQUE: Coronal T1 and fat-suppressed proton density, sagittal proton density and fat-suppressed proton density, and axial fat suppressed T2 weighted MR images of the left knee were obtained. FINDINGS: Bone marrow: Bone marrow signal intensity is normal. Joint effusion: There is a small suprapatellar joint effusion. Quinones's cyst: There is no Quinones's cyst. Articular cartilage: There is severe osteoarthritis of the medial compartment, with cartilage loss, osteophyte formation, and subchondral marrow changes. There is mild spurring at the superior and inferior patellar poles. Muscles/soft tissues: The visualized muscles demonstrate normal signal intensity. Anterior cruciate ligament: There is attenuation of the anterior cruciate ligament distally, suggestive of a partial tear. Posterior cruciate ligament: Intact Medial collateral ligament: Intact Lateral collateral ligament: Intact Medial meniscus: There is partial extrusion of the body of the medial meniscus. There are multiple foci of linear increased T2 signal intensity within the body and posterior horn of the medial meniscus which are irregular in shape, consistent with a degenerative tear. The anterior horn of the medial meniscus is intact. Lateral meniscus: There is blunting of the anterior horn of the lateral meniscus consistent with a tear. The posterior horn of the lateral meniscus is intact. Flexor mechanism: The popliteus, gastrocnemius, and hamstring tendons are intact. Quadriceps tendon: Intact Patellar tendon: Intact Patellar retinacula: Intact MR/MR knee LT wo con IMPRESSION: 1. Severe osteoarthritis of the medial compartment. Mild osteoarthritis of the patellofemoral compartment. 2. Attenuation of the distal ACL, suggestive of a partial tear. 3. Degenerative tear of the body and posterior horn of the medial meniscus. 4. Blunting of the anterior horn of the lateral meniscus, current tear. Electronically signed by: Aly Curtis MD 01/22/2025 09:30 AM EDT
--- OUTSIDE RECORDS SUMMARY | 2025-01-21 18:12 | XMS_ITS | Patient Health Record ---
Author Organization [facility] Address [address] [place] [address] Care Team Providers Care Optoelectronic Technician Name Role Phone PATRICIA GARCIA Unavailable [phone] SIMMSYOBANY NAVAS Unavailable [phone] BENTLEY LAUREANO Unavailable [phone] Allergies Allergen (clinical drug ingredient) Drug/Non Drug Allergy documented on EMR Reaction Allergy Type Onset Date Status meperidine Demerol Unknown Drug Allergy Active doxycycline Doxycycline Unknown Drug Allergy Act rob Results Component Value Reference Range Notes D-DIMER Reviewed date:07/29/2024 08:16:15 AM Interpretation: Performing Lab: Notes/Report: D-Dimer <230 ng/mL (D-Dimer units) is the threshold for exclusion of DVT/PE. D-Dimer may be elevated in: Critically ill, severely infected, trauma patients, DIC, acute CVA, acute WI, unstable angina, AF, old age, , and smoking. D-Dimer may be decreased with: Initiation of heparin therapy and oral anticoagulants. D-Dimer, Quant (D-DU) <150 <=230 ng/mL DDU Comp. Metabolic Panel (14)-3 Reviewed date:10/05/2024 07:16:50 PM Interpretation: Performing Lab:[facility], [address] [facility], [place], Phone - [phone], Director - [place] Notes/Report: Glucose 95 70-99 mg/dL BUN 16 [...] 0-40 IU/L ALT (SGPT) 17 0-32 IU/L Lipid Panel-[id number] Reviewed date:10/05/2024 07:09:56 PM Interpretation: Performing Lab:[facility] [place], [address] [facility], Phone - [phone], Director - [place] Notes/Report: Cholesterol, Total 176 100-199 mg/dL Triglycerides 54 0-149 mg/dL HDL Cholesterol 73 >39 mg/dL VLDL Cholesterol Ma[place] 11 5-40 mg/dL LDL Chol Calc (NIH) 92 0-99 mg/dL CBC With Differential/Platel et-[id number] Reviewed date:10/05/2024 07:09:56 PM Interpretation: Performing Lab:[facility], [address] [facility], [place], Phone - [phone], Director - MDFrank Notes/Report: WBC 4.3 3.4-10.8 x10E3/uL RBC 5.02 3.77-5.28 x10E6/uL Hemoglobin 14.3 11.1-15.9 g/dL Hematocrit 43.2 34.0-46.6 % MCV 86 79-97 fL MCH 28.5 26.6-33.0 pg MCHC 33.1 31.5-35.7 g/dL RDW 12.4 11.7-15.4 % Platelets 224 150-450 x10E3/uL Neutrophils 55 Not Estab. % Lymphs 34 Not Estab. % Monocytes 8 Not Estab. % Eos 2 Not Estab. % Basos 1 Not Estab. % Neutrophils (Absolute) 2.4 1.4-7.0 x10E3/uL Lymphs (Absolute) 1.4 0.7-3.1 x10E3/uL Monocytes(Absolute) 0.3 0.1-0.9 x10E3/uL Eos (Absolute) 0.1 0.0-0.4 x10E3/uL Baso (Absolute) 0.0 0.0-0.2 x10E3/uL Immature Granulocytes 0 Not Estab. % Immature Grans (Abs) 0.0 0.0-0.1 x10E3/uL Urinalysis, Complete-[id number] Reviewed date:10/05/2024 07:16:40 PM Interpretation: Performing Lab:[facility], [address], [place], Phone - [phone], Director - [place] Notes/Report: Specific [place] 1.009 1.005-1.030 pH 7.5 5.0-7.5 Urine-Color Yellow Yellow Appearance Clear Clear WBC Esterase Trace Negative Protein Negative Negative/Trace Glucose Negative Negative Ketones Negative Negative Occult Blood Negative Negative Bilirubin Negative Negative Urobilinogen,Semi-Qn 0.2 0.2-1.0 mg/dL Nitrite, Urine Negative Negative Microscopic Examination See below: Microscopic was indicated and was performed. WBC None seen 0 - 5 /hpf RBC None seen 0 - 2 /hpf Epithelial Cells (non renal) None seen 0 - 10 /hpf Casts None seen None seen /lpf Bacteria None seen None seen/Few Tristan Dexa Axial Skeleton Reviewed date:02/12/2024 10:49:46 AM Interpretation: Performing Lab: Notes/Report: Original Ordering Provider: PATRICIA GARCIA MD [facility] MG MAMMO DIGITAL SCREENING W KAREY BILAT Reviewed date:08/13/2024 03:00:15 PM Interpretation: Performing Lab: Notes/Report: Note See Note [facility], a member of [employer] Patient Name: IZZY HALE Date of : 1955 Reason for Exam: Breast cancer screen, avg risk, asymptomatic (Age => 42y) Exam Date: 08/11/2024 [id number] EST Report Status: Final Ordering Provider: PATRICIA GARCIA PCP: PATRICIA GARCIA EXAM: MG MAMMO DIGIT AL SCREENING W KAREY BILAT EXAM DATE: 08/11/2024 8:03 AM HISTORY: Breast canc er screen, avg risk, asymptomatic (Age => 42y) COMPARISON: Mammogra ms dating back to 05/25/2020 with most recent of 07/30/2023. TECHNIQUE: Bilateral digital breast tomosynthesis was performed in the CC and MLO projections. Computer aided detection with iCAD ProFound AI 3D 3.1 was employed. TISSUE DENSITY: b. [...] mammogram BILATERAL in 1 year. Mammo Location: [facility], [address] [place] [address], [id number], . -------- FINAL REPOR T -------- Dictated By: Monique Nunez Dictated Date: 08/11 15:10 ET Assigned Physician: Monique Nunez Reviewed and Electronically Signed By: Monique Nunez Signed Date: 15:12 ET Workstation ID: [id number] Transcribed By: Self Edit Transcribed Date: 08/11/2024 15:10 ET LIPID PANEL, STANDARD Reviewed date:03/27/2024 08:07:17 AM Interpretation: Performing Lab:[facility], [place] [address] [place], [place] [address] Annita Cunningham Notes/Report: FASTING:YES FASTING: YES CHOLESTEROL, [...] LDL-C. Klaus BAKER et al. PEG. 2013;310(19): 2939-5012 (http://education.unrival.com/f aq/NHQ411) CHOL/HDLC RATIO 2.8 <5.0 (calc) NON HDL CHOLESTEROL 134 <130 mg/dL (calc) For patients with diabetes plus 1 major ASCVD risk factor, treating to a non-HDL-C goal of <100 mg/dL (LDL-C of <70 mg/dL) is considered a therapeutic option. URINALYSIS, COMPLETE Reviewed date:03/27/2024 08:07:02 AM Interpretation: Performing Lab:[facility], [facility] Annita Cunningham Notes/Report: FASTING:YES FASTING: YES COLOR [...] elements. Only those elements seen were reported. CBC (INCLUDES DIFF/PLT) Reviewed date:03/27/2024 08:06:54 AM Interpretation: Performing Lab:[facility], [facility] Annita Cunningham Notes/Report: FASTING:YES FASTING: YES WHITE BLOOD CELL COUNT 4.7 3.8-10.8 Thousand/uL RED BLOOD CELL COUNT 4.92 3.80-5.10 Million/uL HEMOGLOBIN 14.1 11.7-15.5 g/dL HEMATOCRIT 44.6 35.0-45.0 % MCV 90.7 80.0-100.0 fL MCH 28.7 27.0-33.0 pg MCHC 31.6 32.0-36.0 g/dL RDW 13.3 11.0-15.0 % PLATELET COUNT 255 140-400 Thousand/uL MPV 9.4 7.5-12.5 fL ABSOLUTE NEUTROPHILS 2862 7259-6882 cells/uL ABSOLUTE LYMPHOCYTES 6781 966-3067 cells/uL ABSOLUTE MONOCYTES 277 200-950 cells/uL ABSOLUTE EOSINOPHILS 80 15-500 cells/uL ABSOLUTE BASOPHILS 38 0-200 cells/uL NEUTROPHILS 60.9 LYMPHOCYTES 30.7 MONOCYTES 5.9 EOSINOPHILS 1.7 BASOPHILS 0.8 COMPREHENSIVE METABOLIC PANE L Reviewed date:03/27/2024 08:07:11 AM Interpretation: Performing Lab:[facility], [facility] [address] [facility] Annita Cunningham Notes/Report: FASTING:YES FASTING: YES GLUCOSE [...] 19 10-35 U/L ALT 23 6-29 U/L XR ESOPHAGRAM Reviewed date:10/02/2024 07:57:32 AM Interpretation: Performing Lab: Notes/Report: Note See Note [facility], a member of [employer] Patient Name: IZZY HALE Date of : 1955 Reason for Exam: R09.A2 Exam Date: 10/01/2024 [id number] EST Report Status: Final Ordering Provider: LAUREANO HAGAN PCP: PATRICIA GARCIA FINDINGS: Double con trast esophagram performed. COMPARISON: None HISTORY: Pt complain s of constant need to clear throat, globus sensation, SOB x ~ 1 year, increased frequency of symptoms, rare heartburn- TUMS relieves symptoms, stable wgt, no previous surgery. Store Clerk Cashier radiographs: Frontal view of the chest. Lateral view of the neck Technique: Store Clerk Cashier radiographs: Frontal view of the chest. Lateral view of the neck Gas-forming crystals were administered orally. High density and low density barium administered orally under fluoroscopic control. The patient was exam ined upright and recumbent. Simple provocative maneuvers were performed to assess for the presence of gastroesophageal reflux. A 12.5 mm barium tab let was administered. Findings: Store Clerk Cashier: CHEST: No mediastina l or hilar mass. [...] Signed Date: 025 10:47 ET Workstation ID: [id number] Transcribed By: Self Edit Transcribed Date: 10/01/2024 10:41 ET Reason For Referral Reason please evaluate. Diagnosis 1 Shortness of breath (R06.02) Referral Organization [facility] Referring Provider First Name LAUREANO Referring Provider Last Name BENTLEY Referring Provider Speciality Internal M edicine Referred Provider Specialty Pulmonology Clinical Notes Arabella Will 11/0 04/2024 09:47:09 AM > faxed pt info to dr. Jordan's office. p) [phone] f) [phone], Octavio Tee 08/21/2024 01:42:25 PM > refaxed, Octavio Tee 11/24/2024 02:36:18 PM > refaxed to [phone] Referral Priority Routine Medications Medication SIG (Take, Route, Frequency, Duration) Notes [...] Once a day for 90 days Active Vylvqeri-Dzvqqvkvm-Yljflbz h 3.5-20165-8.1 1 application into the lower eyelid of affected eye Ophthalmic Three times a day for 7 days 01/08/2025 Active Immunizations Vaccine Route Administration Date Status Comme nts SHINGRIX SC Subcutaneous 06/06/2022 Administered SHINGRIX IM Intramuscular 10/19/2022 Administered Problems Problem Type SNOMED Code ICD Code Onset Dates Problem Status W/U Status Risk Notes Problem 22669121 Vitamin D deficiency, unspecified (E55.9) Active confirmed Problem 86869479 Age-related osteoporosis without current pathological fracture (M81.0) Active confirmed Problem Shortness of breath (406754277) Shortness of breath (R06.02) Active confirmed Problem 868052310 Encounter for screening for diabetes mellitus (Z13.1) Active confirmed Problem Type II diabetes mellitus without complication (194841298) Type 2 diabetes mellitus without complications (E11.9) Active confirmed Problem 65782071 Essential hypertension (I10) Active confirmed Problem 10084161 Hyperlipidemia, unspecified hyperlipidemia type (E78.5) Active confirmed Problem 693599254 Annual physical exam (Z00.00) Active confirmed Problem Seasonal allergy (310350667) Seasonal allergies (J30.2) Active confirmed Problem Vitamin D deficiency (45488899) Vitamin D deficiency (E55.9) Active confirmed Problem 49048356 Osteoporosis without current pathological fracture, unspecified osteoporosis type (M81.0) Active confirmed Problem Clavicle pain (486528885) Clavicle pain (M89.8X1) Active confirmed Problem Thrombocytopenic disorder (092998430) Platelets decreased (D69.6) Active confirmed Problem Mass of lower extremity, unspecified laterality (R22.40) Active confirmed Problem Elevated fasting lipid profile (266402195304) Elevated lipids (E78.5) Active confirmed Problem 638803085 Lipid screening (Z13.220) Active confirmed Problem Osteoporosis (25467328) Osteoporosis (M81.0) Active confirmed Problem Gastroesophageal reflux disease (563918148) GERD (gastroesophageal reflux disease) (K21.9) Active confirmed Problem Knee pain (4097574500) Knee pain (M25.569) Active confirmed Problem Osteoarthritis (892867559) Osteoarthritis (M19.90) Active confirmed Problem Globus sensation (893174698) Globus sensation (R09.A2) Active confirmed Vital Signs Heart Rate 76 /min 01/08/2025 Oximetry 97 % 01/08/2025 Blood pressure diastolic 84 mm Hg 01/08/2025 Height 60 in 01/08/2025 Blood pressure systolic 134 mm Hg 01/08/2025 Weight 148.5 lbs 01/08/2025 BMI 29 kg/m2 01/08/2025 Encounters Encounter Location Date Provider Diagnosis [facility] [address] [place] [address] 07/09/2024 TALAL GARCIA Pernicious anemia D51.0 [facility] [address] [place] [address] 04/02/2024 YOBANY SIMMS Hypertension, unspecified type I10 ; Wellness examination Z00.00 ; Osteoporosis without current pathological fracture, unspecified osteoporosis type M81.0 ; Elevated lipids E78.5 ; Shortness of breath R06.02 ; Encounter for screening for depression Z13.31 ; Encounter for screening for other disorder Z13.89 and Other specified counseling Z71.89 [facility] [address] [place] [address] 07/15/2024 LAUREANO BENTLEY Knee pain M25.569 ; Clavicle pain M89.8X1 ; Globus sensation R09.A2 and Essential hypertension I10 [facility] [address] [place] [address] 10/09/2024 YOBANY SIMMS Hypertension, unspecified type I10 ; Osteoporosis without current pathological fracture, unspecified osteoporosis type M81.0 ; Elevated lipids E78.5 ; Shortness of breath R06.02 ; Seasonal allergies J30.2 and Vitamin D deficiency E55.[address] [facility] [address] [place] [address] 01/08/2025 YOBANY SIMMS Elevated lipids E78. 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 and Hordeolum externum of right upper eyelid H00.011 [address] [place] [address] 02/18/[address] [facility] [address] [place] [address] 04/23/[address] [facility] [address] [place] [address] 06/03/[address] [facility] [address] [place] [address] 06/18/[address] [facility] [address] [place] [address] 06/27/[address] [place] [address] 06/30/2024 YOBANY SIMMS [address] [place] [address] 07/22/[address] [place] [address] 08/14/[address] [place] [address] 10/06/[address] [facility] [address] [place] [address] 10/09/[address] [facility] [address] [place] [address] 11/20/[address] [facility] [address] [place] [address] 11/20/2024 YOBANY SIMMS Osteoporosis without current pathological fracture, unspecified osteoporosis type M81.0 [address] [address] 12/24/2024 YOBANY SIMMS [address] [address] 01/07/2025 PATRICIA GARCIA Assessments Encounter Date Diagnosis (ICD Code) Assessment Notes Treatment Notes Treatment Clinical Notes [...] log exercise and discussed fitness Apps like EverTrue which can help keep log off calories [...] Dictation was accomplished with the use of [employer] voice recognition software, prone to medical misidentifications [...] log exercise and discussed fitness Apps like EverTrue which can help keep log off calories [...] Dictation was accomplished with the use of [employer] voice recognition software, prone to medical misidentifications [...] this knee has been bothersome, follows with [place] [facility]. Sustained a cortisone injection back [...] Dictation was accomplished with the use of [employer] voice recognition software, which is prone to [...] this knee has been bothersome, follows with [place] [facility] surgery. Sustained a cortisone injection back [...] Dictation was accomplished with the use of [employer] voice recognition software, which is prone to [...] Dictation was accomplished with the use of [employer] voice recognition software, prone to medical misidentifications [...] Dictation was accomplished with the use of [employer] voice recognition software, prone to medical misidentifications [...] of the right eye. Patient will contact dye room helper. Allergic to doxycycline therefore we will try [...] unable to get in with her own dye room helper, could consider referral to Dr. Esqueda. Patient wants me to hold off on referral today. All quetsions answered to patients satisfaction. Patient verbalized understanding of diagnosis and treatments explained. To call sooner prior to next visit it any questions/concerns arise. Case discussed with collaborating physician Sukhi aGrcia who reviewed the assessment and plan. Chart, medications, labs, vital signs reviewed. Dictation was accomplished with the use of [employer] voice recognition software, prone to medical misidentifications and grammatical errors. This is unintentional and the practitioner does try to identify and correct these, but some could still be present. Please do not hesitate to contact practitioner for clarification. 01/08/2025 Elevated lipids (ICD-10 - E78.5) # Stye/blepharitis of the right eye. Patient will contact dye room helper. Allergic to doxycycline therefore we will try [...] unable to get in with her own dye room helper, could consider referral to Dr. Esqueda. Patient [...] Dictation was accomplished with the use of [employer] voice recognition software, prone to medical misidentifications and grammatical errors. This is unintentional and the practitioner does try to identify and correct these, but some could still be present. Please do not hesitate to contact practitioner for clarification. 01/08/2025 Seasonal allergies (ICD-10 - J30.2) # Stye/blepharitis of the right eye. Patient will contact dye room helper. Allergic to doxycycline therefore we will try [...] unable to get in with her own dye room helper, could consider referral to Dr. Esqueda. Patient [...] Dictation was accomplished with the use of [employer] voice recognition software, prone to medical misidentifications [...] Dictation was accomplished with the use of [employer] voice recognition software, prone to medical misidentifications [...] this knee has been bothersome, follows with [place] [facility]. Sustained a cortisone injection back [...] Dictation was accomplished with the use of [employer] voice recognition software, which is prone to [...] Decrease in bone density 5 4% since 2023. Patient has tried Fosamax, which she got [...] log exercise and discussed fitness Apps like EverTrue which can help keep log off calories [...] Dictation was accomplished with the use of [employer] voice recognition software, prone to medical misidentifications [...] log exercise and discussed fitness Apps like EverTrue which can help keep log off calories [...] Dictation was accomplished with the use of [employer] voice recognition software, prone to medical misidentifications [...] Dictation was accomplished with the use of [employer] voice recognition software, prone to medical misidentifications [...] this knee has been bothersome, follows with [place] [facility] surgery. Sustained a cortisone injection back [...] Dictation was accomplished with the use of [employer] voice recognition software, which is prone to medical misidentifications and grammatical errors. This are unintentional and the practitioner does try to identify and correct these, but some could still be present. Please do not hesitate to contact practitioner for clarification. 01/08/2025 Vitamin D deficiency (ICD-10 - E55.9) # Stye/blepharitis of the right eye. Patient will contact dye room helper. Allergic to doxycycline therefore we will try azithromycin, and topical neomycin polymyxin dexamethasone ointment. Discussed proper use, and side effects. # Chest palpitations: EKG showing bradycardia at Previous visit, but otherwise without concern. Ordered exercise stress test which was positive during the test, so she is following with cardiology Dr. Carednas. Having repeat echo, was put on a [...] unable to get in with her own dye room helper, could consider referral to Dr. Esqueda. Patient [...] Dictation was accomplished with the use of [employer] voice recognition software, prone to medical misidentifications and grammatical errors. This is unintentional and the practitioner does try to identify and correct these, but some could still be present. Please do not hesitate to contact practitioner for clarification. 01/08/2025 Essential hypertension (ICD-10 - I10) # Stye/blepharitis of the right eye. Patient will contact dye room helper. Allergic to doxycycline therefore we will try [...] unable to get in with her own dye room helper, could consider referral to Dr. Esqueda. Patient [...] Dictation was accomplished with the use of [employer] voice recognition software, prone to medical misidentifications [...] Dictation was accomplished with the use of [employer] voice recognition software, prone to medical misidentifications [...] log exercise and discussed fitness Apps like EverTrue which can help keep log off calories [...] Dictation was accomplished with the use of [employer] voice recognition software, prone to medical misidentifications [...] Dictation was accomplished with the use of [employer] voice recognition software, prone to medical misidentifications and grammatical errors. This is unintentional and the practitioner does try to identify and correct these, but some could still be present. Please do not hesitate to contact practitioner for clarification. 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 Patient will contact dye room helper. Allergic to doxycycline therefore we will try [...] unable to get in with her own dye room helper, could consider referral to Dr. Esqueda. Patient [...] Dictation was accomplished with the use of [employer] voice recognition software, prone to medical misidentifications [...] log exercise and discussed fitness Apps like EverTrue which can help keep log off calories [...] Dictation was accomplished with the use of [employer] voice recognition software, prone to medical misidentifications and grammatical errors. This is unintentional and the practitioner does try to identify and correct these, but some could still be present. Please do not hesitate to contact practitioner for clarification. 01/08/2025 Hordeolum externum of right upper eyelid (ICD-10 - H00.011) # Stye/blepharitis of the right eye. Patient will contact dye room helper. Allergic to doxycycline therefore we will try [...] unable to get in with her own dye room helper, could consider referral to Dr. Esqueda. Patient [...] Dictation was accomplished with the use of [employer] voice recognition software, prone to medical misidentifications [...] log exercise and discussed fitness Apps like EverTrue which can help keep log off calories [...] Dictation was accomplished with the use of [employer] voice recognition software, prone to medical misidentifications [...] log exercise and discussed fitness Apps like EverTrue which can help keep log off calories [...] Dictation was accomplished with the use of [employer] voice recognition software, prone to medical misidentifications and grammatical errors. This is unintentional and the practitioner does try to identify and correct these, but some could still be present. Please do not hesitate to contact practitioner for clarification. Plan Of Treatment Pending Test Test Name Order Date Barium Swallow 07/15/2024 X ray : Knee, right 2 views [...] SIMMS, 03/31/2025 11:15:00 AM, [address], [place], [address], Insurance Providers Payer Name Payer Address Payer Phone Subscriber Number Group Number Insured Name Patient Relationship to Insured Coverage Start Date Coverage End Date Medicare Part B J14 [address] [place] [address] [phone] [id number] Izzy Hale Self - patient is the insured [employer] [address] [place] [address] [id number] Izzy Hale Self - patient is the insured Medications Administered Medication Instructions Date of Administration Dosage Notes Prolia 01/08/2025 1 mL LOT #[id number] Medical (General) History Medical History History ICD Code Osteoporosis M81.0 Seasonal allergies J30.2 Hiatal hernia K44.9 Osteoarthritis M19.90 GERD (gastroesophageal reflux disease) K 21.9 Surgical History Surgery Date(Month/Year) oral surgery - gum grafting left knee surgery 2014 laser eye surgery - right eye June 29
--- OUTSIDE RECORDS SUMMARY | 2025-01-21 18:12 | XMS_ITS | Clinical Summary ---
Author Organization [facility] Address [address] [place] [address] Phone Care Team Providers Care Content Analyst Name Role Phone Patricia Garcia MD Primary Care Provider [phone] Allergies Active Allergy Reactions Criticality Noted Date [...] 9:45 AM EDT Office Visit Pulmonolgy - [place] [address] [facility] [address] [place] [address] Casey Guerra MD [address] [facility] [address] [place] [address] Health Maintenance Due Date Last Done Comments [...] mammogram BILATERAL in 1 year. Mammo Location: [facility], [address] [place] [address], [id number], . -------- FINAL REPORT -------- Dictated By: Monique Nunez Dictated Date: 08/11/2024 15:10 ET Assigned Physician: Moniuqe Nunez Reviewed and Electronically Signed By: Monique Nunez Signed Date: 08/11/2024 15:12 ET Workstation ID: [id number] Transcribed By: Self Edit Transcribed Date: 08/11/2024 [...] and MLO projections. 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 TISSUE DENSITY: b. [...] CCand MLO projections. Computer aided detection with [employer] 3D 3.1was employed. TISSUE DENSITY: b. There [...] mammogram BILATERAL in 1 year. Mammo Location: [facility], [address] [place] [address], [id number], . -------- FINAL REPORT -------- Dictated By: Monique Nunez Dictated Date: 08/11/2024 15:10 ET Assigned Physician: Monique Nunez Reviewed and Electronically Signed By: Monique Nunez Signed Date: 08/11/2024 15:12 ET Workstation ID: [id number] Transcribed By: Self Edit Transcribed Date: 08/11/2024 15:10 ET Patricia Garcia MD IMG BI PROCEDURES Final Result * TRISTAN DEXA AXIAL SKELETON (02/08/2024 10:10 AM EDT) Anatomical Region Laterality Modality Mammography 02/08/2024 9:01 AM EDT Narrative 02/08/2024 10:10 AM EDT [facility] Diagnostic Imaging Department [address] [place] [id number] Patient: ??IZZY HALE ?/Age/Sex: 1955 Unit#: ??[id number] ? Location/Status: ??SPDIMAM/REG CLI ? Mnemonic/Ordering Site: [...] probability of hip fracture of 1.6%. Code [address] CT Teleradiology Dictating Physician: ??LUIS SONG MD Electronically Signed by: ??LUIS SONG MD Dic Date/Time: ??02/08/24 1005 Sign date/Time: ??02/08/24 1010 Procedure Note Luis Song MD - 04/28/2024 [facility] Diagnostic Imaging Department [address] [place] [address] Patient: IZZY HALE Jose Manuel /Age/Sex: 1955 - 68 - F Unit#: [id number] Location/Status: [facility] CLI [facility] Ordering Physician: PATRICIA GARCIA MD Tristan [...] density of the femurs bilaterally is 0.0 gm/js0bzcaf is 88% of that of young normals [...] probability of hip fracture of 1.6%. Code [address] CT Teleradiology Dictating Physician: LUIS SONG MD Electronically Signed by: LUIS SONG MD Dic Date/Time: 02/08/24 1005 Sign date/Time: 02/08/24 1010 Patricia Garcia MD IMG BI PROCEDURES Final Result from Last 3 Months or Most Recently Relevant to Health Maintenance Insurance MEDICARE UNICARE Care Teams Content Analyst Relationship Specialty Start Date End Date Patricia Garcia MD [address] [place] [address] MANUEL VICK [id number] PCP - General Internal Medicine 09/30/24
--- OUTSIDE RECORDS SUMMARY | 2025-01-21 18:12 | XMS_ITS ---
Author Organization [facility] Address [address] [place] [address] Care Team Providers Care Fire Control Technician B Name Role Phone PATRICIA STEWARD Unavailable [phone] YOBANY SIMMS Unavailable [phone] REASON FOR VISIT 6 month f/u Encounters Encounter Location Date Provider Diagnosis [facility] [address] [place] [address] 10/07/2024 YOBANY SIMMS Plan Of Treatment Next Appt Details Provider Name:YOBANY SIMMS, 03/31/2025 11:15:00 AM, [address], [place], [address], Progress Notes * Izzy HALEDOB:1955 (69 yo F)Acc No.[id number]:10/07/2024 Progress Notes Patient:Izzy SANON Provider:?YOBANY RACHEL PA-C :1955???Age:68 Y???Sex:Female D ate:10/07/2024 Address:[address], [place] Subjective: * Chief Complaints: * ???1. 6 month f/u. * Medical History:? Objective: * Vitals:? Assessment: Plan: * Treatment: * Billing Information: * Visit Code:? * Procedure Codes:? Care Plan Details* * Electronic signature of PADILLA SIMMS PA-C on 01/21/2025 at 06:12 PM EDT Sign off status: Pending * Provider:?YOBANY RACHEL PA-C Date:?2024 Generated for Mick crandall/Christine/eTransmitting on:?01/21/2025 06:12 PM EDT
--- OUTSIDE RECORDS SUMMARY | 2025-01-21 18:12 | XMS_ITS ---
Author Name [facility] Organization Unknown Encounters Encounter Type Encounter Reason Primary Diagnosis Location Date Ambulatory [facility] 07/08/2024 Care Team Organization Name Specialty Phone Email Start Date End Da te [facility] 2024
== END 2025-01-21 18:11 | disposition home or self-care (01) ==
LOC: HO.MRI 18:10
PROVIDERS: PCP Internal Medicine; Visit Provider Internal Medicine
DX: M25.561 Pain in right knee (principal); M25.562 Pain in left knee
CPT/HCPCS: 73721

== ENCOUNTER → 2025-01-21 18:19 | Outpatient (BNV) | payer MEDICARE, OTHER, SELFPAY | PROVIDERS: PCP Internal Medicine; Visit Provider Radiology Diagnostic Radiology | DX: M25.562 Pain in left knee (principal); M25.561 Pain in right knee | CPT/HCPCS: 73721 ==